=== PATIENT | female | born 1980 | race Hispanic/Latino ===

== ENCOUNTER 2019-07-06 18:53 | Inpatient (IN) | payer MEDICAID, SELFPAY ==
--- NOTE | ~2019-07-06 | CT_ITS ---
EXAMINATION: CT chest w con DATE: 07/06/2019 20:55 INDICATION: Chest mass TECHNIQUE: Computed tomography (CT) of the chest was performed with 100 cc Omnipaque 350 intravenous contrast. The dose-length product was 649.62 mGy-cm. Automated exposure control and iterative reconst ruction technique were employed. COMPARISON: None FINDINGS: There is a large soft tissue mass in the right thorax with serpiginous areas of internal va scularity particularly anteriorly. This soft tissue measures 17.5 x 14.1 x 11.9 cm. The mass abuts th e mediastinum with possible infiltration. There is slight deviation of the mediastinum to the left. T here is also mass effect on the dome of the liver. Heart size is normal. No significant pleural or pe ricardial effusion. No evidence for aortic aneurysm or dissection.0 no acute osseous abnormality. The re is a nonobstructing right renal stone. IMPRESSION: 1. Large soft tissue mass involving the right thorax with serpiginous internal vascularity. This mass like soft tissue measures 17.5 x 14.1 x 11.9 cm with mass effect on the mediastinum, surrounding lung and liver. Traumatic lung is a consideration, although there are no significant centrally located ai r bronchograms. Malignancies such as lymphoma is a consideration given the patient's age.. Recommend pulmonary referral with possible bronchoscopy for further assessment. Alternatively, percutaneous bio psy may be performed. Reviewed, dictated and finalized at location A. ISION CENTER MANAGER IMPRESSION: 1. Large soft tissue mass involving the right thorax with serpiginous internal vascularity. This masslike soft tissue measures 17.5 x 14.1 x 11.9 cm with mass effect on the mediastinum, surrounding lung and liver. Traumatic lung is a con sideration, although there are no significant centrally located air bronchogram s. Malignancies such as lymphoma is a consideration given the patient's age.. R ecommend pulmonary referral with possible bronchoscopy for further assessment. Alternatively, percutaneous biopsy may be performed.
--- NOTE | ~2019-07-06 | US_ITS ---
EXAMINATION: US abdomen complete DATE: 07/07/2019 14:03 INDICATION: Abdominal pain TECHNIQUE: Multiple grayscale and Doppler ultrasound images of the abdomen were obtained. COMPARISON: CT, 07/06/2019 FINDINGS: The head and and body of the pancreas are normal. The pancreatic tail is obscured by bowel gas. The liver is normal with normal echogenicity and echotexture. No surface nodularity. Normal hep atopetal flow in the main portal vein. The gallbladder is normal with no abnormal wall thickening, pe richolecystic fluid or stones. The normal common bile duct measures 4 mm. There was no sonographic Mu rphy sign. The visualized portions of the aorta and inferior vena cava are normal. The right kidney measures 9.5 x 4 x 4.4 cm. The left kidney measures 12.7 x 5.4 x 6.8 cm. The kidneys demonstrate normal parenchymal echogenicity. There is no hydronephrosis. The spleen is normal in dorys earance and measures 10.5 cm. A partially imaged mass is seen in the right pleural space. IMPRESSION: 1. No sonographic correlate for the patient's symptoms. 2. Partially imaged mass of the right pleural space. 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 Additional differential considerations include developmental anomaly of the lung or sarcoma azul rea these are considered less likely. Given the apparent pleural location of the mass, CT-guided perc utaneous biopsy is recommended. These findings and recommendations were discussed with Dr. Sheila Flores MD at 1452 hours on 07/07/2019. Reviewed, dictated and finalized at location A. PURIFIER IMPRESSION: 1. No sonographic correlate for the patient's symptoms. 2. Partially imaged mass of the right pleural space. With review of the CT perf ormed yesterday, the mass appears to be predominantly located within the pleura l space, suggesting fibrous tumor of the pleura. Additional differential consid erations include developmental anomaly of the lung or sarcoma however these are considered less likely. Given the apparent pleural location of the mass, CT-gu ided percutaneous biopsy is recommended. These findings and recommendations wer e discussed with Dr. Sheila Flores MD at 1452 hours on 07/07/2019.
--- NOTE | ~2019-07-06 | CT_ITS ---
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 TECHNIQUE: The procedure including was discussed with the patient using a medical scientific liaison. Risks discussed included bleeding and infection. The patient understood the risks and agreed to proceed. The patient was placed supine. The skin overlying the right chest was prepped and draped in sterile fashion. A nesthetic was administered with 1% lidocaine subcutaneously. A 19 gauge outer needle was advanced un jadile CT guidance to the lesion of interest. A 20 gauge core biopsy needle was then used to obtain 3 co re biopsy specimens. The needle was removed and the entry site was cleaned and dressed. The mA was ad justed according to patient size. Iterative reconstruction technique was employed. The dose-length pr oduct was 99.30 mGy-cm. There were no immediate complications. FINDINGS: CT images demonstrate the outer needle tip in a 17 cm pleural-based mass in right lung. IMPRESSION: 1. CT-guided core needle biopsy of a pleural-based mass in right lung. Reviewed, dictated and finalized at location A. ER OPERATOR
--- NOTE | ~2019-07-06 | CT_ITS ---
EXAMINATION: CT abdomen pelvis wo con DATE: 07/06/2019 20:03 INDICATION: Renal stones TECHNIQUE: Computed tomography (CT) of the abdomen and pelvis was performed without intravenous contr ast. The dose-length product was 685.26 mGy-cm. Automated exposure control and iterative reconstructi on technique were employed. COMPARISON: None. FINDINGS: Right lower lobe atelectasis. Heart size normal. No significant pleural or pericardial effu bret. There is a large right lower lobe mass is incompletely visualized. This mass measures maximum m easurement at 17.5 cm AP x14.1 cm transverse. There is mass effect on the adjacent liver. There is a 3 mm right renal stone which is nonobstructing. Small fat-containing umbilical hernia. Gal lbladder is contracted. No acute osseous abnormality. IMPRESSION: 1. Large soft tissue mass right lower lobe, incompletely visualized. This may represent focal parench ymal consolidation secondary to obstruction, although malignancy is not excluded. There is mass effec t on the adjacent liver. 2: 3 mm nonobstructing right renal stone. Reviewed, dictated and finalized at location A. AL POPPER IMPRESSION: 1. Large soft tissue mass right lower lobe, incompletely visualized. This may r epresent focal parenchymal consolidation secondary to obstruction, although mal ignancy is not excluded. There is mass effect on the adjacent liver. 2: 3 mm nonobstructing right renal stone.
[2019-07-06 18:56] VITALS: BP 154/106; PULSE 98; RESP 18; TEMP 36.6; O2SAT 98
[2019-07-06 19:28] LABS: Add Urine Microscopic? YES; Appearance Urine Clear (Clear); Bilirubin Urine Negative (Negative); Blood Urine 2+ (Negative); Color Urine Yellow (Yellow); Glucose Urine UA Negative (Negative); Ketones Urine Negative (Negative); Leukocyte Esterase Ur Negative LEU/UL (Negative); Mucus Urine Rare /lpf; Nitrate Urine Negative (Negative); Protein Urine Negative (Negative); RBC Urine 51-75 /hpf (0-2); Specific Grav Ur 1.021 (1.001-1.035); Squamous Epithelial Cell Urine Rare /hpf (Few); Urobilinogen Urine Negative mg/dL (<2.0); WBC Urine 0-3 /hpf
[2019-07-06 19:29] LABS: Basophils Absolute Auto 0.1 K/mm3 (0.0-0.1); Basophils Percent Auto 0.6 % (0.2-1.2); Eosinophils Absolute Auto 0.2 K/mm3 (0-0.3); Hematocrit 37.5 % (37.0-47.0); Hemoglobin 11.1 g/dL (12.0-15.0); Immature Granulocyte Absolute 0.07 K/mm3 (0.00-0.031); Immature Granulocyte Percent A 0.6 % (0-0.5); Lymphocytes Percent Auto 24.3 % (18.3-44.2); Mean Corpuscular HGB Conc 29.6 g/dl (32-36); Mean Corpuscular Hemoglobin 20.8 pg (26-34); Mean Corpuscular Volume 70.2 fl (80-100); Mean Platelet Volume 9.7 fl (7.4-10.4); Monocytes Absolute Auto 0.9 K/mm3 (0.1-0.6); Monocytes Percent Auto 7.8 % (2.6-8.5); Neutrophils Absolute Auto 7.7 K/mm3 (1.3-6.7); Neutrophils Percent Auto 64.7 % (45.5-73.1); Platelet Count Result 441 k/mm3 (150-375); Red Blood Count 5.34 M/mm3 (4.2-5.4); Red Cell Distribution Width 17.4 % (11.5-14.5); White Blood Count 11.9 K/mm3 (4.5-10.0)
--- NOTE | 2019-07-06 19:40 | ED.ABDPAIN ---
HPI - Abdominal Pain General Chief Complaint: Abdominal Pain Stated Complaint: Possible Time Seen by Provider: 07/06/19 19:02 Source: patient, RN notes reviewed and treatment manager Mode of arrival: ambulatory Limitations: no limitations History of Present Illness HPI narrative: A 38 y/o female presents to the ED with lower ABD pain for the past 3 days. She reports associated nause and that the pain radiates into her lower back. She states that her LNMP was on 04/15/19 and that she was taking BC but that she stopped them roughly 2 weeks ago. She notes that she had some very mild spotting yesterday. 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 She denies any dysuria, hematuria, urinary frequency, diarrhea, constipation, SOB, CP, and any other medical complaints at this time. MD elicited complaint: abdominal pain Onset (ago): day(s) (3) Location: other (lower) Radiation: back (lower) Associated symptoms: nausea Related Data Allergies Allergy/AdvReac Type Severity Reaction Status Date / Time No Known Allergies Allergy Verified 07/06/19 19:14 Review of Systems Review of Systems: All systems reviewed & are unremarkable except as noted in HPI and below Constitutional: Constitutional: Denies chills, Denies fatigue, Denies fever(s), Denies headache(s) and Denies night sweats Eyes: Eyes: Denies change in vision, Denies loss of vision and Denies other visual disturbances ENT: Denies headache(s), Denies hoarseness, Denies epistaxis, Denies nasal congestion and Denies sore throat Cardiovascular: Cardiovascular: Denies chest pain, Denies leg edema, Denies palpitations and Denies dyspnea Respiratory: Respiratory: Denies cough, Denies dyspnea and Denies wheezing Gastrointestinal: Gastrointestinal: Reports abdominal pain (lower), Denies constipation, Denies diarrhea, Reports nausea and Denies vomiting Genitourinary: Genitourinary: Denies hematuria, Denies urinary frequency and Denies dysuria Musculoskeletal: Musculoskeletal: Denies abnormal gait, Reports back pain (lower radiated from ABD), Denies deformity, Denies joint swelling, Denies muscle weakness and Denies numbness Integumentary/Breasts: Skin/Breast: Denies rash, Denies unusual bruising and Denies wounds Neurologic: Denies abnormal gait, Denies headache(s), Denies focal weakness, Denies loss of vision and Denies numbness Psychiatric: Psychiatric: Reports no additional psychiatric complaints Endocrine: Endocrine: Denies fatigue and Denies palpitations Hematologic/Lymphatic: Hematologic/Lymphatic: Denies easy bleeding and Denies easy bruising Allergic/Immunologic: Allergic/Immunologic: Denies wheezing PMFSH Past Medical History Medical History (Updated 07/06/19 @ 22:49 by Vicente Patino MD) History of miscarriage Medical history unknown Surgical History Surgical History (Updated 07/06/19 @ 20:40 by James Pendleton) Surgical history unknown Social History Social History (Updated 07/06/19 @ 21:35 by James Pendleton) Smoking status: Unknown if ever smoked Gender identity (if verbalized by the patient): Female Exam Const: General: healthy appearing, no acute distress and well developed Nutritional Appearance: well nourished Orientation/consciousness: patient oriented x3 (alert) and Other orientation findings (Alert) Limitations: no limitations HENMT: Head: normocephalic and atraumatic Ears: external ears normal General nose exam: No nasal discharge present and no epistaxis Face and sinus: face symmetric Mouth: Yes lip normal, Yes tongue normal and Yes moist mucous membranes Throat: other (No exudate, no erythema) Eyes: Conjunctivae: conjunctivae normal Sclera: sclerae normal EOM: EOMs intact bilaterally Neck: Neck: full ROM, no lymphadenopathy and supple Thyroid: thyroid normal Chest: Chest palpation & inspection: no tenderness Resp: Effort & Inspection: normal respiratory effort Auscultation: no rales, no rhonchi, no wheezes, dim
[2019-07-06 19:42] LABS: Alanine Aminotransferase 17 U/L (4-35); Alkaline Phosphatase 90 U/L (38-126); Aspartate Amino Transferase 22 U/L (14-36); Bilirubin,Total 0.2 mg/dL (0.2-1.3); Blood Urea Nitrogen 12 mg/dL (7-17); Calcium 9.1 mg/dL (8.4-10.2); Carbon Dioxide 29 mmol/L (22-30); Chloride 99 mmol/L (98-107); Estimated CRCL calculation 136 ml/min; Estimated Glomerular Filt Rate > 60; Glucose 140 mg/dL (65-105); Lipase 84 U/L (23-300); Potassium 3.8 mmol/L (3.4-5.0); Sodium 136 mmol/L (137-145)
[2019-07-06 21:02] VITALS: BP 138/93; PULSE 82; RESP 18; TEMP 36.6; O2SAT 94
[2019-07-06 22:32] VITALS: BP 135/90; PULSE 92; RESP 16; TEMP 36.4; O2SAT 96
--- NOTE | 2019-07-06 23:35 | ADMGEN ---
This patient, Caterina Nuñez, was admitted to 2 Medical Room 249-01. Patient/family oriented to hospital policies and general routines including ID bracelet, bed and alarms, visiting hours, pain management, procedures, bathroom and other care routines, personal items, smoking policy, room service/diet, and visiting hours. Valuables list has been completed. Information on how to activate the Rapid Response Team has been discussed. Patient/Family are encouraged to report perceived risks to care and to ask questions if they do not understand what they are told or what they should do.
[2019-07-06 23:50] VITALS: BP 128/72; PULSE 90; RESP 18; TEMP 36.1; O2SAT 97; BMI 43.7
[2019-07-07] MEDS: LACTATED RINGERS 1,000 ML 60 ML IV CONT ×2 (00:21→19:20)
--- NOTE | 2019-07-07 05:54 | HP_ITS ---
DATE OF SERVICE: 07/06/2019 CHIEF COMPLAINT: Abdominal pain. HISTORY OF PRESENT ILLNESS: The patient is a 38-year-old female with no significant past medical history, was admitted to the emergency room with a complaint of having lower abdominal pain, going on for the last 3 days. According to the patient, her last menstrual cycle was on April 15, 2019, and she was taking control pills, and she then stopped taking control pills 2 weeks ago, and she started having mild spotting, and also she developed lower abdominal pain that she assumed was secondary to her spotting. Pain was dull in nature, nonradiating, and no exacerbating or relieving factors. The patient took some Tylenol and she got relief from the pain. It came back as a cramping pain in the lower abdominal area. The patient denies any burning on urination, fever, chills, chest pain, nausea, or vomiting, no weight loss. REVIEW OF SYSTEMS: Positive for lower abdominal pain and spotting. All other 10 review of systems were reviewed with the patient and found to be negative. ALLERGIES: THE PATIENT IS NOT ALLERGIC TO ANY MEDICATIONS. PAST MEDICAL HISTORY: None. PAST SURGICAL HISTORY: None. SOCIAL HISTORY: No smoking. No alcohol. FAMILY HISTORY: Noncontributory. MEDICATIONS: No known medications at the present time. PHYSICAL EXAMINATION: VITAL SIGNS: At the time of admission include blood pressure was 154/106, it came down to 135/90, pulse rate 80, respirations 18, temperature 98.6, pain level, level 2. HEENT EXAMINATION: Pupils are equally reactive to light. Follows finger. NECK: No JVD. No bruits. Neck is supple. LUNGS: Air entry equal. No distant sounds. HEART: S1 and S2. Rate and rhythm are regular. No S3. No murmurs. ABDOMEN: Soft and nontender. Bowel sounds are positive. No hepatosplenomegaly. EXTREMITIES: No cyanosis, clubbing, or edema. TILER: Alert and oriented x3. No neurological deficits. PERTINENT LABORATORY DATA: WBC count is 11.9, hemoglobin is 11.1, and platelet count is 441. Sodium 136, potassium 3.8, BUN 12, creatinine 0.5, glucose is 140. The patient's UA shows rbc's 51 to 75, nitrite negative, leukocyte esterase negative, and wbc's 0 to 3. Sodium 136. Glucose 140. The patient's abdominal CT was done that showed a large soft tissue mass in the right lower lobe, incompletely visualized. This may represent consolidation secondary to obstruction, although malignancy is not excluded. This was a mass effect on the adjacent liver. A 3 mm nonobstructing right renal stone. CT chest: A large soft tissue mass involving the right thorax with internal vascularity. This mass-like soft tissue measuring 17.5 x 14 x 11 cm with mass effect in the mediastinum surrounding the lung and the liver, traumatic lung is consideration, although there are no significant centrally located air lymphoma is consideration given the patient's age. Bronch is recommended. ASSESSMENT AND PLAN: 1. Lower abdominal pain. 2. Incidental finding of a mass in the chest area. Plan: Admit and hem-onc consult. The patient's WBC count is although 11.1, but the patient does not have any sign of infection at the present time. We will hold off on antibiotic at the present time. The patient does not have any fever. 3. Slightly elevated glucose. We will monitor the glucose closely. The patient will stay for more than 2 days in the hospital. The patient is full code at the present time. Further evaluation and treatment of the patient will be done according to the lab data available and recommendations by the specialists. We will also monitor anemia very closely, and if needed, we will also get ob-counter tender consult for her spotting. D
[2019-07-07 06:11] VITALS: BP 168/61; PULSE 63; RESP 16; TEMP 37.7; O2SAT 100
--- NOTE | 2019-07-07 11:17 | PCCCNOTE ---
On 07/07/19, the student, [Rosaura High ], provided care and [facility]. I have reviewed the student's documentation and agree with the findings.
--- NOTE | 2019-07-07 11:30 | PM.IMPN ---
Progress Note: A&P Assessment and Plan (1) Mass in chest: Code(s): R22.2 - Localized swelling, mass and lump, trunk Status: Acute Assessment and Plan: CT chest shows Large soft tissue mass involving the right thorax with serpiginous internal vascularity. This masslike soft tissue measures 17.5 x 14.1 x 11.9 cm with mass effect on the mediastinum, surrounding lung and liver. I will consult pulmology for possible bronchoscopy. consult hem oncology tomorrow. (2) Menorrhagia: Code(s): N92.0 - Excessive and frequent menstruation with regular cycle Status: Acute Assessment and Plan: I will also consult tool design drafter for menorrhagia and irregular spotting. Pt is Cymro speaking aware that she will be seen by specialists. (3) Liver mass: Code(s): R16.0 - Hepatomegaly, not elsewhere classified Status: Acute Assessment and Plan: Order US of liver for better visualisation (4) DVT prophylaxis: Code(s): Z29.9 - Encounter for prophylactic measures, unspecified Status: Acute Assessment and Plan: SCDS Subjective Date/time seen: 07/07/19 11:30 Interval history: 38-year-old female with no significant past medical history, was admitted to the emergency room with a complaint of having lower abdominal pain, going on for the last 3 days. Complains of abdominal cramps and slight vaginally spotting. CT chest shows Large soft tissue mass involving the right thorax with serpiginous internal vascularity. This masslike soft tissue measures 17.5 x 14.1 x 11.9 cm with mass effect on the mediastinum, surrounding lung and liver. I will consult pulmology for possible bronchoscopy. I will also consult tool design drafter for menorrhagia and irregular spotting. Pt is Cymro speaking aware that she will be seen by specialists. Review of Systems Review of Systems: All systems reviewed & are unremarkable except as noted in HPI and below Constitutional: Constitutional: Reports fatigue, Reports lethargy and Reports weakness Genitourinary: Comments: abdominal pains lower Exam Narrative: Exam Narrative: NECK: No JVD. No bruits. Neck is supple. LUNGS: Air entry equal. No distant sounds. HEART: S1 and S2. Rate and rhythm are regular. No S3. No murmurs. ABDOMEN: Soft and nontender. Bowel sounds are positive. No hepatosplenomegaly. EXTREMITIES: No cyanosis, clubbing, or edema. PHOTOFLASH POWDER MIXER: Alert and oriented x3. No neurological deficits. Objective Data Vital Signs Vital Signs: Vital Signs - 24 hr 07/06/19 18:56 07/06/19 21:02 07/06/19 22:32 Temperature 36.6 C 36.6 C 36.4 C Pulse Rate 98 82 92 Respiratory Rate 18 18 16 Blood Pressure 154/106 H 138/93 H 135/90 Pulse Oximetry 98 94 96 07/06/19 23:50 07/07/19 06:11 Temperature 36.1 C L 37.7 C H Pulse Rate 90 63 Respiratory Rate 18 16 Blood Pressure 128/72 168/61 H Pulse Oximetry 97 100 Intake/Output Intake/Output: Intake & Output 07/04/19 07/05/19 07/06/19 07/07/19 23:59 23:59 23:59 23:59 Intake Total 240 Output Total 800 Balance -560 Meds/Results Medications: Active Medications Generic Name Dose Route Start Last Admin Trade Name Freq PRN Reason Stop Dose Admin Acetaminophen 650 mg 07/06/19 22:42 Tylenol Tablet PO Q4H PRN Mild Pain (1-3) or Fever Hydrocodone Bitart/Acetaminophen 1 tab 07/06/19 22:42 07/07/19 07:46 [place] 5-325 Mg PO 1 tab Q4H PRN Administration Pain Rated 4-6 Lactated Ringer's 1,000 mls @ 60 mls/hr 07/06/19 22:45 07/07/19 00:21 Lr - Lactated Ringers Iv IV CONT 60 mls/hr .[id number] WILL Administration Ondansetron HCl 4 mg 07/06/19 22:42 Zofran Inj IV PUSH Q4H PRN Nausea Radiology Results: ITS Impressions Abdomen/Pelvis CT 07/06/19 20:11 IMPRESSION: 1. Large soft tissue mass right lower lobe, incompletely visualized. This may represent focal parenchymal consolidation secondary to obstruction, although malignancy is not ex
[2019-07-07 14:00] VITALS: BP 132/81; PULSE 88; RESP 16; TEMP 36.9; O2SAT 96
[2019-07-07 15:37] LABS: Beta HCG Quantitative < 2.39 mIU/ML
[2019-07-07] MEDS: FERROUS SULFATE 324 MG TABLET PO (19:21)
[2019-07-07 20:01] LABS: Iron 50 ug/dL (37-170)
[2019-07-07 20:10] LABS: Percent Iron Saturation 10 % (20-50)
[2019-07-07 22:33] VITALS: BP 133/85; PULSE 81; RESP 16; TEMP 35.9; O2SAT 96
--- NOTE | 2019-07-08 02:41 | CONS_ITS ---
DATE OF CONSULTATION: 07/07/2019 REASON FOR CONSULTATION: Pleural base mass. HISTORY OF PRESENTING ILLNESS: This is a 38-year-old female, who has been in good health, came into the hospital with complaint of right-sided chest wall pain and abdominal pain for the last 3 to 4 days duration. She denies any fevers and chills. Denies any weight loss. Denies any night sweats. She also has pain in the lower extremities and neck. She has no new lumps, bumps, or lymphadenopathy. CT abdomen and pelvis was done that showed a 17.5 x 14.1 cm mass in the right lower lobe with mass effect on the adjacent liver. REVIEW OF SYSTEMS: Twelve-point review of system was reviewed and as per HPI, otherwise negative. PAST MEDICAL HISTORY: None. PAST SURGICAL HISTORY: None. SOCIAL HISTORY: Denies any history of smoking and drinking. FAMILY HISTORY: There is no history of malignancy in the family. HOME MEDICATIONS: Reviewed. ALLERGIES: REVIEWED. PHYSICAL EXAMINATION: GENERAL: This patient is an obese female, alert and oriented. VITAL SIGNS: Per nursing note. HEENT: Normocephalic, atraumatic. Clear oropharynx. LUNGS: Clear to auscultation bilaterally. CARDIOVASCULAR: Regular rate and rhythm. No murmurs. ABDOMEN: Tender in the right upper quadrant. Bowel sounds are positive. No hepatosplenomegaly. EXTREMITIES: No edema. NEUROLOGIC: Grossly intact. LABORATORY DATA: WBC 11.9, hemoglobin 11.1, MCV 70.2, platelet 441,000, neutrophils 64%, lymphocytes 24%, monocytes 0.9%, eosinophils 2.0, basophils 0.6. Creatinine 0.5, calcium 9.1, total bilirubin 0.2, AST 22, ALT 17. ASSESSMENT AND PLAN: 1. Large soft tissue mass involving right side of the thorax. The patient is a 38-year-old obese female, who presented with 3 to 4 days history of abdominal pain. CT scan was done that shows 17.5 x 14.1 cm mass in the right lower lobe area with some mass effect on the adjacent liver. CT chest was also performed that showed a large soft tissue mass involving the right side of the thorax with mass effect in the mediastinum surrounding lung and liver. Differential diagnosis includes lymphoma versus sarcoma versus benign etiology. I have ordered CT-guided biopsy of the mass. I have provided this patient my office information. Based on the pathology, we will make further recommendations. 2. Microcytic anemia. I will order iron studies and we will start her on iron replacement. POORNIMA Carmelo HILL M.D. WIRE STEWARD WIRE STEWARD D [place]: [place]
[2019-07-08 05:56] LABS: Hemoglobin 11.2 g/dL (12.0-15.0); Mean Corpuscular HGB Conc 30.3 g/dl (32-36); Mean Corpuscular Volume 69.4 fl (80-100); Mean Platelet Volume 9.8 fl (7.4-10.4); Platelet Count Result 426 k/mm3 (150-375); Red Blood Count 5.33 M/mm3 (4.2-5.4); Red Cell Distribution Width 17.2 % (11.5-14.5); White Blood Count 10.6 K/mm3 (4.5-10.0)
[2019-07-08 06:01] LABS: Prothrombin Time 13.2 Seconds (11.1-14.7)
[2019-07-08 06:04] LABS: Blood Urea Nitrogen 11 mg/dL (7-17); Calcium 8.8 mg/dL (8.4-10.2); Carbon Dioxide 25 mmol/L (22-30); Chloride 102 mmol/L (98-107); Estimated CRCL calculation 156 ml/min; Estimated Glomerular Filt Rate > 60; Glucose 96 mg/dL (65-105); Potassium 3.4 mmol/L (3.4-5.0); Sodium 136 mmol/L (137-145)
[2019-07-08 06:15] VITALS: BP 126/74; PULSE 88; RESP 18; TEMP 35.8; O2SAT 96
[2019-07-08] MEDS: LACTATED RINGERS 1,000 ML 60 ML IV CONT (09:31)
[2019-07-08] MEDS: FERROUS SULFATE 324 MG TABLET PO ×2 (09:34→17:43)
[2019-07-08] MEDS: ALPRAZOLAM 0.5 MG TABLET PO (09:56)
[2019-07-08 10:30] VITALS: BP 143/93; PULSE 85; RESP 16; O2SAT 93
[2019-07-08 11:14] VITALS: BP 141/81; PULSE 88; RESP 18; O2SAT 94
--- NOTE | 2019-07-08 12:39 | WPDCN ---
Assessment and Plan Assessment and plan (1) Irregular periods: Onset Date: ~06/2019 Code(s): N92.6 - Irregular menstruation, unspecified Status: Acute Assessment and Plan: 38-year-old female with a history of an one time late period. She started her period several days ago and this was after she stopped her control pills which is expected. She does not have any concerning history for irregular periods. Her bimanual exam was normal. Her test was negative. She was informed that the one irregular period is not uncommon once is ruled out. Agree with cessation of the oral contraceptive pill until the etiology of the thoracic mass is fully worked up. After that she can discuss with her land title examiner if it would be okay to continue hormonal contraception. At this time no further workup is needed from the gynecology service. She should follow up with her primary land title examiner. HPI Data of Consult Date/Time: Patient seen on 07/07/2019 1630. Requesting Physician: Gian Mireles MD Primary Care Provider: UNKNOWN,DOCTOR Consult Narrative Narrative: Caterina Nuñez is a 38 year old female 014. She has had one vaginal and three C sections I was asked to consult on her due to history of irregular bleeding. She was found to have a mass in her upper abdomen at this admission. I did talk to her with the [employer] interpreting system. She states that she had been on Nexplanon for over a year she had it taken out a year ago. She was started on control pills. Her periods have been regular on control pills. She did notice that her last period was late. she was over a week late. She was also having nausea and she stopped her control pills due to concern for . She did schedule a para operator visit for her routine Gyne polyp which was scheduled for Friday. Her last Pap smear was in September of 2018. She denies any history of dysplasia. She did start having a light period 3 days ago. she denies any history of bleeding in between her. Denies any history of heavy periods Her recent hemoglobin hematocrit was normal. She does not have any hypovolemic symptoms. Her serum test was negative. she denies any abnormal vaginal discharge itching or irritation. Denies any pain with intercourse. Review of Systems Review of Systems: All systems reviewed & are unremarkable except as noted in HPI and below Constitutional: Constitutional: Reports no additional constitutional complaints Eyes: Eyes: Reports no additional eye complaints ENT: Reports Normal hearing present Cardiovascular: Cardiovascular: Denies chest pain and Denies dyspnea Respiratory: Respiratory: Reports no additional respiratory complaints, Reports cough, Denies dyspnea and Reports other Gastrointestinal: Gastrointestinal: Reports nausea and Reports other ( Abdominal pain) Genitourinary: Genitourinary: Reports no additional female genitourinary complaints, Reports as per HPI, Denies dyspareunia, Denies vaginal discharge, Denies vaginal dryness, Denies vaginal odor and Denies vaginal pruritus Integumentary/Breasts: Skin/Breast: Denies breast mass and Denies nipple discharge Neurologic: Reports Normal hearing present Psychiatric: Psychiatric: Reports no additional psychiatric complaints Endocrine: Endocrine: Reports no additional endocrine complaints Hematologic/Lymphatic: Hematologic/Lymphatic: Reports no additional hematologic/lymphatic complaints [facility] Past Medical History Medical History (Updated 07/08/19 @ 12:49 by Yves Hatch MD) History of miscarriage Medical history unknown Surgical History Surgical History (Updated 07/06/19 @ 20:40 by James Pendleton) Surgical history unknown Social History Social History (Updated 07/06/19 @ 21:35 by James Pendleton) Smoking status: Never smoker Alcohol intake: never Substance use: never Gender identity (if verbalized
--- NOTE | 2019-07-08 13:37 | PM.IMPN ---
Progress Note: A&P Assessment and Plan (1) Mass in chest: Code(s): R22.2 - Localized swelling, mass and lump, trunk Status: Acute Assessment and Plan: CT chest shows Large soft tissue mass involving the right thorax with serpiginous internal vascularity. This masslike soft tissue measures 17.5 x 14.1 x 11.9 cm with mass effect on the mediastinum, surrounding lung and liver. Pt for a CT guided lung biopsy today under radiology. Ct chest shows R sided thoracic mass maybe from the pleural space. (2) Menorrhagia: Code(s): N92.0 - Excessive and frequent menstruation with regular cycle Status: Acute Assessment and Plan: I will also consult tower climber for menorrhagia and irregular spotting. Pt is Mozambican speaking aware that she will be seen by specialists. See Dr Felix recommendations. (3) Liver mass: Code(s): R16.0 - Hepatomegaly, not elsewhere classified Status: Acute Assessment and Plan: Liver US ordered - liver appears NL (4) DVT prophylaxis: Code(s): Z29.9 - Encounter for prophylactic measures, unspecified Status: Acute Assessment and Plan: SCDS Subjective Date/time seen: 07/08/19 13:37 Interval history: 38-year-old female with no significant past medical history, was admitted to the emergency room with a complaint of having lower abdominal pain, going on for the last 3 days. Complains of abdominal cramps and slight vaginally spotting. CT chest shows Large soft tissue mass involving the right thorax with serpiginous internal vascularity. This masslike soft tissue measures 17.5 x 14.1 x 11.9 cm with mass effect on the mediastinum, surrounding lung and liver. Pt seen by hematology/ oncology yesterday. Pt will have lung biopsy today. I will also consult tower climber for menorrhagia and irregular spotting. Pt is Moz[place]ican speaking aware that she will be seen by specialists. Review of Systems Review of Systems: All systems reviewed & are unremarkable except as noted in HPI and below Respiratory: Respiratory: Denies chest congestion, Denies cough, Denies hemoptysis, Denies excessive phlegm production, Denies pain with cough, Denies dyspnea, Denies dyspnea on exertion, Denies snoring and Denies stridor Exam Narrative: Exam Narrative: GENERALLY: Well NECK: No JVD. No bruits. Neck is supple. LUNGS: Air entry equal. No distant sounds. HEART: S1 and S2. Rate and rhythm are regular. No S3. No murmurs. ABDOMEN: Soft and nontender. Bowel sounds are positive. No hepatosplenomegaly. EXTREMITIES: No cyanosis, clubbing, or edema. HALAL BUTCHER: Alert and oriented x3. No neurological deficits. Objective Data Vital Signs Vital Signs: Vital Signs - 24 hr 07/07/19 14:00 07/07/19 22:33 07/08/19 06:15 Temperature 36.9 C 35.9 C L 35.8 C L Pulse Rate 88 81 88 Respiratory Rate 16 16 18 Blood Pressure 132/81 133/85 126/74 Pulse Oximetry 96 96 96 07/08/19 10:30 07/08/19 11:14 Temperature Pulse Rate 85 88 Respiratory Rate 16 18 Blood Pressure 143/93 H 141/81 H Pulse Oximetry 93 94 Intake/Output Intake/Output: Intake & Output 07/05/19 07/06/19 07/07/19 07/08/19 23:59 23:59 23:59 23:59 Intake Total 1820 897 Output Total 800 Balance 1020 897 Meds/Results Medications: Active Medications Generic Name Dose Route Start Last Admin Trade Name Freq PRN Reason Stop Dose Admin Acetaminophen 650 mg 07/06/19 22:42 Tylenol Tablet PO Q4H PRN Mild Pain (1-3) or Fever Hydrocodone Bitart/Acetaminophen 1 tab 07/06/19 22:42 07/07/19 14:44 [place] 5-325 Mg PO 1 tab Q4H PRN Administration Pain Rated 4-6 Alprazolam 0.5 mg 07/07/19 15:27 07/08/19 09:56 Xanax PO 0.5 mg TID PRN Administration Anxiety Ferrous Sulfate 324 mg 07/07/19 18:30 07/08/19 09:34 Ferrous Sulfate PO 324 mg BIDWM WILL Administration Lactated Ringer's 1,000 mls @ 60 mls/hr 07/06/19 22:45 07/08/19 09:31 Lr - Lactated Ringers Iv
[2019-07-08 14:00] VITALS: BP 143/74; PULSE 93; RESP 14; TEMP 37.3; O2SAT 95
[2019-07-08 20:00] VITALS: PULSE 93; RESP 14; O2SAT 95
[2019-07-08 22:00] VITALS: BP 124/64; PULSE 84; RESP 16; TEMP 36.2; O2SAT 97
[2019-07-09] MEDS: LACTATED RINGERS 1,000 ML 60 ML IV CONT (05:58)
[2019-07-09 06:00] VITALS: BP 110/67; PULSE 82; RESP 16; TEMP 36; O2SAT 94
[2019-07-09] MEDS: ACETAMINOPHEN 325 MG TABLET 650 MG PO (06:03)
[2019-07-09] MEDS: FERROUS SULFATE 324 MG TABLET PO ×2 (09:11→17:19)
--- NOTE | 2019-07-09 13:31 | PM.IMPN ---
Progress Note: A&P Assessment and Plan (1) Mass in chest: Code(s): R22.2 - Localized swelling, mass and lump, trunk Status: Acute Assessment and Plan: CT chest shows Large soft tissue mass involving the right thorax with serpiginous internal vascularity. This masslike soft tissue measures 17.5 x 14.1 x 11.9 cm with mass effect on the mediastinum, surrounding lung and liver. Pt for a CT guided lung biopsy today under radiology. Ct chest shows R sided thoracic mass maybe from the pleural space. Awaiting results. (2) Menorrhagia: Code(s): N92.0 - Excessive and frequent menstruation with regular cycle Status: Acute Assessment and Plan: I will also consult polisher and buffer for menorrhagia and irregular spotting. Pt is Polish speaking aware that she will be seen by specialists. See Dr Felix recommendations. (3) Liver mass: Code(s): R16.0 - Hepatomegaly, not elsewhere classified Status: Acute Assessment and Plan: Liver US ordered - liver appears NL (4) DVT prophylaxis: Code(s): Z29.9 - Encounter for prophylactic measures, unspecified Status: Acute Assessment and Plan: SCDS Subjective Date/time seen: 07/09/19 13:31 Interval history: 38-year-old female with no significant past medical history, was admitted to the emergency room with a complaint of having lower abdominal pain, going on for the last 3 days. Complains of abdominal cramps and slight vaginally spotting. CT chest shows Large soft tissue mass involving the right thorax with serpiginous internal vascularity. This mass like soft tissue measures 17.5 x 14.1 x 11.9 cm with mass effect on the mediastinum, surrounding lung and liver. Pt seen by hematology/ oncology yesterday. Pt sp lung biopsy yesterday, awaiting results, if no results soon, can be discharged with follow up with Dr Camp on the weekend. Pt had a consult polisher and buffer for menorrhagia and irregular spotting, pt can follow them as outpatient. Pt is Polish speaking using interpretor to conversate. Review of Systems Constitutional: Constitutional: Reports fatigue, Reports lethargy, Denies snoring and Reports weakness Respiratory: Respiratory: Reports no additional respiratory complaints Exam Narrative: Exam Narrative: GENERALLY: Well NECK: No JVD. No bruits. Neck is supple. LUNGS: Air entry equal. No distant sounds. HEART: S1 and S2. Rate and rhythm are regular. No S3. No murmurs. ABDOMEN: Soft and nontender. Bowel sounds are positive. No hepatosplenomegaly. EXTREMITIES: No cyanosis, clubbing, or edema. ELECTRONIC TESTER: Alert and oriented x3. No neurological deficits. Objective Data Vital Signs Vital Signs: Vital Signs - 24 hr 07/08/19 14:00 07/08/19 20:00 07/08/19 22:00 Temperature 37.3 C 36.2 C L Pulse Rate 93 93 84 Respiratory Rate 14 14 16 Blood Pressure 143/74 H 124/64 Pulse Oximetry 95 95 97 07/09/19 06:00 Temperature 36.0 C L Pulse Rate 82 Respiratory Rate 16 Blood Pressure 110/67 Pulse Oximetry 94 Intake/Output Intake/Output: Intake & Output 07/06/19 07/07/19 07/08/19 07/09/19 23:59 23:59 23:59 23:59 Intake Total 1820 2041 1116 Output Total 800 Balance 1020 2041 1116 Meds/Results Medications: Active Medications Generic Name Dose Route Start Last Admin Trade Name Freq PRN Reason Stop Dose Admin Acetaminophen 650 mg 07/06/19 22:42 07/09/19 06:03 Tylenol Tablet PO 650 mg Q4H PRN Administration Mild Pain (1-3) or Fever Hydrocodone Bitart/Acetaminophen 1 tab 07/06/19 22:42 07/08/19 14:26 [place] 5-325 Mg PO 1 tab Q4H PRN Administration Pain Rated 4-6 Alprazolam 0.5 mg 07/07/19 15:27 07/08/19 09:56 Xanax PO 0.5 mg TID PRN Administration Anxiety Ferrous Sulfate 324 mg 07/07/19 18:30 07/09/19 09:11 Ferrous Sulfate PO 324 mg BIDWM WILL Administration Lactated Ringer's 1,000 mls @ 60 mls/hr 07/06/19 22:45 07/09/19 05:58 Lr - Lactated Joel
[2019-07-09 14:00] VITALS: BP 129/82; PULSE 93; RESP 16; TEMP 36.6; O2SAT 96
--- NOTE | 2019-07-09 17:04 | WPDONCPN ---
Progress Note: A/P - Additional Plan Right-sided chest wall mass with displacement of mediastinum and liver. Patient is status post biopsy and pathology is pending. Patient can be discharged home for oncology standpoint and should follow up with us as an outpatient to discuss pathology report and management. Iron deficiency anemia. She is on oral iron replacement. Irregular and heavy menstrual bleeding. Gynecology service consulted. - Time Spent With Patient Total time spent is greater than 50% in coordination of care (as documented) at patient's floor/unit and/or counseling patient: 15 - 25 minutes Subjective Interval history: Right-sided chest wall mass with liver mass Microcytic anemia Review of Systems - Review of Systems Patient complain of right-sided chest wall pain and right arm and shoulder pain. Denies any shortness of breath and chest pain. Denies any other new complaints. - Neurologic Reports hearing normal, Reports weakness, Denies abnormal gait, Denies headache(s), Denies focal weakness, Denies loss of vision, Denies numbness Exam Vital signs: Temp Pulse Resp BP Pulse Ox 36.6 C 93 16 129/82 96 07/09/19 14:00 07/09/19 14:00 07/09/19 14:00 07/09/19 14:00 07/09/19 14:00 Lungs are clear to auscultation bilaterally Cardiovascular regular rate rhythm no murmurs Abdomen soft nontender nondistended Extremities no edema PN: Objective Data - Labs CBC & Chem 7: 07/08/19 05:08 07/08/19 05:08
[2019-07-09 20:00] VITALS: PULSE 82; RESP 18; O2SAT 96
[2019-07-09 22:00] VITALS: BP 119/73; PULSE 82; RESP 18; TEMP 36.6; O2SAT 96
[2019-07-10] MEDS: LACTATED RINGERS 1,000 ML 60 ML IV CONT (00:04)
[2019-07-10 06:00] VITALS: BP 114/64; PULSE 74; RESP 20; TEMP 36.4; O2SAT 98
[2019-07-10 06:00] LABS: Hematocrit 35.7 % (37.0-47.0); Hemoglobin 10.7 g/dL (12.0-15.0); Mean Corpuscular Hemoglobin 21.2 pg (26-34); Mean Corpuscular Volume 70.7 fl (80-100); Mean Platelet Volume 10.1 fl (7.4-10.4); Platelet Count Result 381 k/mm3 (150-375); Red Blood Count 5.05 M/mm3 (4.2-5.4); Red Cell Distribution Width 17.6 % (11.5-14.5); White Blood Count 9.4 K/mm3 (4.5-10.0)
[2019-07-10 06:19] LABS: Blood Urea Nitrogen 8 mg/dL (7-17); Calcium 8.7 mg/dL (8.4-10.2); Carbon Dioxide 23 mmol/L (22-30); Chloride 104 mmol/L (98-107); Estimated CRCL calculation 190 ml/min; Estimated Glomerular Filt Rate > 60; Glucose 89 mg/dL (65-105); Potassium 3.4 mmol/L (3.4-5.0); Sodium 136 mmol/L (137-145)
--- NOTE | 2019-07-10 08:38 | PM.DS ---
DS: Diagnosis Admitting Diagnosis Admitting Diagnosis: Localized swelling, mass and lump, trunk Discharge Diagnosis (1) Mass in chest: Code(s): R22.2 - Localized swelling, mass and lump, trunk Status: Acute Assessment and Plan: 38-year-old female with no significant past medical history, was admitted to the emergency room with a complaint of having lower abdominal pain, going on for the last 3 days. Complains of abdominal cramps and slight vaginally spotting. CT chest shows Large soft tissue mass involving the right thorax with serpiginous internal vascularity. This mass like soft tissue measures 17.5 x 14.1 x 11.9 cm with mass effect on the mediastinum, surrounding lung and liver. Pt seen by hematology/ oncology yesterday. Pt sp lung biopsy yesterday, still awaiting results, today, pt asymptomatic, can be discharged with follow up with Dr Camp, next week. Pt had a consult leaf stamper for menorrhagia and irregular spotting, pt can follow them as outpatient. Pt is Kazakh speaking using interpretor to conversate in hospital. CT chest shows Large soft tissue mass involving the right thorax with serpiginous internal vascularity. This masslike soft tissue measures 17.5 x 14.1 x 11.9 cm with mass effect on the mediastinum, surrounding lung and liver. Pt for a CT guided lung biopsy completed under radiology. Ct chest shows R sided thoracic mass maybe from the pleural space. Awaiting results. Pt must follow up in Dr Camp clinic next week. (2) Menorrhagia: Code(s): N92.0 - Excessive and frequent menstruation with regular cycle Status: Acute Assessment and Plan: I will also consult leaf stamper for menorrhagia and irregular spotting. Pt is Kazakh speaking aware seen by lead database administrator specialist- Dr Felix. Pt to follow up with her for further recommendations in her clinic. (3) Liver mass: Code(s): R16.0 - Hepatomegaly, not elsewhere classified Status: Acute Assessment and Plan: Liver US ordered - liver appears NL DS: Summary Time Spent with Patient Time attestation: Total time spent providing and/or coordinating discharge services:38 minutes on day of discharge Exam Narrative: Exam Narrative: GENERALLY: Well NECK: No JVD. No bruits. Neck is supple. LUNGS: Air entry equal. No distant sounds. HEART: S1 and S2. Rate and rhythm are regular. No S3. No murmurs. ABDOMEN: Soft and nontender. Bowel sounds are positive. No hepatosplenomegaly. EXTREMITIES: No cyanosis, clubbing, or edema. BRIDGE IRONWORKER: Alert and oriented x3. No neurological deficits. DS: Data Data Completed and Pending Labs on day of discharge: Labs from last 24 hours 07/10/19 07/10/19 05:21 05:21 WBC 9.4 RBC 5.05 Hgb 10.7 L Hct 35.7 L MCV 70.7 L MCH 21.2 L MCHC 30.0 L RDW 17.6 H Plt Count 381 H MPV 10.1 Sodium 136 L Potassium 3.4 Chloride 104 Carbon Dioxide 23 BUN 8 Creatinine 0.40 L Estim Creat Clear Calc 190 Estimated GFR > 60 Glucose 89 Calcium 8.7 Discharge Plan Discharge Attending physician on discharge: Sheila Flores Consulting providers: You Camp ; Yves Hatch Discharging Clinician: Sheila Flores Anticipated Discharge Date/Time: 07/10/19 08:37 Patient Disposition: Home, Self-Care Activity: as tolerated Diet: regular Patient Instructions: Antibiotic Form Stand Alone Forms: General Discharge Information Follow-up/Referrals: You Camp MD [Physician] - (next week urgent follow up ) Yves Hatch MD [Physician] - (follow up in 2-3 weeks time ) Discharge Medications: New ferrous sulfate 325 mg (65 mg iron) Tablet 324 mg PO BIDWM Qty: 30 RF: 0 No Action No Home Medications RF: 0 Date of admission: 07/06/19 22:42 Primary Care Provider: UNKNOWN,DOCTOR Admitting Provider: Cameron Mireles Attending physician on admission: Cameron Mireles Condition: Stable
[2019-07-10] MEDS: FERROUS SULFATE 324 MG TABLET PO (08:51)
[2019-07-10] MEDS: ACETAMINOPHEN 325 MG TABLET 650 MG PO (08:57)
[2019-07-10 09:02] LABS: Prolactin 9.4 ng/mL (***)
--- NOTE | 2019-07-10 12:00 | PC.NURSE ---
Lab Animal Technologist used for patients discharge care instructions. Spoke with Oly (#[id number]) for discharge instructions. Patient verbalized understanding and follow up instructions that are necessary for her care. Questions were answered.
== END 2019-07-10 12:15 | disposition home or self-care (01) | DRG 144 ==
LOC: ANHED 22:49 → ANH2MED 07-07 05:41
PROVIDERS: Internal Medicine Hematology & Oncology; Obstetrics & Gynecology; Admitting Provider Internal Medicine; Emergency Provider Emergency Medicine; Visit Provider Family Medicine
DX: R22.2 Localized swelling, mass and lump, trunk (principal); N92.0 Excessive and frequent menstruation with regular cycle; E66.9 Obesity, unspecified; Z68.41 Body mass index [BMI] 40.0-44.9, adult; N92.6 Irregular menstruation, unspecified; D50.9 Iron deficiency anemia, unspecified; R16.0 Hepatomegaly, not elsewhere classified
CPT/HCPCS: 32405; 36415; 71260; 74176; 76700; 77012; 80048; 80053; 81001; 81025; 82728; 83540; 83550; 83690; 84146; 84443; 84702; 85025; 85027; 85610; 88305; 88342; 99285; A9270; J7120; Q9967

== ENCOUNTER 2020-08-07 16:43 | Emergency (ER) | payer OTHER, SELFPAY ==
--- NOTE | ~2020-08-07 | US_ITS ---
EXAMINATION: US OB <=14 wk fetus w TV DATE: 08/07/2020 20:55 INDICATION: Vaginal bleeding during first trimester TECHNIQUE: Real-time pelvic transabdominal and transvaginal ultrasound was performed. COMPARISON: None. FINDINGS: The uterus measures 12.1 x 7.4 x 5.9 cm. There is an intrauterine gestational sac. A 2.8 x 0.9 cm hypoechoic area is present adjacent to the gestational sac. No definite yolk sac is identifie d. heart motion is identified measuring 154 beats per minute (bpm) by M-mode Doppler. The pole is difficult to definitively measure. The mean sac diameter measures 2.4 cm, which correlates w ith an estimated gestational age of 7 weeks and 3 day(s) (+/-) 5 day(s). The right ovary is not visualized however no right adnexal abnormality is seen. The left ovary measur es 2.3 x 2.2 x 2.2 cm. There is normal vascular flow in the left ovary. There is no free fluid in the pelvis. IMPRESSION: 1. Intrauterine gestational sac without distinct pole identified however cardiac motion i s seen. Gestational age based on mean sac diameter is 7 weeks and 3 day(s) (+/-) 5 day(s). 2. Small subchorionic hematoma. Reviewed, dictated and finalized at location A. ARATION ROOM WORKER IMPRESSION: 1. Intrauterine gestational sac without distinct pole identified however cardiac motion is seen. Gestational age based on mean sac diameter is 7 w eeks and 3 day(s) (+/-) 5 day(s). 2. Small subchorionic hematoma.
[2020-08-07 17:15] VITALS: BP 122/63; PULSE 94; RESP 18; TEMP 36.4; O2SAT 98
[2020-08-07 17:38] LABS: Basophils Absolute Auto 0.1 K/mm3 (0.0-0.1); Basophils Percent Auto 0.4 % (0.2-1.2); Eosinophils Absolute Auto 0.2 K/mm3 (0-0.3); Eosinophils Percent Auto 1.6 % (0-4.4); Hematocrit 34.1 % (37.0-47.0); Immature Granulocyte Absolute 0.06 K/mm3 (0.00-0.031); Immature Granulocyte Percent A 0.4 % (0-0.5); Lymphocytes Absolute Auto 3.23 K/mm3 (0.9-3.2); Lymphocytes Percent Auto 23.3 % (18.3-44.2); Mean Corpuscular HGB Conc 29.3 g/dl (32-36); Mean Corpuscular Volume 68.2 fl (80-100); Mean Platelet Volume 9.4 fl (7.4-10.4); Monocytes Percent Auto 7.3 % (2.6-8.5); Neutrophils Absolute Auto 9.3 K/mm3 (1.3-6.7); Platelet Count Result 397 k/mm3 (150-375); Red Cell Distribution Width 17.9 % (11.5-14.5); White Blood Count 13.9 K/mm3 (4.5-10.0)
--- NOTE | 2020-08-07 20:01 | ED.FEMALEGU ---
HPI - Female Genitourinary General Chief complaint: Vaginal Bleeding Stated complaint: lmp 05/18/20, vaginal bleeding, last night Time Seen by Provider: 08/07/20 19:27 Source: patient Mode of arrival: ambulatory Limitations: no limitations History of Present Illness HPI Narrative: Patient is a 39-year-old female complaining of vaginal bleeding and lower abdominal cramping, states that she has 10 to 12 weeks , started today. Patient states that she has not had any care. Patient denies vaginal discharge, dysuria, fever or chills. Patient has no other complaints. Related Data Allergies Allergy/AdvReac Type Severity Reaction Status Date / Time No Known Allergies Allergy Verified 08/07/20 17:22 Review of Systems Review of Systems: All systems reviewed & are unremarkable except as noted in HPI and below Constitutional: Constitutional: Denies body ache(s), Denies chills, Denies excessive sweating, Denies fatigue, Denies fever(s), Denies headache(s), Denies lethargy, Denies malaise, Denies weakness and Denies weight loss Eyes: Eyes: Denies blurry vision, Denies change in vision and Denies loss of vision ENT: Denies dizziness, Denies ear discharge, Denies headache(s), Denies lip swelling, Denies epistaxis, Denies nasal congestion, Denies neck pain, Denies throat swelling and Denies tongue swelling Cardiovascular: Cardiovascular: Denies chest pain, Denies chest pain at rest, Denies chest pain with activity, Denies diaphoresis, Denies rapid heart rate, Denies edema, Denies irregular heart rhythm, Denies lightheadedness, Denies palpitations, Denies dyspnea and Denies dyspnea on exertion Respiratory: Respiratory: Denies chest congestion, Denies cough, Denies hemoptysis, Denies dyspnea and Denies dyspnea on exertion Gastrointestinal: Gastrointestinal: Denies abdominal pain, Denies melena, Denies hematochezia, Denies diarrhea, Denies nausea, Denies vomiting and Denies hematemesis Musculoskeletal: Musculoskeletal: Denies abnormal gait, Denies deformity, Denies joint swelling, Denies limited range of motion, Denies neck pain and Denies numbness Neurologic: Denies Abnormal speech present, Denies abnormal gait, Denies confusion, Denies dizziness, Denies headache(s), Denies focal weakness, Denies loss of vision, Denies numbness, Denies Other visual disturbances, Denies Sensory deficit (Neuro) and Denies weakness Psychiatric: Psychiatric: Denies confusion, Denies depression, Denies auditory hallucinations, Denies homicidal ideation and Denies suicidal ideation Endocrine: Endocrine: Denies cold intolerance, Denies excessive sweating, Denies fatigue, Denies heat intolerance and Denies palpitations Hematologic/Lymphatic: Hematologic/Lymphatic: Denies easy bleeding and Denies easy bruising Allergic/Immunologic: Allergic/Immunologic: Denies lip swelling, Denies throat swelling and Denies tongue swelling PMFSH Past Medical History Medical History History of miscarriage Medical history unknown Surgical History Surgical History Surgical history unknown Social History Social History Smoking status: Never smoker Alcohol intake: never Substance use: never Gender identity (if verbalized by the patient): Female Spiritual care concerns: No Agree to blood products: No Exam Const: General: cooperative, healthy appearing, comfortable, no acute distress, well developed, alert and awake; No confusion Orientation/consciousness: oriented to person, oriented to place, oriented to time, patient oriented x3 and No confusion Limitations: no limitations HENMT: Head: normal to inspection, normocephalic and atraumatic Ears: hearing grossly normal bilaterally, TM normal on the right and TM normal on the left General nose exam: Normal external nose present, Normal nares p
[2020-08-07] MEDS: SODIUM CHLORIDE 0.9% IV 1,000 ML 999 ML IV CONT (20:48)
[2020-08-07 22:25] LABS: Add Urine Microscopic? NO; Appearance Urine Clear (Clear); Bilirubin Urine Negative (Negative); Blood Urine Negative (Negative); Color Urine Straw (Yellow); Glucose Urine UA Negative (Negative); Ketones Urine Negative (Negative); Leukocyte Esterase Ur Negative LEU/UL (Negative); Nitrate Urine Negative (Negative); Protein Urine Negative (Negative); Specific Grav Ur 1.011 (1.001-1.035); Urobilinogen Urine Negative mg/dL (<2.0)
[2020-08-07] MEDS: ACETAMINOPHEN 325 MG TABLET 650 MG PO (22:28)
[2020-08-07 22:32] VITALS: BP 151/78; PULSE 91; RESP 12; O2SAT 99
[2020-08-07 22:49] VITALS: BP 122/68; PULSE 78; RESP 20; O2SAT 99
[2020-08-08 04:40] LABS: Alanine Aminotransferase 19 U/L (4-35); Albumin Level 3.7 g/dL (3.5-5.1); Alkaline Phosphatase 96 U/L (38-126); Anion Gap 9 mmol/L (8-16); Aspartate Amino Transferase 30 U/L (14-36); Bilirubin,Total 0.2 mg/dL (0.2-1.3); Blood Urea Nitrogen 8 mg/dL (7-17); Calcium 9.2 mg/dL (8.4-10.2); Carbon Dioxide 23 mmol/L (22-30); Chloride 105 mmol/L (98-107); Estimated CRCL calculation 193 ml/min; Estimated Glomerular Filt Rate > 60; Glucose 151 mg/dL (65-105); Potassium 3.5 mmol/L (3.4-5.0); Sodium 137 mmol/L (137-145)
== END 2020-08-07 22:51 | disposition home or self-care (01) ==
PROVIDERS: Emergency Medicine; Emergency Provider Emergency Medicine
DX: O20.0 Threatened abortion (principal); Z3A.01 Less than 8 weeks gestation of pregnancy
CPT/HCPCS: 36415; 76801; 76817; 80053; 81003; 84702; 85025; 85461; 96360; 99284; A9270; J7030

== ENCOUNTER 2021-02-24 09:44 | Outpatient (RCR) | payer OTHER, SELFPAY ==
[2021-02-14 12:09] VITALS: BP 137/82; PULSE 111
[2021-02-17 11:31] VITALS: BP 144/82; PULSE 99
[2021-02-21 10:35] VITALS: BP 141/87; PULSE 90
[2021-02-24 10:28] VITALS: BP 141/87; PULSE 84
== END 2021-03-12 07:52 | disposition home or self-care (01) ==
LOC: ANHOBOP 09:44
PROVIDERS: Visit Provider Student in an Organized Health Care Education/Training Program
DX: O24.419 Gestational diabetes mellitus in pregnancy, unspecified control (principal); Z3A.34 34 weeks gestation of pregnancy; O16.3 Unspecified maternal hypertension, third trimester; O26.893 Other specified pregnancy related conditions, third trimester; R03.0 Elevated blood-pressure reading, without diagnosis of hypertension; Z3A.35 35 weeks gestation of pregnancy; Z3A.36 36 weeks gestation of pregnancy
CPT/HCPCS: 59025

== ENCOUNTER 2021-03-08 05:08 | Inpatient (IN) | payer OTHER, SELFPAY ==
[2021-03-08] VITALS (71 sets, daily range): BP systolic 105–176; BP diastolic 67–118; PULSE 53–89; RESP 12–18; TEMP 36.1–37.1; O2SAT 86–98; BMI 53.3
[2021-03-08] MEDS: LACTATED RINGERS 1,000 ML 125 ML IV CONT ×2 (05:43→07:01)
[2021-03-08 06:15] LABS: Basophils Absolute Auto 0.1 K/mm3 (0.0-0.1); Basophils Percent Auto 0.6 % (0.2-1.2); Eosinophils Absolute Auto 0.1 K/mm3 (0-0.3); Eosinophils Percent Auto 0.9 % (0-4.4); Hematocrit 39.2 % (37.0-47.0); Hemoglobin 12.1 g/dL (12.0-15.0); Immature Granulocyte Absolute 0.03 K/mm3 (0.00-0.031); Immature Granulocyte Percent A 0.3 % (0-0.5); Immature Platelet Fraction Pct 13.3 % (0.9-11.2); Lymphocytes Absolute Auto 2.75 K/mm3 (0.9-3.2); Mean Corpuscular HGB Conc 30.9 g/dl (32-36); Mean Corpuscular Hemoglobin 24.2 pg (26-34); Mean Corpuscular Volume 78.6 fl (80-100); Monocytes Absolute Auto 1.1 K/mm3 (0.1-0.6); Neutrophils Absolute Auto 6.6 K/mm3 (1.3-6.7); Neutrophils Percent Auto 62.2 % (45.5-73.1); Platelet Count Result 291 k/mm3 (150-375); Red Blood Count 4.99 M/mm3 (4.2-5.4); Red Cell Distribution Width 21.2 % (11.5-14.5); White Blood Count 10.6 K/mm3 (4.5-10.0)
--- NOTE | 2021-03-08 06:21 | LDADM ---
This patient, Caterina Cha, was admitted to Labor/Delivery/Recovery 120 on 03/08/21 at 05:08. Plans for labor, pain management and were discussed with patient. Patient/family oriented to hospital policies and general routines including ID bracelet, bed and alarms, visiting hours, pain management, procedures, bathroom and other care routines, personal items, smoking policy, room service/diet and guest tray routines, infant security routines, and visiting hours. Patient/Family are encouraged to report perceived risks to care and to ask questions if they do not understand what they are told or what they should do. See [facility] for further documentation. Pt. is persian speaking only, will use [employer] big data admin for admission and providing care.
--- NOTE | 2021-03-08 06:35 | WPDANESEPPF ---
Anes - Initial Pre Proc Eval Procedure: Operation Date: 03/08/21 07:30 Proposed Procedures p Repeat Section with Bilateral Salpingectomy for Sterilization - Cristobal Martinez MD Date/Time: 03/08/21 06:35 Surgeon: Cristobal Martinez MD Pre Op Diagnosis: Repeat section Patient Data Age: 40 Gender: F Height: Weight: Allergies Allergy/AdvReac Type Severity Reaction Status Date / Time No Known Allergies Allergy Verified 08/07/20 17:22 Home Medications Medication Instructions Recorded Confirmed Type ferrous sulfate 324 mg PO BIDWM #30 tablet 07/10/19 Rx vit-iron fum-folic ac 1 tablet PO DAILY #90 tablet 08/07/20 Rx Humulin N NPH U-100 Insulin See Rx Instructions .ROUTE .COMPLEX 03/08/21 03/08/21 History insulin lispro [Humalog U-100 See Rx Instructions .ROUTE .COMPLEX 03/08/21 03/08/21 History Insulin] Laboratory Tests 03/08/21 03/08/21 05:45 05:45 WBC 10.6 K/mm3 H K/mm3 (4.5-10.0) RBC 4.99 M/mm3 M/mm3 (4.2-5.4) Hgb 12.1 g/dL g/dL (12.0-15.0) Hct 39.2 % % (37.0-47.0) MCV 78.6 fl L fl (80-100) MCH 24.2 pg L pg (26-34) MCHC 30.9 g/dl L g/dl (32-36) RDW 21.2 % H % (11.5-14.5) Plt Count 291 k/mm3 k/mm3 (150-375) MPV TNP Immature Gran % (Auto) 0.3 % % (0-0.5) Neut % (Auto) 62.2 % % (45.5-73.1) Lymph % (Auto) 26.0 % % (18.3-44.2) [place] % (Auto) 10.0 % H % (2.6-8.5) Eos % (Auto) 0.9 % % (0-4.4) Baso % (Auto) 0.6 % % (0.2-1.2) Lymph # (Auto) 2.75 K/mm3 K/mm3 (0.9-3.2) [place] # (Auto) 1.1 K/mm3 H K/mm3 (0.1-0.6) Eos # (Auto) 0.1 K/mm3 K/mm3 (0-0.3) Baso # (Auto) 0.1 K/mm3 K/mm3 (0.0-0.1) Abs Immat Gran (auto) 0.03 K/mm3 K/mm3 (0.00-0.031) Absolute Neuts (auto) 6.6 K/mm3 K/mm3 (1.3-6.7) Absolute Nucleated RBC 0.0 K/mm3 K/mm3 (0.0-0.012) Nucleated RBC % 0.0 % % (0.0-0.2) % Immature Plt Fraction 13.3 % H % (0.9-11.2) RPR Pending Patient hx anesthesia problems: none Family hx anesthesia problems: none Results Review: All pre-operative results and documents have been reviewed as part of the pre-operative evaluation. 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 Medical history unknown Morbid obesity Surgical History Surgical History (Updated 03/08/21 @ 06:36 by Filipe Rice MD) History of section Surgical history unknown Social History Social History Smoking status: Never smoker Alcohol intake: never Substance use: never Gender identity (if verbalized by the patient): Female Spiritual care concerns: No Agree to blood products: No Anes - Eval Final PreProcedure Day of Procedure 03/08/21 06:35 Patient weight: morbidly obese Heart: regular rate and rhythm Lungs: clear to auscultation Airway: Mallampati scale class II Neurological: alert and oriented Last oral intake: >/= 8 hours ASA classification: III Emergent: no Anesthetic plan: proceed Anesthesia type and monitoring: regional spinal and standard monitoring Results Review: All pre-operative results and documents have been reviewed as part of the pre-operative evaluation. Informed Consent: The patient's anesthetic plan and its attendant risks and benefits were discussed with the patient/family/POA. Questions were solicited and answers provided to the satisfaction of the patient/family/POA.
[2021-03-08 06:40] LABS: Glucose Point of Care 101 mg/dl (65-105)
--- NOTE | 2021-03-08 07:00 | PM.IMHP ---
H&P: HPI History of Present Illness Date/Time: 03/08/21 07:00 Chief Complaint: intrauterine at term prior x3 gestational HTN gestational DM Narrative: 40 yo at 37w5d who presents for repeat in the setting of worsening gestational HTN and gestational DM. She denies any regular ctx. She denies any vaignal bleeding or LOF. Review of Systems Cardiovascular: Cardiovascular: Denies chest pain, Denies leg edema, Denies palpitations, Denies dyspnea and Denies dyspnea on exertion Respiratory: Respiratory: Denies cough, Denies dyspnea and Denies dyspnea on exertion Gastrointestinal: Gastrointestinal: Denies abdominal pain, Denies constipation, Denies diarrhea, Denies nausea and Denies vomiting Genitourinary: Genitourinary: Denies hematuria, Denies urinary frequency, Denies dysuria, Denies pelvic pain, Denies urinary incontinence and Denies vaginal discharge Neurologic: Reports system reviewed and no additional complaints, except as documented Psychiatric: Psychiatric: Reports no additional psychiatric complaints Endocrine: Endocrine: Denies palpitations PMFSH Past Medical History Medical History (Updated 03/08/21 @ 07:02 by Cristobal Martinez MD) 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 Medical history unknown Morbid obesity Surgical History Surgical History (Updated 03/08/21 @ 07:02 by Cristobal Martinez MD) History of section Surgical history unknown Social History Social History Smoking status: Never smoker Alcohol intake: never Substance use: never Gender identity (if verbalized by the patient): Female Spiritual care concerns: No Agree to blood products: No Meds Home Medications and Allergies Home Medications Medication Instructions Recorded Confirmed Type ferrous sulfate 324 mg PO BIDWM #30 tablet 07/10/19 Rx vit-iron fum-folic ac 1 tablet PO DAILY #90 tablet 08/07/20 Rx Humulin N NPH U-100 Insulin See Rx Instructions .ROUTE .COMPLEX 03/08/21 03/08/21 History insulin lispro [Humalog U-100 See Rx Instructions .ROUTE .COMPLEX 03/08/21 03/08/21 History Insulin] Allergies Allergy/AdvReac Type Severity Reaction Status Date / Time No Known Allergies Allergy Verified 08/07/20 17:22 Vital Signs Vital Signs - 24 hr 03/08/21 06:50 Pulse Rate 78 Blood Pressure 169/107 H Exam Const: General: no acute distress Eyes: EOM: EOMs intact bilaterally Neck: Neck: supple Thyroid: thyroid normal Chest: Breast/axilla inspection: normal inspection of the breasts Breast/axilla palpation: normal palpation of the breasts, normal palpation of the axillae and no axillary lymphadenopathy Resp: Effort & Inspection: normal respiratory effort Auscultation: clear to auscultation bilaterally Cardio: Rate: regular rate Rhythm: regular rhythm GI: Inspection: non-distended, obesity and other (Gravid) GI Palp: Yes Soft to palpation, No Tenderness to palpation present (GI) and No Guarding due to palpation present (GI) Auscultation: normal bowel sounds : General: No bladder normal to palpation External Female Exam: normal external appearance Speculum Exam - Vagina: normal vaginal discharge and No vaginal bleeding Speculum Exam - Cervix: nontender Bimanual exam- vagina & uterus: No bladder normal to palpation and No Cervical tenderness present OB/external & speculum: No vaginal bleeding Skin: General skin exam: normal color and no rashes or lesions noted Neuro: Cognition (Neuro): normal cognition Speech: normal speech Extrem: General: normal to inspection and no edema Psych: Mental Status: mental status grossly normal Affect: normal affect H&P: Results Labs Labs: Short CBC 03/08/21 Range/Units 05:45 WBC 10.6 H (4.5-10.0) K/mm3 Hgb 12.1 (12.0-15.0) g/dL Hct 39.2 (37.0-47.0) % Plt Count 291 (150-375) k/mm3 Assessment and Plan Assessment and
--- NOTE | 2021-03-08 07:03 | WPDHPUPDATE1 ---
History and Physical Update Update Date/Time: 03/08/21 07:03 History and Physical has been reviewed, including an updated exam of the patient. There are NO changes in the patient's condition. Risks, benefits, and alternatives have been discussed and questions answered. Patient agrees to proceed with procedure.
[2021-03-08 07:20] LABS: Alanine Aminotransferase 14 U/L (4-35); Albumin Level 3.3 g/dL (3.5-5.1); Alkaline Phosphatase 117 U/L (38-126); Anion Gap 5 mmol/L (8-16); Aspartate Amino Transferase 22 U/L (14-36); Bilirubin,Total 0.2 mg/dL (0.2-1.3); Blood Urea Nitrogen 11 mg/dL (7-17); Carbon Dioxide 27 mmol/L (22-30); Chloride 105 mmol/L (98-107); Estimated CRCL calculation 179 ml/min; Estimated Glomerular Filt Rate > 60; Glucose 94 mg/dL (65-110); Potassium 4.7 mmol/L (3.4-5.0); Sodium 137 mmol/L (137-145); Uric Acid 4.8 mg/dL (2.5-7.5)
[2021-03-08] MEDS: ceFAZolin 3 GM/D5W 100 ML 100 ML IVPB (07:21)
--- NOTE | 2021-03-08 08:54 | W.PM.PROC2 ---
Procedure Note - Detailed Date of Procedure 03/08/21 Pre-op Diagnosis Repeat section gestational diabetes gestational HTN Post-op Diagnosis same Procedure Performed low transverse section Surgeon Cristobal Martinez MD Anesthesia spinal and epidural Description of Procedure The patient was taken to the operating room. A combined spinal epidural anesthesic was administered and found to be adequate at a t-10 level. The patient was placed in a supine position with a slight left lateral tilt. A au catheter was placed with return of clear urine. A Bovie grounding pad was placed. Surgical prep was performed and surgical drapes were placed. A surgical time out was performed. A MZL [employer] retraction aid was used to help raise the pannus. A Pfannenstiel skin incision was then made with the scalpel and carried through to the underlying layer of fascia. The fascia was then incised in the midline and the incision was extended laterally with the Gunderson scissors. The superior aspect of the fascia was then grasped with the Simeon clamps, elevated, and the underlying rectus muscles dissected off bluntly and sharply. Attention was then turned to the inferior aspect of this incision which, in a similar fashion, was grasped, tented up with the Simeon clamps, and the rectus muscles dissected off both bluntly and sharply. The rectus muscles were then in the midline. The peritoneum was adherent to the rectus muscles and was entered inadvertently with separation of the rectus muscles. Omental adhesions were also noted to the anterior abdominal wall. These adhesions were taken down with Bovie cautery. The peritoneal incision was then extended superiorly and inferiorly with good visualization of the bladder. An jose manuel retractor was then placed intraperitoneally to help with visualization and retraction of tissue. The vesico-uterine serosa was identified and dissected to create a bladder flap. The bladder blade was reinserted. The uterus was inspected for rotation. A low-transverse uterine incision was made sharply with the scalpel and entry was made into the uterine cavity. An amniotomy was made and copious amounts of clear fluid were noted on return. The uterine incision was extended laterally bluntly. The bladder blade was removed and the fetus was delivered atraumatically. The nose and mouth were suctioned with a bulb syringe. The umbilical cord was clamped twice and cut. The was handed off to the waiting staff. At the time of the delivery, the had good color, tone and grimace. The cried with minimal stimulation. A second segment of umbilical cord was clamped and cut for cord blood gasses. Cord blood was collected for determination of the blood type and for direct Miller. The placenta was delivered spontaneously without difficulty. The placenta appeared grossly normal and complete. The uterus was kept in situ and cleared of all clots and debris. The uterine incision was repaired using 0-monocryl suture in a running fashion. A second layer of 0 Monocryl suture was used in an imbricating fashion to obtain excellent hemostasis and uterine strength. The uterine closure was inspected for hemostasis. The posterior aspect of the uterus and the broad ligaments were inspected and the posterior cul-de-sac cleared of fluid and blood clots. Attention was then turned to the fallopian tubes for the sterilization portion. The left fallopian tube was identified and followed out to the level of the fimbrae. The tube was grasped and elevated with a [place]. An avascular window was identified in the mesosalpinx and incised withe bovie cautery. The fallopian tube and mesosalpinx were then suture ligated with 0-chromic. The fallopian tube was then transected at the mid-isthmus portion to the fimbrae. Similar procedure was repeated on the right fallopian tube. All surgical site were examined for hemostasis. The uterine closure was again inspected and found to
[2021-03-08] MEDS: OXYTOCIN 30 UNITS/NS 500 ML 30 UNITS/500 ML BAG 125 UNITS IV CONT (09:01)
[2021-03-08] MEDS: fentaNYL CITRATE INJ (*CRX) 100 MCG/2 ML VIAL 25 MCG IV PUSH ×3 (09:39→11:06)
[2021-03-08] MEDS: LABETALOL HCL 100 MG TABLET 200 MG PO (11:06)
--- NOTE | 2021-03-08 11:20 | OBPPTRN ---
Patient transferred to post room #276 via stretcher. Support person present. Oriented to unit, room, information board, rooming in, admission packet and security measures. Patient verbalizes understanding.
--- NOTE | 2021-03-08 12:30 | PC.NURSE ---
upon arrival and assessment of kelly dressing, the light on the battery pack was flashing. The troubleshooting light meant that one of the edges of the dressing was not firmly sealed. After inspection, the dressing looked to be on properly and sealed but I could not get the light to go off. I called the data entry specialist nurse to come look at the dressing. She agreed that the seal was not broken and that the dressing looked sealed and she could not get the light to go off the battery pack either. I called Dr. Martinez he came and looked and agreed that the dressing was sealed properly and after testing the battery pack, he said that he thought the battery pack was bad, he went and got a new kit and tried a new battery pack and it worked with no lights flashing for troubleshooting.
[2021-03-08] MEDS: KETOROLAC 30 MG/ML VIAL (*BKC) IV PUSH (12:46)
[2021-03-08] MEDS: DEXTROSE 5%/0.45% SOD CHL 1,000 ML 125 ML IV CONT (13:42)
[2021-03-08] MEDS: IBUPROFEN 600 MG TABLET PO (20:11)
[2021-03-08] MEDS: HYDROcodone/acetaminophen (*CRX) 5-325 MG TABLET 1 TAB PO (20:11)
[2021-03-09] VITALS (7 sets, daily range): BP systolic 97–149; BP diastolic 52–89; PULSE 73–106; RESP 16–20; TEMP 36.8–37.7; O2SAT 93–97
[2021-03-09] MEDS: IBUPROFEN 600 MG TABLET PO ×3 (04:48→19:20)
[2021-03-09] MEDS: HYDROcodone/acetaminophen (*CRX) 5-325 MG TABLET 1 TAB PO (04:48)
[2021-03-09 05:32] LABS: Basophils Absolute Auto 0.1 K/mm3 (0.0-0.1); Basophils Percent Auto 0.4 % (0.2-1.2); Eosinophils Absolute Auto 0.2 K/mm3 (0-0.3); Eosinophils Percent Auto 1.7 % (0-4.4); Hematocrit 32.9 % (37.0-47.0); Hemoglobin 10.1 g/dL (12.0-15.0); Immature Granulocyte Absolute 0.06 K/mm3 (0.00-0.031); Immature Granulocyte Percent A 0.5 % (0-0.5); Immature Platelet Fraction Pct 10.7 % (0.9-11.2); Lymphocytes Absolute Auto 1.93 K/mm3 (0.9-3.2); Lymphocytes Percent Auto 16.8 % (18.3-44.2); Mean Corpuscular HGB Conc 30.7 g/dl (32-36); Mean Corpuscular Hemoglobin 24.4 pg (26-34); Mean Corpuscular Volume 79.5 fl (80-100); Mean Platelet Volume 11.1 fl (7.4-10.4); Monocytes Absolute Auto 1.2 K/mm3 (0.1-0.6); Monocytes Percent Auto 10.2 % (2.6-8.5); Neutrophils Absolute Auto 8.1 K/mm3 (1.3-6.7); Neutrophils Percent Auto 70.4 % (45.5-73.1); Platelet Count Result 244 k/mm3 (150-375); Red Blood Count 4.14 M/mm3 (4.2-5.4); Red Cell Distribution Width 21.1 % (11.5-14.5); White Blood Count 11.5 K/mm3 (4.5-10.0)
--- NOTE | 2021-03-09 08:51 | WPDANLDPN2 ---
Anes-Prog Note L&D Date/Time: 03/09/21 08:51 Comfortable throughout: section Neuraxial method: spinal Epidural/Spinal procedure site: clean & non-tender Neuro status: Neuro function grossly intact. Cardiovascular status: normal Respiratory status: normal Airway patency: baseline Mental status: baseline Post-Op hydration status: normal Vital Signs: Last Vital Signs Temp 36.9 C 03/09/21 04:00 Pulse 96 03/09/21 04:00 Resp 16 03/09/21 04:00 BP 134/77 03/09/21 04:00 Pulse Ox 95 03/09/21 04:00 Pain score (VAS): 06/18 I/O: Intake & Output 03/08/21 03/09/21 03/09/21 23:59 07:59 15:59 Intake Total 1200 800 Output Total 450 2600 Balance 750 -1800 Post-procedural complaints: none Patient feedback: Patient satisfied with anesthetic care.
--- NOTE | 2021-03-09 08:52 | WPDANLDNPN2 ---
Anes-Prog Note L&D-Neuraxial Date/Time: 03/09/21 08:52 Neuraxial medications: intrathecal PF morphine Opiod-related complaints: none Patient feedback: Patient satisfied with post-operative pain management.
[2021-03-09] MEDS: MULTIVIT/MIN/PREN/FOL AC/IRON TABLET 1 TAB PO (09:25)
[2021-03-09] MEDS: HYDROcodone/acetaminophen (*CRX) 10-325 MG TABLET 1 TAB PO ×5 (09:25→22:31)
[2021-03-09] MEDS: DOCUSATE SODIUM 100 MG CAPSULE PO ×2 (09:25→16:07)
--- NOTE | 2021-03-09 09:39 | PM.OBPNVD ---
OB - PN: Subj Subjective Date/time seen: 03/09/21 09:39 Patient comments: no complaints and pain well controlled baby status: doing well and nursing well OB - PN: Obj Data Labs CBC & Chem 7: 03/09/21 04:47 03/08/21 07:03 Labs: Laboratory Results - last 24 hr 03/09/21 04:47 WBC 11.5 H RBC 4.14 L Hgb 10.1 L Hct 32.9 L MCV 79.5 L MCH 24.4 L MCHC 30.7 L RDW 21.1 H Plt Count 244 MPV 11.1 H Immature Gran % (Auto) 0.5 Neut % (Auto) 70.4 Lymph % (Auto) 16.8 L [place] % (Auto) 10.2 H Eos % (Auto) 1.7 Baso % (Auto) 0.4 Lymph # (Auto) 1.93 [place] # (Auto) 1.2 H Eos # (Auto) 0.2 Baso # (Auto) 0.1 Abs Immat Gran (auto) 0.06 H Absolute Neuts (auto) 8.1 H Absolute Nucleated RBC 0.0 Nucleated RBC % 0.0 % Immature Plt Fraction 10.7 OB - PN A/P Plan day: 1 Plan: routine care Time Spent With Patient Time: Total time spent is greater than 50% in coordination of care (as documented) at patient's floor/unit and/or counseling patient: Time with patient: less than 15 minutes Review of Systems Review of Systems: All systems reviewed & are unremarkable except as noted in HPI and below Exam Const: General: no acute distress Eyes: General: appearance normal, both eyes and all related structures Neck: Neck: supple and no JVD Thyroid: thyroid normal Resp: Effort & Inspection: normal respiratory effort Auscultation: clear to auscultation bilaterally Cardio: Rate: regular rate Rhythm: regular rhythm GI: Inspection: non-distended GI Palp: Yes Soft to palpation, No Tenderness to palpation present (GI) and No Guarding due to palpation present (GI) Auscultation: normal bowel sounds : General: Yes bladder normal to palpation External Female Exam: normal external appearance Speculum Exam - Vagina: normal vaginal discharge and No vaginal bleeding Speculum Exam - Cervix: nontender Bimanual exam- vagina & uterus: bladder normal to palpation and No Cervical tenderness present OB/external & speculum: No vaginal bleeding Skin: General skin exam: no rashes or lesions noted Extrem: General: normal to inspection and no edema Psych: Mental Status: mental status grossly normal Affect: normal affect
[2021-03-09 11:03] LABS: Rapid Plasma Reagin Non-Reactive (NonReactive)
--- NOTE | 2021-03-09 14:20 | PC.NURSE ---
[employer] line used to education patient about and to see if she has any questions. Patient denies questions and states she has put the infant to breast once and latched and ate. Mother desires to continue to put to breast and also do formula bottles. Educated mom on supply and demand of and that she needs to get 8-12 feedings per 24 hours. Spoke to mom about getting a big open mouth latch to avoid pain. Instructed mom to call doctor if is not making enough wet diapers or dark colored stool after day 5. Instructed mother to call out for RN assistance if she is unable to latch infant for feeding or she has discomfort with nursing. Mother given the line phone number and encouraged to have someone call for her if she needs assistance once home. Mother voiced understanding of information shared.
[2021-03-09] MEDS: SIMETHICONE 80 MG TAB.CHEW PO (21:20)
[2021-03-10] MEDS: IBUPROFEN 600 MG TABLET PO ×3 (01:35→20:42)
[2021-03-10] MEDS: HYDROcodone/acetaminophen (*CRX) 10-325 MG TABLET 1 TAB PO ×6 (01:35→23:46)
[2021-03-10] MEDS: SIMETHICONE 80 MG TAB.CHEW PO ×6 (01:35→23:46)
[2021-03-10 04:00] VITALS: BP 143/86; PULSE 104
--- NOTE | 2021-03-10 07:23 | PM.DS ---
DS: Admitting Diagnosis Discharge Date 03/10/2021 Admitting Diagnosis term . Previous section x3. Mild gestational hypertension at term DS: Summary Hospital Course Hospital Course: the patient was admitted for repeat section secondary to term and mildly elevated blood pressures. Procedure was unremarkable please see the operative report for full details. Postoperatively her blood pressure remained normal she did receive 1 dose of labetalol but her blood pressures were stable thereafter. She was up, voiding without difficulty, ambulating, generally without complaints Time Spent with Patient Time attestation: Total time spent providing and/or coordinating discharge services: Exam Const: General: no acute distress Eyes: General: appearance normal, both eyes and all related structures Neck: Neck: supple and no JVD Thyroid: thyroid normal Resp: Effort & Inspection: normal respiratory effort Auscultation: clear to auscultation bilaterally Cardio: Rate: regular rate Rhythm: regular rhythm GI: Inspection: non-distended GI Palp: Yes Soft to palpation, No Tenderness to palpation present (GI) and No Guarding due to palpation present (GI) Auscultation: normal bowel sounds : General: Yes bladder normal to palpation External Female Exam: normal external appearance Speculum Exam - Vagina: normal vaginal discharge and No vaginal bleeding Speculum Exam - Cervix: nontender Bimanual exam- vagina & uterus: bladder normal to palpation and No Cervical tenderness present OB/external & speculum: No vaginal bleeding Skin: General skin exam: no rashes or lesions noted Extrem: General: normal to inspection and no edema Psych: Mental Status: mental status grossly normal Affect: normal affect DS: Data Data Completed and Pending Pending studies at discharge: Pending at discharge 03/08/21 07:51 Surgical [PTH] Routine Surgical [PTH] Routine Labs on day of discharge: Labs from last 24 hours 03/08/21 05:45 RPR Non-reactive Discharge Plan Discharge Attending physician on discharge: Cristobal Martinez Discharging Clinician: Filipe Madrigal Patient Disposition: Home, Self-Care Activity: may shower, no straining and pelvic rest Diet: heart healthy Wound Care Instructions: follow printed instructions Patient Instructions: Antibiotic Form Stand Alone Forms: General Discharge Information Follow-up/Referrals: Cristobal Martinez MD [Physician] - Discharge Medications: Continued ferrous sulfate 325 mg (65 mg iron) Tablet 324 mg PO BIDWM Qty: 30 RF: 0 vit-iron fum-folic ac 28 mg iron- 800 mcg tablet 1 tablet PO DAILY Qty: 90 RF: 0 insulin lispro [Humalog U-100 Insulin] 100 unit/mL solution See Rx Instructions .ROUTE .COMPLEX RF: 0 Humulin N NPH U-100 Insulin See Rx Instructions .ROUTE .COMPLEX RF: 0 Date of admission: 03/08/21 05:08 Primary Care Provider: PHYSICIAN NOT ON STAFF,NONSTAFF Admitting Provider: Cristobal Martinez Attending physician on admission: Cristobal Martinez Condition: Stable
--- NOTE | 2021-03-10 07:25 | PM.OBPNVD ---
OB - PN: Subj Subjective Date/time seen: 03/10/21 07:25 Patient comments: no complaints and pain well controlled baby status: doing well OB - PN: Obj Data Labs CBC & Chem 7: 03/09/21 04:47 03/08/21 07:03 Labs: Laboratory Results - last 24 hr 03/08/21 05:45 RPR Non-reactive OB - PN A/P Plan day: 2 Plan: routine care, discharge home and follow up 6 weeks ( 1 week) Time Spent With Patient Time: Total time spent is greater than 50% in coordination of care (as documented) at patient's floor/unit and/or counseling patient: Time with patient: less than 15 minutes Review of Systems Review of Systems: All systems reviewed & are unremarkable except as noted in HPI and below Exam Const: General: no acute distress Eyes: General: appearance normal, both eyes and all related structures Neck: Neck: supple and no JVD Thyroid: thyroid normal Resp: Effort & Inspection: normal respiratory effort Auscultation: clear to auscultation bilaterally Cardio: Rate: regular rate Rhythm: regular rhythm GI: Inspection: non-distended GI Palp: Yes Soft to palpation, No Tenderness to palpation present (GI) and No Guarding due to palpation present (GI) Auscultation: normal bowel sounds : General: Yes bladder normal to palpation External Female Exam: normal external appearance Speculum Exam - Vagina: normal vaginal discharge and No vaginal bleeding Speculum Exam - Cervix: nontender Bimanual exam- vagina & uterus: bladder normal to palpation and No Cervical tenderness present OB/external & speculum: No vaginal bleeding Skin: General skin exam: no rashes or lesions noted Extrem: General: normal to inspection and no edema Psych: Mental Status: mental status grossly normal Affect: normal affect
--- NOTE | 2021-03-10 08:30 | PC.NURSE ---
PT introductions made and plan of care discussed per post op c section, pain ,management, bottle feeding, daily care activities, pending discharge to home and under phototherapy. Mom and dad both have minimal [place] understanding and learning barriers identified. Both recipients of instructions and care via language line and dorys on cellphone. Will use language line and or phone to teach instructions and care via one to one discussion, mom baby care guide and any demonstrations this shift. PT and spouse both verbalized understanding of such care.
[2021-03-10 10:00] VITALS: BP 141/90; PULSE 101; RESP 18; RESP 20; TEMP 36.8; O2SAT 98
[2021-03-10] MEDS: DOCUSATE SODIUM 100 MG CAPSULE PO ×2 (10:00→17:47)
[2021-03-10] MEDS: MULTIVIT/MIN/PREN/FOL AC/IRON TABLET 1 TAB PO (10:00)
[2021-03-10 13:00] VITALS: BP 154/74; PULSE 103; RESP 18; TEMP 36.7; O2SAT 98
[2021-03-10 17:30] VITALS: BP 148/88; PULSE 102; RESP 18; TEMP 36.7; O2SAT 95
[2021-03-10 20:00] VITALS: BP 154/78; PULSE 100; RESP 16; TEMP 37.1; O2SAT 98
[2021-03-10 23:50] VITALS: BP 149/88; PULSE 95
[2021-03-11] MEDS: IBUPROFEN 600 MG TABLET PO ×2 (02:57→12:36)
[2021-03-11] MEDS: HYDROcodone/acetaminophen (*CRX) 10-325 MG TABLET 1 TAB PO ×3 (02:57→12:37)
[2021-03-11] MEDS: SIMETHICONE 80 MG TAB.CHEW PO ×3 (02:57→12:37)
[2021-03-11 03:00] VITALS: BP 145/88; PULSE 97
--- NOTE | 2021-03-11 08:00 | PC.NURSE ---
PT introductions made and plan of care discussed per post op c section, pain ,management, bottle feeding, daily care activities, pending discharge to home. Mom and dad both have minimal Italian understanding and learning barriers identified. Both recipients of instructions and care via language line and dorys on cellphone. Will use language line and or phone to teach instructions and care via one to one discussion, mom baby care guide and any demonstrations this shift. PT and spouse both verbalized understanding of such care.
[2021-03-11 11:30] VITALS: BP 144/88; PULSE 95; RESP 18; TEMP 36.8; O2SAT 97
[2021-03-11] MEDS: DOCUSATE SODIUM 100 MG CAPSULE PO (12:37)
[2021-03-11] MEDS: MULTIVIT/MIN/PREN/FOL AC/IRON TABLET 1 TAB PO (12:47)
--- NOTE | 2021-03-11 14:00 | PC.NURSE ---
PT received discharge instructions per luis line. Logged in 3 separate times with 3 different interpreters. Each separate communication was interrupted requiring a new log in. The education. instruction was good while it lasted approximately 10 min but was difficult to maintain consistent level of understanding due to the interruptions. Also used phone translation dorys to complete the discharge teaching. PT and spouse both verbalized understanding of such care.
--- NOTE | 2021-03-11 14:52 | PC.NURSE ---
PT discharged to home via wheelchair to waiting car. Accompanied by spouse and infant and taken to waiting car. Follow up appts confirmed
[2021-03-14 11:30] VITALS: BP 146/90; PULSE 86; RESP 20; TEMP 37.2; O2SAT 100
--- NOTE | 2021-03-23 10:02 | P.PNOB_ITS ---
OB - Triage/Final Diagnosis Visit Information Reason for evaluation: threatened labor Comments/Additional reasons for admission: I have assessed the risk for this patient, Caterina Cha, and determined that she would benefit from observation care. Evaluation Laboratory results: Laboratory Tests 03/08/21 03/08/21 03/08/21 05:45 05:45 05:45 WBC 10.6 H RBC 4.99 Hgb 12.1 Hct 39.2 MCV 78.6 L MCH 24.2 L MCHC 30.9 L RDW 21.2 H Plt Count 291 MPV TNP Immature Gran % (Auto) 0.3 Neut % (Auto) 62.2 Lymph % (Auto) 26.0 [place] % (Auto) 10.0 H Eos % (Auto) 0.9 Baso % (Auto) 0.6 Lymph # (Auto) 2.75 [place] # (Auto) 1.1 H Eos # (Auto) 0.1 Baso # (Auto) 0.1 Abs Immat Gran (auto) 0.03 Absolute Neuts (auto) 6.6 Absolute Nucleated RBC 0.0 Nucleated RBC % 0.0 % Immature Plt Fraction 13.3 H Sodium Potassium Chloride Carbon Dioxide Anion Gap BUN Creatinine Estim Creat Clear Calc Estimated GFR Glucose POC Capillary Glucose Uric Acid Calcium Total Bilirubin AST ALT Alkaline Phosphatase Total Protein Albumin RPR Non-reactive Blood Type O Positive Antibody Screen Negative 03/08/21 03/08/21 03/09/21 06:15 07:03 04:47 WBC 11.5 H RBC 4.14 L Hgb 10.1 L Hct 32.9 L MCV 79.5 L MCH 24.4 L MCHC 30.7 L RDW 21.1 H Plt Count 244 MPV 11.1 H Immature Gran % (Auto) 0.5 Neut % (Auto) 70.4 Lymph % (Auto) 16.8 L [place] % (Auto) 10.2 H Eos % (Auto) 1.7 Baso % (Auto) 0.4 Lymph # (Auto) 1.93 [place] # (Auto) 1.2 H Eos # (Auto) 0.2 Baso # (Auto) 0.1 Abs Immat Gran (auto) 0.06 H Absolute Neuts (auto) 8.1 H Absolute Nucleated RBC 0.0 Nucleated RBC % 0.0 % Immature Plt Fraction 10.7 Sodium 137 Potassium 4.7 Chloride 105 Carbon Dioxide 27 Anion Gap 5 L BUN 11 Creatinine 0.50 L Estim Creat Clear Calc 179 Estimated GFR > 60 Glucose 94 POC Capillary Glucose 101 Uric Acid 4.8 Calcium 9.0 Total Bilirubin 0.2 AST 22 ALT 14 Alkaline Phosphatase 117 Total Protein 7.0 Albumin 3.3 L RPR Blood Type Antibody Screen
== END 2021-03-11 14:52 | disposition home or self-care (01) | DRG 540 ==
LOC: ANHOB2 03-11 10:13 → ANHLDR 03-12 15:38 → ANHOB2 03-12 15:38
PROVIDERS: Admitting Provider Student in an Organized Health Care Education/Training Program; Visit Provider Obstetrics & Gynecology
PROC: 10D00Z1 Extraction of Products of Conception, Low, Open Approach (ICD-10-PCS; CPT 59514; principal; 2021-03-08 07:30)
DX: O34.211 Maternal care for low transverse scar from previous cesarean delivery (principal); Z37.0 Single live birth; Z3A.37 37 weeks gestation of pregnancy; O13.4 Gestational [pregnancy-induced] hypertension without significant proteinuria, complicating childbirth; O24.424 Gestational diabetes mellitus in childbirth, insulin controlled; O99.214 Obesity complicating childbirth; E66.01 Morbid (severe) obesity due to excess calories; Z30.2 Encounter for sterilization
CPT/HCPCS: 36415; 80053; 82948; 84550; 85025; 85055; 86592; 86850; 86900; 86901; 88302; 88307; A9270; J0131; J0690; J1885; J2274; J2590; J3010; J7120

== ENCOUNTER 2025-05-23 18:19 | Emergency (ER) | payer SELFPAY ==
--- NOTE | ~2025-05-23 | XR_ITS ---
XR chest 2V HOSTORY: SOB COMPARISON:[ None] FINDINGS: Frontal and lateral views of the chest were obtained. Large right pleural effusion with right middle lobe and right lower lobe atelectasis. The heart size is normal in size. Pulmonary vasculature is unremarkable. Osseous structures are intact. IMPRESSION: Large right pleural effusion with right middle lobe and right lower lobe atelectasis. [ ] Reviewed, dictated and finalized at location S. [facility] IMPRESSION: Large right pleural effusion with right middle lobe and right lower lobe atelec tasis. [ ]
--- NOTE | ~2025-05-23 | CT_ITS ---
CT diagnostic chest w con HISTORY:lung mass? effusion vs PNA COMPARISON: None. TECHNIQUE: Axial images of the chest were obtained without infusion of intravenous contrast. Dose optimization technique was utilized. FINDINGS: The examination demonstrates irregular enhancing mass within the right middle lobe measures 11.8 x 8.9 x 10.9 cm. There is a nonenhancing component posteriorly that measures 11.6 x 8.2 x 14.3 cm. There is atelectasis of the right middle lobe and right lower lobe. Moderate size right pleural effusion is noted. Cardiac size and mediastinal configuration are normal in appearance. No hilar or mediastinal lymphadenopathy is seen. The thoracic aorta is normal in caliber. Osseous structures are intact. IMPRESSION: Irregular lobulated enhancing mass in the right middle lobe measures 11.8 x 8.9 x 10.9 cm. Nonenhancing component posteriorly measures 11.6 x 8.3 x 14.3 cm. Right middle lobe and right lower lobe atelectasis is noted. Moderate size right pleural effusion. All CT scans at this facility are performed using low dose modulation techniques as appropriate to perform exam including the following: automated exposure control; use of iterative reconstruction technique; adjustment of the mA and/or kV according to patient size (this includes techniques or standardized protocols for targeted exams where dose is matched to indication/reason for exam). Reviewed, dictated and finalized at location S. [facility] IMPRESSION: Irregular lobulated enhancing mass in the right middle lobe measures 11.8 x 8.9 x 10.9 cm. Nonenhancing component posteriorly measures 11.6 x 8.3 x 14.3 cm. Right middle lobe and right lower lobe atelectasis is noted. Moderate size right pleural effusion. All CT scans at this facility are performed using low dose modulation techniqu es as appropriate to perform exam including the following: automated exposure c ontrol; use of iterative reconstruction technique; adjustment of the mA and/or kV according to patient size (this includes techniques or standardized protocol s for targeted exams where dose is matched to indication/reason for exam).
--- NOTE | 2025-05-23 18:20 | ECG_ITS ---
Test Date: 2025-05-23 18:26:36 Measurements Intervals [place] Rate: 93 P: 30 ND: 153 QRS: -8 QRSD: 82 T: 47 QT: 348 QTc: 433 Interpretive Statements SINUS RHYTHM POSSIBLE ANTERIOR MYOCARDIAL INFARCTION , OF INDETERMINATE AGE CONSIDER INFERIOR INFARCT, AGE INDETERMINATE BASELINE ARTIFACT- I, II, III, AVR, AVL ,AVF, V1-V6 ABNORMAL ECG No previous ECG available for comparison Electronically Signed On 05-23-2025 19:55:31 BARMAN by Mina Rock D.O.
[2025-05-23 18:22] VITALS: BP 146/91; PULSE 95; RESP 20; TEMP 36.8; O2SAT 93
--- OUTSIDE RECORDS SUMMARY | 2025-05-23 18:36 | XMS_ITS | Clinical Summary ---
[facility] Organization [facility] Address [address] [place] [address] Care Team Providers Care Order Entry Specialist Name Role Phone Mindy Palafox SKIN CARVER Primary Care Provider Allergies No known active allergies Medications ferrous sulfate 325 mg (65 mg iron) tablet TK 1 T PO BID WITH MEALS 07/10/2019 Active docusate sodium (COLACE) 100 mg capsule Take 1 Capsule (100 mg) by mouth 2 times daily. 08/29/2019 Active acetaminophen (TYLENOL) 325 mg tablet Take 325 mg by mouth every 6 hours as needed. Active HYDROcodone-kerwin taminophen (NORCO) 5-325 mg tabletIndicatio ns:Solitary fibrous tumor Take 1 Tablet by mouth every 4 hours as needed for Pain, Moderate. Max Daily Amount: 6 Tablets 35 Tablet 09/21/2019 Active gabapentin (NEURONTIN) 300 mg capsuleIndicati ons:Solitary fibrous tumor Take 1 Capsule (300 mg) by mouth 3 times daily. 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 Immunizations Immunization Administration Dates Next Due Influenza Seasonal Unspecified Formulation IM Family History Medical History Relation Name Comments Diabetes Mother Heart Disease Mother Relation Name Status Comments Brother 1 Alive Brother 2 Alive Brother 3 Alive Brother 4 Alive Daughter 1 Alive Daughter 2 Alive Daughter 3 Alive Daughter 4 Alive Father Alive Mother Alive Sister 1 Alive Sister 2 Alive Sister 3 Alive Sister 4 Alive Social History Tobacco Use Types Packs/Day Years Used Date Smoking Tobacco: Never Smokeless Tobacco: Never Alcohol Use Standard Drinks/Week Comments Not Currently 0 (1 standard drink = 0.6 oz pur e alcohol) Comments No Sex and Gender Information Value Date Recorded Sex Assigned at Not on file 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 Gender Identity Not on file Sexual Orientation Not on file Last Filed Vital Signs Vital Sign Reading Time Taken Comments Blood Pressure 122/80 11/09/2019 10:55 AM CDT Pulse 90 11/09/2019 10:55 AM CDT Temperature 36.5 C (97.7 F) 08/29/2019 5:22 AM CDT Respiratory Rate 18 11/09/2019 10:55 AM CDT Oxygen Saturation 98% 11/09/2019 10:55 AM CDT Inhaled Oxygen Concentration - - Weight 99.8 kg (220 lb) 11/09/2019 10:55 AM CDT Height 165.1 cm (5' 5) 11/09/2019 10:55 AM CDT Body Mass Index 36.61 11/09/2019 10:55 AM CDT Plan of Treatment Health Maintenance Due Date Last Done Comments DTAP/TDAP/TD VACCINES (1 - Tdap) 2001 HEPATITIS B VACCINES (1 of 3 - 19+ 3-dose series) 10/07 HPV/Cotest (21-29) 10/22/2003 CERVICAL CANCER SCREENING 2012 HPV/Cotest (30-65) 2012 PAP SMEAR 2012 BREAST CANCER SCREENING 2022 INFLUENZA VACCINE (#1) 2025 03/26/2019 HPV VACCINES (No Doses Required) Completed Medical Devices Implanted Type Area Meat [employer] Seafood Clerk Device Identifier Shelf Expiration Date Model / Serial / Lot Clip Ligating [place] Lg Ti [id number] - Csc - [id number] Implanted:Qty: 1 on 08/25/2019 by Vicente Siddiqi MD at [facility] Clip Right: Chest TELEFLEX- WECK CLOSURE SYS 06/14/2023 [id number] / / [id number] Insurance MEDICAID [place] [employer] (INTERNAL) [facility] Plans Advance Directives For more information, please contact: [phone] * Full Code (Latest Code Status on File) Date Activated Date Inactivated Comments 08/25/2019 5:42 AM 08/25/2019 10:58 AM * Full Code Date Activated Date Inactivated Comments 08/16/2019 6:13 AM 08/17/2019 4:40 PM Care Teams Order Entry Specialist Relationship Specialty Start Date End Date Mindy Palafxo NP [facility], [place] [address] PCP - General NURSE PRACTITIONER 07/16/19
--- OUTSIDE RECORDS SUMMARY | 2025-05-23 18:36 | XMS_ITS | Data Portability ---
Author Organization [facility] DANIELITOPhilip Address [address] [place] [address] Care Team Providers Care Senior Tax Accountant Name Role Phone MARIANAMINDY Primary Care Provider Assessment No assessment recorded. Plan of Treatment Reminders Order Date Submit Date Provider Last Modified By Organization Details Last Modified Time Details Appointments None recorded. Lab influenza virus A + B + SARS-CoV-2 (COVID19) Ag panel, rapid IA, upper respirator y specimen 2024 025 ANJEL In-Office Order, Internal Use Only DO Not Attach Compendium DO Not Attach Compendium, Do Not Delete/merge, 17:30:19 rapid strep group A, throat 2024 025 ANJEL In-Office Order, Internal Use Only DO Not Attach Compendium DO Not Attach Compendium, Do Not Delete/merge, [id number] 17:23:03 CBC w/ auto diff 2024 025 ANJEL [facility], [facility], [address], [place], [address], 18:10:33 glucose, fingerstic k, blood 2024 025 luis angel In-Office Order, Internal Use Only DO Not Attach Compendium DO Not Attach Compendium, Do Not Delete/merge, [id number] 13:09:44 HbA1c (hemoglobi n A1c), blood 2024 025 ANJEL [facility], [facility] [address], [address], [place], [address], 5 23:08:02 RPR (rapid plasma reagin), serum 2023 024 ANJEL [facility], [address], [address], [place], [address], 4 09:14:11 HIV 1 + 2, meaningful use set 2023 024 ANJEL [facility], [address], [address], [place], [address], 4 09:14:13 vaginal pathogens panel, LENY+probe, vaginal fluid 2023 024 ANJEL [facility], [address], [address], [place], [address], 4 05:10:50 cytology report, thin prep, smear or scraping, cervical or vaginal 2023 024 ANJEL [facility], [address], [address], [place], [address], 4 14:19:29 vitamin D, 25-hydroxy , total, serum 2023 024 ANJEL [facility], [address], [address], [place], [address], 4 09:14:12 lipid panel, serum 2023 024 ANJEL [facility], [address], [address], [place], [address], 4 11:16:20 HbA1c (hemoglobi n A1c), blood 2023 024 luis angel In-Office Order, Internal Use Only DO Not Attach Compendium DO Not Attach Compendium, Do Not Delete/merge, [id number] 4 15:03:27 glucose, fingerstic k, blood 2023 024 luis angel In-Office Order, Internal Use Only DO Not Attach Compendium DO Not Attach Compendium, Do Not Delete/merge, [id number] 4 15:03:27 albumin/cr eatinine, mass ratio, urine 2023 024 ANJEL [facility], [address], [address], [place], [address], 4 11:16:18 CMP, serum or plasma 2023 024 ANJEL [facility], [address], [address], [place], [address], 4 11:16:21 TSH, ultra-sens itive, serum 2023 024 ANJEL [facility], [address], [address], [place], [address], 4 11:16:22 CBC 2023 024 ANJEL [facility], [address], [address], [place], [address], 4 11:16:24 TSH, ultra-sens itive, serum 2023 024 ANJEL [facility], [address] [facility] [address], [address], [place], [address], 4 12:19:12 CMP, serum or plasma 2023 024 ANJEL [facility], [address], [address], [place], [address], 4 02:08:36 HbA1c (hemoglobi n A1c), blood 2023 024 lusi angel In-Office Order, Internal Use Only DO Not Attach Compendium DO Not Attach Compendium, Do Not Delete/merge, [id number] 4 15:57:04 glucose, fingerstic k, blood 2023 024 luis angel In-Office Order, Internal Use Only DO Not Attach Compendium DO Not Attach Compendium, Do Not Delete/merge, [id number] 4 15:57:[address] referral 2023 024 [facility] You Deleon MD, [address] [facility], [address], [address], 5 12:02:08 diabetic ophthalmol ogy referral 2023 024 [facility], [address] , [place], [address], 5 12:02:08 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 Surgeries None recorded. Imaging MAMMO, screening, bilateral 2023 024 [email or web address] Maximus [facility] (Rad), [address] [place], [address], 5 17:02:23 XR, chest, 2 view 2023 024 john Stroud [facility] ([facility]), [address] [place], [address], 14:21:09 electrocar diogram 2023 024 john [facility] (Cardio Ekg), [address] [place], [address], 14:21:10 Medication Orders oseltamivi r 75 mg capsule 2024 025 [facility], [address] [place] [address], [id number], 5 13:05:29 amoxicilli n 875 mg-potassi um clavulanat e 125 mg tablet 2024 [facility], [address] [place] [address], [id number], 18:08:25 Medrol (Han) 4 mg tablets in a dose pack 2024 025 [facility], [address] [place] [address], [id number], 5 18:08:25 albuterol sulfate HFA 90 mcg/actuat ion aerosol inhaler 2024 025 [facility], [address] [place] [address], [id number], 5 18:08:24 benzonatat e 200 mg capsule 2024 025 [facility], [address] [place] [address], [id number], 5 18:08:25 albuterol sulfate 2.5 mg/3 mL (0.083 %) solution for nebulizati on 2024 025 john Not available 05/27/202 5 17:38:58 atorvastat in 20 mg tablet 2024 025 [facility], [address] [place] [address], [id number], 5 17:03:14 metformin 1,000 mg tablet 2024 025 [facility], [address] [place] [address], [id number], 5 17:03:12 lisinopril 2.5 mg tablet 2024 025 [facility], [address] [place] [address], [id number], 5 17:03:17 chlorthali done 25 mg tablet 2024 025 [facility], [address] [place] [address], [id number], 5 17:03:13 Diflucan 150 mg tablet 2024 025 [facility], [address] [place] [address], [id number], 5 16:22:56 clotrimazo le 1 % vaginal cream 2024 025 [facility], [address] [place] [address], [id number], 5 16:22:57 Calcium with Vitamin D 600 mg-10 mcg (400 unit) tablet 2023 024 [facility], [address] [place] [address], [id number], 4 15:29:52 Vitamin D2 1,250 mcg (50,000 unit) capsule 2023 024 [employer] [facility], [address] [place] [address], [id number], 5 18:24:21 evening primrose oil 1,300 mg capsule 2023 024 [facility], [address] [place] [address], [id number], 4 11:41:45 atorvastat in 20 mg tablet 2023 024 [facility], [address] [place] [address], [id number], 5 18:24:14 metformin 1,000 mg tablet 2023 024 [facility], [address] [place] [address], [id number], 5 13:05:28 lisinopril 2.5 mg tablet 2023 024 [facility], [address] [place] [address], [id number], 5 18:24:14 chlorthali done 25 mg tablet 2023 024 [facility], [address] [place] [address], [id number], 5 18:24:13 Diflucan 150 mg tablet 2023 025 [facility], [address] [place] [address], [id number], 5 16:10:24 clotrimazo le 1 % vaginal cream 2023 024 [facility], [address] [place] [address], [id number], 5 16:15:11 atorvastat in 20 mg tablet 2023 024 [facility], [address] [place] [address], [id number], 4 16:01:57 mupirocin 2 % topical ointment 2023 024 [facility], [address] [place] [address], [id number], 4 16:17:43 cephalexin 500 mg capsule 2023 024 [facility], [address] [place] [address], [id number], 4 16:25:54 metformin 1,000 mg tablet 2023 024 [facility], [address] [place] [address], [id number], 4 17:45:24 lisinopril 2.5 mg tablet 2023 024 [facility], [address] [place] [address], [id number], 4 16:59:53 Diflucan 150 mg tablet 2023 024 [facility], [address] [place] [address], [id number], 5 16:10:24 ammonium lactate 12 % lotion 2023 024 [facility], [address] [place] [address], [id number], 16:25:54 Patient TargetsNo targets recorded. Patient Instructions Encounter Date Encounter Id Patient Instructions Last Modified By Organization Details Last Modified Time 07/01/2023 [id number] Cuando desea cali dobbins de peso: Instrucciones de cuidado - [When You Want to Lose Weight: Care Instructions] yarauz Not available 07/01/2023 15:57:01 aprenda acerca d el peso saludable - [learning about healthy weight] yarauz Not available 07/01/2023 15:57:00 ndice de masa corporal: instrucciones de cuidado - [body mass index: care instructions] yarauz Not available 07/01/2023 15:57:01 Diabetes de tipo 2: Instrucciones de cuidado - [Type 2 Diabetes: Care Instructions] yarauz Not available 07/01/2023 15:57:01 Aprenda sobre el nivel bajo de az car en la vincent (hipoglucemia) en la diabetes - [Learning About Low Blood Sugar (Hypoglycemia) in Diabetes] yarauz Not available 07/01/2023 16:04:24 aprenda sobre el az car maximilian en la vincent - [learning about high blood sugar] yarauz Not available 07/01/2023 16:04:25 piel seca: instrucciones de cuidado - [dry skin: care instructions] yarauz Not available 07/01/2023 16:13:38 Uncontrolled Diabetes Mellitus complications , blindness, kidney failure, amputations etc. Take your diabetes medication daily check blood sugars fasting and post prandial --keep a log--bring to next appointment stop concentrated sugars--follow 1500 meal plan exercise 50-60 minutes daily on most days check your feet for sores, cuts, etc., see eye doctor once a year see dentist every 6 months yarauz Not available 07/01/2023 16:00:52 04/12/2024 [id number] vacuna contra la influenza (gripe): instrucciones de cuidado - [influenza (flu) vaccine: care instructions] yarauz Not available 04/12/2024 15:09:49 Cuando desea baj ar de peso: Instrucciones de cuidado - [When You Want to Lose Weight: Care Instructions] yarauz Not available 04/12/2024 15:03:27 dolor de pecho: instrucciones de cuidado - [chest pain: care instructions] yarauz Not available 04/12/2024 15:09:49 aprenda acerca d el peso saludable - [learning about healthy weight] yarauz Not available 04/12/2024 15:03:27 ndice de masa corporal: instrucciones de cuidado - [body mass index: care instructions] yarauz Not available 04/12/2024 15:03:27 Diabetes de tipo 2: Instrucciones de cuidado - [Type 2 Diabetes: Care Instructions] yarauz Not available 04/12/2024 15:03:27 Aprenda sobre el nivel bajo de az car en la vincent (hipoglucemia) en la diabetes - [Learning About Low Blood Sugar (Hypoglycemia) in Diabetes] yarauz Not available 04/12/2024 15:03:27 aprenda sobre el az car maximilian en la vincent - [learning about high blood sugar] yarauz Not available 04/12/2024 15:03:27 aprenda sobre la presi n arterial maximilian - [learning about high blood pressure] yarauz Not available 04/12/2024 15:03:27 Uncontrolled Diabetes Mellitus complications , blindness, kidney failure, amputations etc. Take your diabetes medication daily check blood sugars fasting and post prandial --keep a log--bring to next appointment stop concentrated sugars--follow 1500 meal plan exercise 50-60 minutes daily on most days check your feet for sores, cuts, etc., see eye doctor once a year see dentist every 6 months yarauz Not available 04/12/2024 14:54:29 05/18/2024 [id number] A healthy lifestyle: care instructions yarauz Not available 05/18/2024 11:32:41 Cuando desea baj ar de peso: Instrucciones de cuidado - [When You Want to Lose Weight: Care Instructions] yarauz Not available 05/18/2024 11:32:41 aprenda acerca d el peso saludable - [learning about healthy weight] yarauz Not available 05/18/2024 11:32:41 ndice de masa corporal: instrucciones de cuidado - [body mass index: care instructions] yarauz Not available 05/18/2024 11:32:41 Aprenda sobre la s pruebas de detecci n del c ncer de seno - [Learning About Breast Cancer Screening] yarauz Not available 05/18/2024 11:32:41 infecci n de las v respiratorias altas (resfriado): instrucciones de cuidado - [upper respiratory infection (cold): care instructions] yarauz Not available 05/18/2024 11:45:14 SBE teaching/handout Calcium in diet plus vitamin D daily exercise monitor diet see dentist every 6 months see behavioral assistant every 1-2 years HIV testing recommendation condoms prn contraceptive options-BTL control new guidelines--pap with Hpv in 3-5 years--pelvic exam every year Mammogram yearly AFTER AGE 40 I have reviewed the chart and agree with the provider's assessment and plan. -Dr Hilario Helms MD [email or web address] Not available 05/18/2024 16:02:50 07/14/2024 [id number] Cuando desea baj ar de peso: Instrucciones de cuidado - [When You Want to Lose Weight: Care Instructions] yarauz Not available 07/14/2024 13:09:45 anemia: instrucciones de cuidado - [anemia: care instructions] yarauz Not available 07/14/2024 13:09:45 dolor de pecho: instrucciones de cuidado - [chest pain: care instructions] yarauz Not available 07/14/2024 13:09:45 aprenda acerca d el peso saludable - [learning about healthy weight] yarauz Not available 07/14/2024 13:09:44 ndice de masa corporal: instrucciones de cuidado - [body mass index: care instructions] yarauz Not available 07/14/2024 13:09:45 Diabetes de tipo 2: Instrucciones de cuidado - [Type 2 Diabetes: Care Instructions] yarauz Not available 07/14/2024 13:09:44 Aprenda sobre el nivel bajo de az car en la vincent (hipoglucemia) en la diabetes - [Learning About Low Blood Sugar (Hypoglycemia) in Diabetes] yarauz Not available 07/14/2024 13:09:44 aprenda sobre el az car maximilian en la vincent - [learning about high blood sugar] yarauz Not available 07/14/2024 13:09:45 aprenda sobre la presi n arterial maximilian - [learning about high blood pressure] yarauz Not available 07/14/2024 13:09:45 Uncontrolled Diabetes Mellitus complications , blindness, kidney failure, amputations etc. Take your diabetes medication daily check blood sugars fasting and post prandial --keep a log--bring to next appointment stop concentrated sugars--follow 1500 meal plan exercise 50-60 minutes daily on most days check your feet for sores, cuts, etc., see eye doctor once a year see dentist every 6 months test result yarauz Not available 07/14/2024 13:07:22 11/02/2024 [id number] usted [place] sido diagnosticada con leonela infeccion viral . No hay antibioticos para tratar infecciones virales. Por favor tome bastante liquidos (Pedialyte, agua, te) cucharaditas de miel para la tos esta shira para chauncey de 12 meses o mas, Tylenol o Ibuprofen para fiebre o dolor. Regrese al cuarto de urgencias si usted nota problemas para respirar, desidratacion (menos de 3 orinadas en 24 horas o mas de 8 horas entre orinadas). LLamenos o vayase al cuarto de urgencias si continua teniedo fiebres por mas de 3 nelson o si los sintomas mas de dos semanas o si esta empeorando. yarauz Not available 11/02/2024 17:35:13 If symptoms do n ot improve or if difficulty breathing to seek immediate reevaluation. 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 Inju ry of great toenail Injury of great toenail Referring Physician: Mindy Palafox, Family Medicine, Encounter Date: 07/01/2023 Diabetic Ophthalmology Refer ral for Uncontrolled type 2 diabetes mellitus Referring Physician: Mindy Palafox Family Medicine, Encounter Date: 07/01/2023 Diabetic Ophthalmology Refer ral for Uncontrolled type 2 diabetes mellitus diabetic eye exam Referring Physician: Mindy Palafox, Family Medicine, Encounter Date: 04/12/2024 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 METAB OLIC PANEL (14) glucose 143 mg/dL 70-99 above high normal Not Available [facility] Department [address] [place] [address], [id number], 07/02/2023 02:08:36 07/01/19 24 07/02/2023 COMP. METAB OLIC PANEL (14) BUN 7 mg/dL 6-24 Not Available [facility] Department [address] [place] [address], [id number], 07/02/2023 02:08:36 07/01/19 24 07/02/2023 COMP. METAB OLIC PANEL (14) creatinine <=0.46 mg/dL 0.76-1 .27 below low normal Not Available [facility] Department [address] [place] [address], [id number], 07/02/2023 02:08:36 07/01/19 24 07/02/2023 COMP. METAB OLIC PANEL (14) eGFR 124 >=60 Units for eGFR value s are mL/mi n/1.7 3 The eGFR Calcu latio n has not been valid ated for patie nts under the age of 18. If test resul ts are displ ayed for a patie nt under the age of 18, disre jovany that value . Not Available [facility] Department [address] [place] [address], [id number], 07/02/2023 02:08:36 07/01/19 24 07/02/2023 COMP. METAB OLIC PANEL (14) BUN/creatini ne ratio 15 9-23 Not Available [facility] Department [address] [place], [address], 07/02/2023 02:08:36 07/01/19 24 07/02/2023 COMP. METAB OLIC PANEL (14) sodium 140 mmol/ L 134-14 4 Not Available [facility] Department [address] [place] [address], [id number], 07/02/2023 02:08:36 07/01/19 24 07/02/2023 COMP. METAB OLIC PANEL (14) potassium 5.2 mmol/ L 3.5-5. 2 Not Available [facility] Department [address] [place] [address], [id number], 07/02/2023 02:08:36 07/01/19 24 07/02/2023 COMP. METAB OLIC PANEL (14) chloride 101 mmol/ L 96-106 Not Available [facility] Department [address] [place] [address], [id number], 07/02/2023 02:08:36 07/01/19 24 07/02/2023 COMP. METAB OLIC PANEL (14) carbon dioxide, total 24 mmol/ L 20-29 Not Available [facility] Department [address] [place] [address], [id number], 07/02/2023 02:08:36 07/01/19 24 07/02/2023 COMP. METAB OLIC PANEL (14) calcium 9.4 mg/dL 8.7-10 .2 Not Available [facility] Department [address] [place] [address], [id number], 07/02/2023 02:08:36 07/01/19 24 07/02/2023 COMP. METAB OLIC PANEL (14) protein, total 7.6 g/dL 6.0-8. 5 Not Available [facility] Department [address] [place] [address], [id number], 07/02/2023 02:08:36 07/01/19 24 07/02/2023 COMP. METAB OLIC PANEL (14) albumin 4.0 g/dL 3.9-4. 9 Not Available [facility] Department [address] [place] [address], [id number], 07/02/2023 02:08:36 07/01/19 24 07/02/2023 COMP. METAB OLIC PANEL (14) globulin, total 3.6 g/dL 1.5-4. 5 Not Available [facility] Department [address] [place] [address], [id number], 07/02/2023 02:08:36 07/01/19 24 07/02/2023 COMP. METAB OLIC PANEL (14) A/G ratio 1.0 1.2-2. 2 below low normal Not Available [facility] Department [address] [place] [address], [id number], 07/02/2023 02:08:36 07/01/19 24 07/02/2023 COMP. METAB OLIC PANEL (14) bilirubin, total 0.2 mg/dL 0.0-1. 2 Not Available [facility] Department [address] [place] [address], [id number], 07/02/2023 02:08:36 07/01/19 24 07/02/2023 COMP. METAB OLIC PANEL (14) alkaline phosphatase 137 IU/L 44-121 above high normal Not Available [facility] Department [address] [place] [address], [id number], 07/02/2023 02:08:36 07/01/19 24 07/02/2023 COMP. METAB OLIC PANEL (14) AST (SGOT) 25 IU/L 0-40 Not Available [facility] Department [address] [place], [address], 07/02/2023 02:08:36 07/01/19 24 07/02/2023 COMP. METAB OLIC PANEL (14) ALT (SGPT) 19 IU/L 0-32 Not Available [facility] Department [address], [place], [address], 07/02/2023 02:08:36 07/01/19 24 07/02/2023 TSH RFX ON ABNOR MAL TO FREE T4 TSH 3.030 uIU/m L 0.450- 4.500 Not Available [facility] ([facility]) [address] [facility], [place], [address], 07/02/2023 12:19:11 07/01/19 24 07/01/2023 HbA1c (hemo globi n A1c), blood HbA1c 9.2 Not Available In-Office Order Internal Use Only DO Not Attach Compendium DO Not Attach Compendium, Do Not Delete/merge, [id number] 07/01/2023 15:30:23 07/01/19 24 07/01/2023 gluco se, finge rstic k, blood Blood Glucose: mg/dl 144 Not Available In-Off ice Order Internal Use Only DO Not Attach Compendium DO Not Attach Compendium, Do Not Delete/merge, [id number] 07/01/2023 15:30:25 04/12/20 24 04/13/2024 ALBUM IN/CR EATIN INE RATIO ,URIN E creatinine, urine 76.5 mg/dL notest ab. Not Available [facility] ([facility]) [address] [facility], [place], [address], 04/13/2024 11:16:18 04/12/20 24 04/13/2024 ALBUM IN/CR EATIN INE RATIO ,URIN E albumin, urine 11.8 ug/mL notest ab. Not Available [facility] ([facility]) [address] [facility], [place], [address], 04/13/2024 11:16:18 04/12/20 24 04/13/2024 ALBUM IN/CR EATIN INE RATIO ,URIN E alb/creat ratio 15 mg/g_ creat 0-29 Cadence l: 0 - 29 Moder ately incre ased: 30 - 300 Sever solange incre ased: >300 Not Available [facility] ([facility]) [address] [place], [address], 04/13/2024 11:16:18 04/12/20 24 04/13/2024 LIPID PANEL cholesterol, total 180 mg/dL 100-19 9 Not Available [facility] ([facility]) [address] [place], [address], 04/13/2024 11:16:20 04/12/20 24 04/13/2024 LIPID PANEL triglyceride s 251 mg/dL 0-149 above high normal Not Available [facility] ([facility]) [address] [place], [address], 04/13/2024 11:16:20 04/12/20 24 04/13/2024 LIPID PANEL HDL cholesterol 37 mg/dL >39 below low normal Not Available [facility] ([facility]) [address] [place], [address], 04/13/2024 11:16:20 04/12/20 24 04/13/2024 LIPID PANEL VLDL cholesterol alexandro 43 mg/dL 5-40 above high normal Not Available [facility] ([facility]) [address] [place], [address], 04/13/2024 11:16:20 04/12/20 24 04/13/2024 LIPID PANEL LDL chol calc (nih) 100 mg/dL 0-99 above high normal Not Available [facility] ([facility]) [address] [place], [address], 04/13/2024 11:16:20 04/12/20 24 04/13/2024 COMP. METAB OLIC PANEL (14) glucose 299 mg/dL 70-99 above high normal Not Available [facility] ([facility]) [address] [place], [address], 04/13/2024 11:16:21 04/12/20 24 04/13/2024 COMP. METAB OLIC PANEL (14) BUN 9 mg/dL 6-24 Not Available [facility] ([facility]) [address] [place], [address], 04/13/2024 11:16:21 04/12/20 24 04/13/2024 COMP. METAB OLIC PANEL (14) creatinine 0.53 mg/dL 0.57-1 .00 below low normal Not Available [facility] ([facility]) [address] [facility], [place], [address], 04/13/2024 11:16:21 04/12/20 24 04/13/2024 COMP. METAB OLIC PANEL (14) eGFR 119 mL/mi n/1.7 3 >59 Not Available [facility] ([facility]) [address] [place], [address], 04/13/2024 11:16:21 04/12/20 24 04/13/2024 COMP. METAB OLIC PANEL (14) BUN/creatini ne ratio 17 9-23 Not Available [facility] ([facility]) [address] [facility], [place], [address], 04/13/2024 11:16:21 04/12/20 24 04/13/2024 COMP. METAB OLIC PANEL (14) sodium 135 mmol/ L 134-14 4 Not Available [facility] ([facility]) [address] [place], [address], 04/13/2024 11:16:21 04/12/20 24 04/13/2024 COMP. METAB OLIC PANEL (14) potassium 4.8 mmol/ L 3.5-5. 2 Not Available [facility] ([facility]) [address] [place], [address], 04/13/2024 11:16:21 04/12/20 24 04/13/2024 COMP. METAB OLIC PANEL (14) chloride 97 mmol/ L 96-106 Not Available [facility] ([facility]) [address], [place], [address], 04/13/2024 11:16:21 04/12/20 24 04/13/2024 COMP. METAB OLIC PANEL (14) carbon dioxide, total 25 mmol/ L 20-29 Not Available [facility] ([facility]) [address], [place] [place], [address], 04/13/2024 11:16:21 04/12/20 24 04/13/2024 COMP. METAB OLIC PANEL (14) calcium 9.0 mg/dL 8.7-10 .2 Not Available [facility] ([facility]) [address], [place], [address], 04/13/2024 11:16:21 04/12/20 24 04/13/2024 COMP. METAB OLIC PANEL (14) protein, total 7.2 g/dL 6.0-8. 5 Not Available [facility] ([facility]) [address] [place], [address], 04/13/2024 11:16:21 04/12/20 24 04/13/2024 COMP. METAB OLIC PANEL (14) albumin 4.0 g/dL 3.9-4. 9 Not Available [facility] ([facility]) [address] [place], [address], 04/13/2024 11:16:21 04/12/20 24 04/13/2024 COMP. METAB OLIC PANEL (14) globulin, total 3.2 g/dL 1.5-4. 5 Not Available [facility] ([facility]) [address] [place], [address], 04/13/2024 11:16:21 04/12/20 24 04/13/2024 COMP. METAB OLIC PANEL (14) bilirubin, total <0.2 mg/dL 0.0-1. 2 Not Available [facility] ([facility]) [address] [facility], [place], [address], 04/13/2024 11:16:21 04/12/20 24 04/13/2024 COMP. METAB OLIC PANEL (14) alkaline phosphatase 151 IU/L 44-121 above high normal Not Available [facility] ([facility]) [address] [facility], [place], [address], 04/13/2024 11:16:21 04/12/20 24 04/13/2024 COMP. METAB OLIC PANEL (14) AST (SGOT) 43 IU/L 0-40 above high normal Not Available [facility] ([facility]) [address] [facility], [place], [address], 04/13/2024 11:16:21 04/12/20 24 04/13/2024 COMP. METAB OLIC PANEL (14) ALT (SGPT) 38 IU/L 0-32 above high normal Not Available [facility] ([facility]) [address] [facility], [place], [address], 04/13/2024 11:16:21 04/12/20 24 04/13/2024 TSH RFX ON ABNOR MAL TO FREE T4 TSH 2.430 uIU/m L 0.450- 4.500 Not Available [facility] ([facility]) [address] [place], [address], 04/13/2024 11:16:22 04/12/20 24 04/13/2024 CBC, PLATE LET, NO DIFFE RENTI AL WBC 10.9 x10e3 /uL 3.4-10 .8 above high normal Not Available [facility] ([facility]) [address] [place], [address], 04/13/2024 11:16:24 04/12/20 24 04/13/2024 CBC, PLATE LET, NO DIFFE RENTI AL RBC 5.37 x10e6 /uL 3.77-5 .28 above high normal Not Available [facility] ([facility]) [address] [facility], [place], [address], 04/13/2024 11:16:24 04/12/20 24 04/13/2024 CBC, PLATE LET, NO DIFFE RENTI AL hemoglobin 9.4 g/dL 11.1-1 5.9 below low normal Not Available [facility] ([facility]) [address] [facility], [place], [address], 04/13/2024 11:16:24 04/12/20 24 04/13/2024 CBC, PLATE LET, NO DIFFE RENTI AL hematocrit 34.1 % 34.0-4 6.6 Not Available [facility] ([facility]) [address] [facility], [place], [address], 04/13/2024 11:16:24 04/12/20 24 04/13/2024 CBC, PLATE LET, NO DIFFE RENTI AL MCV 64 fL 79-97 below low normal Not Available [facility] ([facility]) [address] [place], [address], 04/13/2024 11:16:24 04/12/20 24 04/13/2024 CBC, PLATE LET, NO DIFFE RENTI AL MCH 17.5 pg 26.6-3 3.0 below low normal Not Available [facility] ([facility]) [address] [place], [address], 04/13/2024 11:16:24 04/12/20 24 04/13/2024 CBC, PLATE LET, NO DIFFE RENTI AL MCHC 27.6 g/dL 31.5-3 5.7 below low normal Not Available [facility] ([facility]) [address] [facility], [place], [address], 04/13/2024 11:16:24 04/12/20 24 04/13/2024 CBC, PLATE LET, NO DIFFE RENTI AL RDW 18.7 % 11.7-1 5.4 above high normal Not Available [facility] ([facility]) [address] [facility], [place], [address], 04/13/2024 11:16:24 04/12/20 24 04/13/2024 CBC, PLATE LET, NO DIFFE RENTI AL platelets 568 x10e3 /uL 150-45 0 above high normal Not Available [facility] ([facility]) [address] [facility], [place], [address], 04/13/2024 11:16:24 04/12/20 24 04/12/2024 HbA1c (hemo globi n A1c), blood HbA1c 11.1 Not Available In-Office Order Internal Use Only DO Not Attach Compendium DO Not Attach Compendium, Do Not Delete/merge, [id number] 04/12/2024 14:26:02 04/12/20 24 04/12/2024 gluco se, finge rstic k, blood Blood Glucose: mg/dl 322 Not Available In-Off ice Order Internal Use Only DO Not Attach Compendium DO Not Attach Compendium, Do Not Delete/merge, [id number] 04/12/2024 14:26:03 05/18/20 24 05/19/2024 RPR, RFX QN RPR/C ONFIR M TP RPR NON REACTI VE nonrea ctive Not Available [facility] ([facility]) [address] [facility], [place], [address], 05/19/2024 09:14:10 05/18/20 24 05/19/2024 VITAM IN D, 25-HY DROXY vitamin D, 25-hydroxy 14.6 NG/mL 30.0-1 00.0 below low normal Vitam in D defic iency has been defin ed by the Insti tute of Medic ine and an Endoc rine Socie ty pract ice guide line as a level of serum 25-OH vitam in D less than 20 ng/mL (1,2) . The Endoc rine Socie ty went on to [facility] er defin e vitam in D insuf ficie ncy as a level betwe en 21 and 29 ng/mL (2). 1. IOM (Inst itute of Medic ine). 2010. Dieta ry refer ence intak es for calci um and D. Melchor delgado [place]: [facility] [employer] . 2. Eduardo batres MF, Lashae bo [place], Rossana off-F errmu i [place], et al. Evalu ation , treat ment, and preve ntion of vitam in D defic iency : an Endoc rine Socie ty clini alexandro pract ice guide line. JCEM. 2010; 96(7) :1911 -30. Not Available [facility] ([facility]) [address] [place], [address], 05/19/2024 09:14:12 05/18/20 24 05/19/2024 HIV AB/P2 4 AG WITH REFLE X HIV Ab/P24 Ag screen NON REACTI VE nonrea ctive HIV-1 /HIV- 2 antib odies and HIV-1 p24 antig en were NOT detec isabel. There is no labor atory evide nce of HIV infec tion. HIV Negat nel Not Available [facility] ([facility]) [address] [place], [address], 05/19/2024 09:14:13 05/18/20 24 05/19/2024 NUSWA B VAGIN ITIS PLUS (VG+) atopobium vaginae MODERA TE - 1 score Not Available [facility] ([facility]) [address] [place], [address], 05/20/2024 05:10:49 05/18/20 24 05/19/2024 NUSWA B VAGIN ITIS PLUS (VG+) bvab 2 LOW - 0 score Not Available [facility] ([facility]) [address] [place], [address], 05/20/2024 05:10:49 05/18/20 24 05/19/2024 NUSWA B VAGIN ITIS PLUS (VG+) megasphaera 1 LOW - 0 score Calcu late total score by fatou real the 3 indiv idual bacte rial vagin osis (BV) marke r score s toget her. Total score is inter prete d as follo ws: Total score 0-1: Indic ates the absen ce of BV. Total score 2: Indet ermin ate for BV. Addit ional clini alexandro data shoul d be evalu ated to estab chana a diagn osis. Total score 3-6: Indic ates the prese nce of BV. Not Available [facility] ([facility]) [address] [facility], [place], [address], 05/20/2024 05:10:49 05/18/20 24 05/19/2024 NUSWA B VAGIN ITIS PLUS (VG+) evan albicans, LENY NEGATI VE negati ve Not Available [facility] ([facility]) [address] [place], [address], 05/20/2024 05:10:49 05/18/20 24 05/19/2024 NUSWA B VAGIN ITIS PLUS (VG+) evan glabrata, LENY NEGATI VE negati ve Not Available [facility] ([facility]) [address] [place], [address], 05/20/2024 05:10:49 05/18/20 24 05/20/2024 NUSWA B VAGIN ITIS PLUS (VG+) trich vag by LENY NEGATI VE negati ve Not Available [facility] ([facility]) [address] [place], [address], 05/20/2024 05:10:49 05/18/20 24 05/20/2024 NUSWA B VAGIN ITIS PLUS (VG+) chlamydia trachomatis, LENY NEGATI VE negati ve Not Available [facility] ([facility]) [address] [place], [address], 05/20/2024 05:10:49 05/18/20 24 05/20/2024 NUSWA B VAGIN ITIS PLUS (VG+) neisseria gonorrhoeae, LENY NEGATI VE negati ve Not Available [facility] ([facility]) [address] [facility], [place], [address], 05/20/2024 05:10:49 05/18/20 24 05/19/2024 IGP, APTIM A HPV, RFX 16/18 ,45 HPV aptima NEGATI VE negati ve This nucle ic acid ampli ficat ion test detec ts fourt een high- risk HPV types (16,1 8,31, 33,35 ,39,4 5,51, 52,56 ,58,5 9,66, 68) witho ut diffe renti ation . Not Available [facility] ([facility]) [address] [facility], [place], [address], 05/24/2024 14:19:29 05/18/20 24 05/24/2024 IGP, APTIM A HPV, RFX 16/18 ,45 diagnosis: COMMEN T NEGAT NEL FOR INTRA EPITH ELIAL LESIO N OR JOSEPH MEYER . Not Available [facility] ([facility]) [address] [facility], [place], [address], 05/24/2024 14:19:29 05/18/20 24 05/24/2024 IGP, APTIM A HPV, RFX 16/18 ,45 specimen adequacy: COMMEN T Satis facto ry for evalu ation . Endoc ervic al and/o r squam ous metap lasti c cells (endo cervi alexandro compo nent) are prese nt. Not Available [facility] ([facility]) [address] [facility], [place], [address], 05/24/2024 14:19:29 05/18/20 24 05/24/2024 IGP, APTIM A HPV, RFX 16/18 ,45 clinician provided ICD10: COMMEN T Z01.4 11 E55.9 Not Available [facility] ([facility]) [address] [facility], [place], [address], 05/24/2024 14:19:29 05/18/20 24 05/24/2024 IGP, APTIM A HPV, RFX 16/18 ,45 performed by: CORDELIA Mancuso ams, Cytojany carmichael (ASCP ) Not Available [facility] ([facility]) [address] [place], [address], 05/24/2024 14:19:29 05/18/20 24 05/24/2024 IGP, APTIM A HPV, RFX 16/18 ,45 . . Not Available [facility] ([facility]) [address] [place], [address], 05/24/2024 14:19:29 05/18/20 24 05/24/2024 IGP, APTIM A HPV, RFX 16/18 ,45 note: CORDELIA Carmichael The Pap smear is a scree ewa test desig hermann to aid in the detec tion of carlos ligna nt and malig nant condi tions of the uteri ne cervi x. It is not a diagn ostic proce dure and shoul d not be used as the sole means of detec ting cervi alexandro cance r. Both false -posi tive and false -nega tive repor ts do occur . Not Available [facility] ([facility]) [address] [place], [address], 05/24/2024 14:19:29 05/18/20 24 05/24/2024 IGP, APTIM A HPV, RFX 16/18 ,45 test methodology: CORDELIA Carmichael This liqui d based ThinP rep(R ) pap test was scree hermann with the use of an image guide hawk heaton Not Available [facility] ([facility]) [address] [place], [address], 05/24/2024 14:19:29 05/18/20 24 05/24/2024 IGP, APTIM A HPV, RFX 16/18 ,45 HPV genotype reflex COMMEN T Crite sheila not met, HPV Genot ype not perfo rmed. Not Available [facility] ([facility]) [address] [facility], [place], [address], 05/24/2024 14:19:29 07/14/19 25 07/15/2024 CBC WITH DIFFE RENTI AL/PL ATELE T WBC 10.5 x10e3 /uL 3.4-10 .8 Not Available [facility] [address] [place], [address], 07/15/2024 18:10:33 07/14/19 25 07/15/2024 CBC WITH DIFFE RENTI AL/PL ATELE T RBC 5.79 x10e6 /uL 3.77-5 .28 above high normal Not Available [facility] [address] [place], [address], 07/15/2024 18:10:33 07/14/19 25 07/15/2024 CBC WITH DIFFE RENTI AL/PL ATELE T hemoglobin 11.8 g/dL 11.1-1 5.9 Not Available [facility] [address] [place], [address], 07/15/2024 18:10:33 07/14/19 25 07/15/2024 CBC WITH DIFFE RENTI AL/PL ATELE T hematocrit 41.0 % 34.0-4 6.6 Not Available [facility] [address] [place], [address], 07/15/2024 18:10:33 07/14/19 25 07/15/2024 CBC WITH DIFFE RENTI AL/PL ATELE T MCV 71 fL 79-97 below low normal Not Available [facility] [address] [place], [address], 07/15/2024 18:10:33 07/14/19 25 07/15/2024 CBC WITH DIFFE RENTI AL/PL ATELE T MCH 20.4 pg 26.6-3 3.0 below low normal Not Available [facility] [address] [place], [address], 07/15/2024 18:10:33 07/14/19 25 07/15/2024 CBC WITH DIFFE RENTI AL/PL ATELE T MCHC 28.8 g/dL 31.5-3 5.7 below low normal Not Available [facility] [address] [place], [address], 07/15/2024 18:10:33 07/14/19 25 07/15/2024 CBC WITH DIFFE RENTI AL/PL ATELE T RDW 21.6 % 11.7-1 5.4 above high normal Not Available [facility] [address] [place], [address], 07/15/2024 18:10:33 07/14/19 25 07/15/2024 CBC WITH DIFFE RENTI AL/PL ATELE T platelets 405 x10e3 /uL 150-45 0 Not Available [facility] [address] [place], [address], 07/15/2024 18:10:33 07/14/19 25 07/15/2024 CBC WITH DIFFE RENTI AL/PL ATELE T neutrophils 59 % notest ab. Not Available [facility] [address] [place], [address], 07/15/2024 18:10:33 07/14/19 25 07/15/2024 CBC WITH DIFFE RENTI AL/PL ATELE T lymphs 32 % notest ab. Not Available [facility] [address] [place], [address], 07/15/2024 18:10:33 07/14/19 25 07/15/2024 CBC WITH DIFFE RENTI AL/PL ATELE T monocytes 6 % notest ab. Not Available [facility] [address] [place], [address], 07/15/2024 18:10:33 07/14/19 25 07/15/2024 CBC WITH DIFFE RENTI AL/PL ATELE T eos 2 % notest ab. Not Available [facility] [address] [place], [address], 07/15/2024 18:10:33 07/14/19 25 07/15/2024 CBC WITH DIFFE RENTI AL/PL ATELE T basos 1 % notest ab. Not Available [facility] [address] [place], [address], 07/15/2024 18:10:33 07/14/19 25 07/15/2024 CBC WITH DIFFE RENTI AL/PL ATELE T neutrophils (absolute) 6.2 x10e3 /uL 1.4-7. 0 Not Available [facility] [address] [place], [address], 07/15/2024 18:10:33 07/14/19 25 07/15/2024 CBC WITH DIFFE RENTI AL/PL ATELE T lymphs (absolute) 3.3 x10e3 /uL 0.7-3. 1 above high normal Not Available [facility] [address] [place], [address], 07/15/2024 18:10:33 07/14/19 25 07/15/2024 CBC WITH DIFFE RENTI AL/PL ATELE T monocytes(ab solute) 0.7 x10e3 /uL 0.1-0. 9 Not Available [facility] [address] [place], [address], 07/15/2024 18:10:33 07/14/19 25 07/15/2024 CBC WITH DIFFE RENTI AL/PL ATELE T eos (absolute) 0.2 x10e3 /uL 0.0-0. 4 Not Available [facility] [address] [facility], [place], [address], 07/15/2024 18:10:33 07/14/19 25 07/15/2024 CBC WITH DIFFE RENTI AL/PL ATELE T baso (absolute) 0.1 x10e3 /uL 0.0-0. 2 Not Available [facility] [address] [place], [address], 07/15/2024 18:10:33 07/14/19 25 07/15/2024 CBC WITH DIFFE RENTI AL/PL ATELE T immature granulocytes 0 % notest ab. Not Available [facility] [address] [facility], [place], [address], 07/15/2024 18:10:33 07/14/19 25 07/15/2024 CBC WITH DIFFE RENTI AL/PL ATELE T immature grans (abs) 0.0 x10e3 /uL 0.0-0. 1 Not Available [facility] [address] [place], [address], 07/15/2024 18:10:33 07/14/19 25 07/15/2024 PETRA EN AUTHO RIZAT ION written authorizatio n Cordelia Daivs en Autho rizat ion Recei alberto. Autho rizat ion recei alberto from GUILHERME EDGAR Gonzalez 07-15 Logge d by Corie marrufo Not Available [facility] ([facility]) [address] [facility], [place], [address], 07/16/2024 23:08:01 07/14/19 25 07/16/2024 HEMOG LOBIN A1C hemoglobin A1C 9.3 % 4.8-5. 6 above high normal Predi abete s: 5.7 - 6.4 Diabe ghanshyam: >6.4 Glyce haris contr ol for adult s with diabe ghanshyam: <7.0 Not Available [facility] ([facility]) [address], [place], [address], 07/16/2024 23:08:02 07/14/19 25 07/14/2024 gluco se, santino azul k, blood Blood Glucose: mg/dl 144 Not Available In-Off ice Order Internal Use Only DO Not Attach Compendium DO Not Attach Compendium, Do Not Delete/merge, 07/14/2024 11:53:52 11/03/19 25 11/02/2024 influ sam virus A + B + SARS- CoV-2 (COVI D19) Ag panel , rapid IA, upper respi rator y speci men Flu A negati ve Not Available In-Office Order Internal Use Only DO Not Attach Compendium DO Not Attach Compendium, Do Not Delete/merge, 11/02/2024 16:58:08 11/03/19 25 11/02/2024 influ sam virus A + B + SARS- CoV-2 (COVI D19) Ag panel , rapid IA, upper respi rator y speci men Flu B positi ve Not Available In-Office Order Internal Use Only DO Not Attach Compendium DO Not Attach Compendium, Do Not Delete/merge, 11/02/2024 16:58:08 11/03/19 25 11/02/2024 influ sam virus A + B + SARS- CoV-2 (COVI D19) Ag panel , rapid IA, upper respi rator y speci men Rapid SARS CoV 2 Ag, QL IA, respiratory specimen negati ve Not Available In-Office Order Internal Use Only DO Not Attach Compendium DO Not Attach Compendium, Do Not Delete/merge, 11/02/2024 16:58:08 11/03/19 25 11/02/2024 rapid strep group A, throa t Strep negati ve Not Available In-Office Order Internal Use Only DO Not Attach Compendium DO Not Attach Compendium, Do Not Delete/merge, 11/02/2024 16:58:10 07/29/19 25 07/29/2024 MAMMO , scree ewa, bilat eral No observ ation record ed. [facility] Scheduling [address], [place], [address], 08/05/2024 13:08:30 Result Notes None recorded. Problems Name Problem SNOMED Code Status Onset Date Resolution Date Notes Provider Name and Address Organization Details Recorded Time Maternal history of gestatio nal diabetes 614475082 Completed A1c at IOB; follow closely Mindy Palafox [facility] Attn: Brett real,[address] [facility], [place], [address], [facility] - [facility] 8 12:31:10 Past pregnanc y history of section 503935079 Completed h/o CDx3; RCD+BTL at 39wks Mindy Palafox [facility] Attn: Brett real,[address] [facility], [place], [address], [facility] - [facility] 8 12:31:10 Morbid obesity 983527312 Completed consider early 1hr GTT Mindy Palafox [facility] Attn: Brett real,[address] [facility], [place], [address], [facility] - [facility] 8 12:31:10 Advanced maternal age 011731289 Completed referral to [facility] placed 01/07 Mindy Palafox [facility] Attn: Brett real,[address] [facility], [place], [address], [facility] - [facility] 8 12:31:10 Obesity 946531823 Completed 07/21/2018 Ragini Wilkinson RN null, [place] - [facility] 9 14:26:29 Herpes simplex 01309572 Completed NO hx of genital lesions, but agrees on prophyla xis in her 3rd trimeste r Wesley Cruz MD Attn: Brett real,[address] [facility], [place], [address], [facility] - [facility] 5 22:48:22 Past pregnanc y history of section 221383505 Completed Wesley Cruz MD Attn: Brett addie,[address] [facility], [place], [address], [facility] 5 22:48:22 Past pregnanc y history of section 015110940 Completed 07/21/2018 h/o CDx3; RCD+BTL at 39wks Ragini Wilkinson RN null, [place] - [facility] 9 14:26:07 Obesity 632933610 Completed Wesley Cruz MD Attn: Brett real,[address] [facility], [place], [address], [facility] - [facility] 5 22:48:22 Herpes simplex 74709756 Completed 07/21/2018 NO hx of genital lesions, but agrees on prophyla xis in her 3rd trimeste r Ragini Wilkinson RN null, [place] - [facility] 9 14:26:52 Gestatio nal diabetes mellitus 46221916 Completed 07/21/2018 Ragini Wilkinson RN null, [place] [facility] 9 14:26:02 Gestatio nal diabetes mellitus 68224073 Completed Wesley Cruz MD Attn: Brett addie,[address] [facility], [place], [address], [facility] - [facility] 5 22:48:22 Anemia 266198617 Active TIFFANI Beckford Attn: Brett addie,[address] [facility], [place], [address], [place] - [facility] 3 12:20:37 Anemia 773905327 Completed Wesley Cruz MD Attn: Brett addie,[address] [facility], [place], [address], [place] [facility] 5 22:48:22 Oligohyd ramnios with antenata l problem 402495641 Completed 02/17/2018 Removal Reason: resolved TIFFANI Beckford Attn: Brett addie,[address] [facility], [place], [address], [facility] 8 12:20:04 Oligohyd ramnios with antenata l problem 079661764 Completed Wesley Cruz MD Attn: Veronikajo-ann real,[address] [facility], [place], [address], [place] [facility] 5 22:48:22 Delivere d by section - pregnanc y at term 086095026 Completed 07/21/2018 GALDINO Conde, [place] - [facility] 9 14:26:16 Delivere d by section - pregnanc y at term 665856166 Completed Wesley Cruz MD Attn: Veronikajo-ann real,[address] [facility], [place], [address], [place] [facility] 5 22:48:22 Indigest ion 802413473 Completed 07/21/2018 Ragini Wil[place] RN null, [place] - [facility] 9 14:26:10 Pruritus of vagina 91508656 Completed 07/21/2018 Ragini Wilkinsno RN [place], [place] [facility] 9 14:26:21 Morbid obesity 374570406 Active consider early 1hr GTT TIFFANI Beckford Attn: Brett addie,[address] [facility], [place], [address], [place] [facility] 3 12:20:37 Low grade squamous intraepi thelial lesion on cervical Papanico laou smear 45758649107 105 Completed 07/21/2018 repeat paps normal 11/2015 and 09/2016 Ragini Wil[place] RN null, [place] - [facility] 9 14:26:44 Abnormal cervical Papanico laou smear 553768852 Completed 07/21/2018 GALDINO Conde, [place] - [facility] 9 14:26:35 Impaired glucose toleranc e 6994329 Completed 07/21/2018 Ragini [place] RN [place] [facility] 9 14:26:57 Pregnanc y 76305639 Completed 201702/17/2018 Removal Reason: resolved TIFFANI Beckford Attn: Brett real,[address], [place], [address], [place] [facility] 8 12:28:24 Genital herpes simplex 68769617 Completed 2017 no lesions at IOB visit; suppress ion starting 36wks Mindy Palafox [facility]- Attn: Accountin g,[address] [facility], [place], [address], [place] [facility] 8 12:31:10 Genital herpes simplex 46179730 Active 2017 no lesions at IOB visit; suppress ion starting 36wks Mindy Palafox [facility] Attn: Accountin g,[address] [facility], [place], [address], [place] [facility] 3 12:20:37 Migraine 29041813 Active 2017 Mindy Palafox [facility]- Attn: Accountin g,[address] [place], [address], [place] [facility] 3 12:20:37 Steatoti c liver disease 603511529 Active 2018 Mindy Palafox [facility] Attn: Accountin g,[address] [place], [address], [place] [facility] 3 12:20:37 Body mass index 40+ - severely obese 278207927 Active 2018 Mindy Palafox [facility]- Attn: Accountin g,[address] [facility], [place], [address], [place] [facility] 3 12:20:37 Multiple skin tags on neck 977797634 Active 2022 Mindy Palafox [facility] Attn: Accountin g,[address] [place], [address], [place] [facility] 4 11:24:26 Acute vaginiti s 48078630 Active 2023 Mindy Palafox [facility] Attn: Accountin g,[address] [place], [address], [place] [facility] 4 11:23:56 Injury of great toenail 198973592 Active 2023 TIFFANI Beckford Attn: Accountjo-ann real,[address] [facility], [place], [address], [place] [facility] 4 11:24:18 Elevated blood-pr essure reading without diagnosi s of hyperten bret [id number] Completed 202305/18/2024 Removal Reason: Has HTN TIFFANI Beckford Attn: Accountin g,[address] [facility], [place], [address], [place] [facility] 4 11:24:13 Diabetes mellitus [id number] Active 2023 TIFFANI Beckford Attn: Accountin g,[address] [facility], [place], [address], [place] [facility] 4 11:23:51 [facility] hyperten bret 70218577 Active 2023 TIFFANI Beckford Attn: Accountin g,[address] [facility], [place], [address], [place] [facility] 4 11:23:51 Uncontro lled type 2 diabetes mellitus 583542163 Active 2023 TIFFANI Beckford Attn: Accountin g,[address] [facility], [place], [address], [place] [facility] 4 11:23:51 Chest pain [id number] Completed 202305/18/2024 Removal Reason: resolved TIFFANI Beckford Attn: Veronikain g,[address] [facility], [place], [address], [place] [facility] 5 13:04:42 Multiple skin tags 137153603 Active 2023 TIFFANI Beckford Attn: Brett real,[address] [facility], [place], [address], [place] [facility] 4 11:24:21 Vitamin D deficien cy [id number] Active 2023 Mindy Palafox [facility] Attn: Brett real,[address] [facility], [place], [address], [place] 4 11:29:04 Cyclical mastalgi a 299575740 Active 2023 Mindy Palafox [facility] Attn: Accountjo-ann real,[address] [facility], [place], [address], [place] 4 15:59:58 Mixed hyperlip idemia 771009991 Active 2024 Mindy Palafox [facility] Attn: Brett real,[address] [facility], [place], [address], [place] 5 13:04:12 Chest pain 31593367 Active 2024 Mindy Palafox [facility] Attn: Brett real,[address] [facility], [place], [address], [facility] - [facility] 5 13:04:41 Problem Notes None recorded. Procedures Surgical History Date Name Laterality Status Provider Name and Address Organization Details Recorded Time 5 Date of Last Mammogram completed Ragini Wilkinson RN [facility] 11/02/2024 16:10:59 4 Date of Last Pap Smear completed Ragini Wilkinson RN [facility] 07/14/2024 11:52:39 7 Control Implant Removal completed Wesley Cruz MD Attn: Accounting,[address] [place], [address], [place] 02/20/2017 18:15:52 5 Control Implant Insertion completed Wesley Cruz MD Attn: Accounting,[address] [place], [address], [facility] 03/28/2015 18:43:15 5 Caesarean Section completed Mildred Doty [facility] 03/20/2015 16:46:55 5 NST completed Wesley Cruz MD Attn: Accounting,[address], [place], [address], [facility] 01/30/2015 17:16:52 5 NST completed Carmella Go MA [facility] 01/13/2015 14:32:55 5 NST completed Carmella Go MA [facility] 01/06/2015 16:44:02 5 NST completed Rico Rubi [facility] 12/28/2014 21:07:10 3 Caesarean Section completed Carmella Go MA [facility] 08/04/2014 14:02:49 8 Caesarean Section completed Carmella Go MA [facility] 08/04/2014 14:02:49 Imaging Results None recorded. Procedure Notes None recorded. Medical Equipment None Reported. Allergies No known drug allergies Medications Name Sig Start Date Stop Date Status Note LastModified by Organization Details LastModified Time multivita min tablet Take 1 tablet every day by oral route. 04/22 completed Not Available Not Available Not Available metformin 500 mg tablet TAKE ONE TABLET BY MOUTH TWICE DAILY FOR DIABETES 04/12 completed Not Available Not Available Not Available atorvasta tin 20 mg tablet TAKE ONE TABLET BY MOUTH ONCE DAILY AT BEDTIME FOR CHOLESTE ROL active Not Available Not Available No t Available albuterol sulfate 2.5 mg/3 mL (0.083 %) solution for nebulizat ion Inhale 3 mL 3 times a day by nebuliza tion route. 2024 active Not Available Not Available Not Avai lable diphenhyd ramine 50 mg capsule Take 1 capsule every day by oral route at bedtime. 04/18 completed Not Available Not Available Not Available ammonium lactate 12 % lotion Apply 1 applicat ion every day by topical route. 04/12 completed Not Available Not Available Not Available fluconazo le 150 mg tablet TAKE ONE TABLET BY MOUTH FOR INFECTIO N 11/02 completed Not Available Not Available Not Available benzonata te 200 mg capsule TAKE ONE CAPSULE BY MOUTH THREE TIMES DAILY, IN THE MORNING, AT MID-DAY & AT BEDTIME FOR COUGH active Not Available Not Available No t Available Alcohol Pads Apply 1 pad 4 times a day by topical route for 30 days. 2014 active Not Available Not Available Not Avai lable clotrimaz ole 1 % vaginal cream Insert 1 applicat orful every day by vaginal route at bedtime for 7 days, for vaginiti s. 11/02 completed Not Available Not Available Not Available chlorthal idone 25 mg tablet TAKE ONE TABLET BY MOUTH EVERY MORNING FOR FLUID RETENTIO N active Not Available Not Available No t Available triamcino lone acetonide 0.1 % topical cream APPLY A THIN LAYER TO THE AFFECTED AREA(S) BY TOPICAL ROUTE 2 TIMES PER DAY 07/21 completed Not Available Not Available Not Available acyclovir 800 mg tablet Take 1 tablet twice a day by oral route for 30 days. 09/07 completed Not Available Not Available Not Available Zantac 150 mg tablet Take 1 tablet twice a day by oral route for 30 days. 09/07 completed Not Available Not Available Not Available Vitamin tablet Take 1 tablet every day by oral route. 08/04 completed Not Available Not Available Not Available Metrogel Vaginal 0.75 % (37.5 mg/5 gram) Insert 1 applicat orful every day by vaginal route at bedtime for 5 days. 11/27 completed 09/12/15: [email or web address] spoke with Christie Not Available Not Available Not Available cephalexi n 500 mg capsule TAKE ONE CAPSULE BY MOUTH EVERY 6 HOURS FOR 10 DAYS 04/12 completed Not Available Not Available Not Available oseltamiv ir 75 mg capsule Take 1 capsule twice a day by oral route for 5 days, for INFLUENZ A B. 11/14 completed Not Available Not Available Not Available ferrous sulfate 325 mg (65 mg iron) tablet Take 1 tablet twice a day by oral route one hour before meals for 30 days. 09/07 completed Not Available Not Available Not Available metformin 1,000 mg tablet TAKE 1 Tablet BY MOUTH twice daily EVERY MORNING AND EVENING WITH MEALS FOR DIABETES active Not Available Not Available No t Available Humulin N NPH U-100 Insulin (isophane susp) 100 unit/mL subcutane ous active Not Available Not Available Not Available ibuprofen 400 mg tablet Take 1 tablet every 4 hours by oral route as needed. 04/22 completed Not Available Not Available Not Available mupirocin 2 % topical ointment APPLY TO THE AFFECTED AREA(S) THREE TIMES DAILY 04/12 completed Not Available Not Available Not Available ergocalci ferol (vitamin D2) 1,250 mcg (50,000 unit) capsule TAKE ONE CAPSULE BY MOUTH EVERY WEEK active Not Available Not Available No t Available methylpre dnisolone 4 mg tablets in a dose pack FOLLOW THE PACKAGE DIRECTIO NS active Not Available Not Available No t Available albuterol sulfate HFA 90 mcg/actua tion aerosol inhaler INHALE TWO PUFFS BY MOUTH EVERY 4 HOURS FOR BREATHIN G active Not Available Not Available No t Available lisinopri l 2.5 mg tablet TAKE ONE TABLET BY MOUTH ONCE EVERY DAY FOR BLOOD PRESSURE active Not Available Not Available No t Available amoxicill in 875 mg-potass ium clavulana te 125 mg tablet TAKE ONE TABLET BY MOUTH EVERY TWELVE HOURS UNTIL FINISHED active Not Available Not Available No t Available Sprintec (28) 0.25 mg-0.035 mg tablet Take 1 tablet every day by oral route. 04/18 completed 06/12/18: Refill x2 called into [facility] .05/12/18 : refill x1 given until appt on 05/19/18 . Not Available Not Available Not Available Tylenol as needed 04/22 completed Not Available Not Available Not Available Calcium with Vitamin D 600 mg-10 mcg (400 unit) tablet Take 1 tablet twice a day by oral route. 2023 active Not Available Not Available Not Avai lable Nexplanon 68 mg subdermal implant 07/25 completed Not Available Not Available Not Available evening primrose oil 1,300 mg capsule Take 1 capsule by oral route. 2023 active Not Available Not Available Not Avai lable Vitals Date Recorded Body height Body mass index (BMI) Body weight Oxygen saturation Heart rate Body temperature Systolic And Diastolic Provider Name and Address Organization Details Last Updated DateTime 4 158.75 cm 48.6 kg/m2 477563. 34 g 96 % 94 /min 98.4 [degF] 136/90 mm[Hg] Karina carmichael MA [facility] 4 15:28:23 Date Recorded Body height Provider Name an d Address Organization Details Last Updated DateTime 07/14/2024 158.75 cm Ragini Wilkinson RN [facility] 2024 11:51:02 Date Recorded Body mass index (BMI) Body weight Body temperature Oxygen saturation Heart rate Systolic And Diastolic Provider Name and Address Organization Details Last Updated DateTime 5 48.2 kg/m2 816187. 76 g 98.6 [degF] 99 % 88 /min 118/80 mm[Hg] Karina carmichael MA [facility] 5 12:21:56 Date Recorded Body height Body temperature Oxygen saturation Heart rate Systolic And Diastolic Provider Name and Address Organization Details Last Updated DateTime 5 158.75 cm 98.1 [degF] 95 % 101 /min 139/87 mm[Hg] Ragini Wilkinson RN [facility] 5 16:17:39 Date Recorded Body height Body mass index (BMI) Body weight Body temperature Heart rate Oxygen saturation Systolic And Diastolic Provider Name and Address Organization Details Last Updated DateTime 4 158.75 cm 49.2 kg/m2 340655. 52 g 98.2 [degF] 88 /min 96 % 136/86 mm[Hg] Temitope Fishman MA [facility] 4 14:44:57 Date Recorded Body mass index (BMI) Body weight Oxygen saturation Heart rate Body temperature Systolic And Diastolic Provider Name and Address Organization Details Last Updated DateTime 4 48.2 kg/m2 532814. 35 g 100 % 90 /min 97.9 [degF] 126/88 mm[Hg] Ragini Wilkinson RN [facility] 4 11:05:43 Date Recorded Body height Provider Name an d Address Organization Details Last Updated DateTime 05/18/2024 158.75 cm Karina carmichael [place] [facility] 05/18/2024 10:52:15 Social History Question Answer Notes LastModified by Organizat ion Details LastModified Time Tobacco Smoking Status Never Smoker Carmella Go MA null, [place] [facility] 08/04/2014 14:01:05 Do You Have An Advance Directive? No Information not available 04/22/2023 If You Are , What Was Your Level Of Alcohol Consumption Prior To ? None [email or web address] Information not available 08/04/2014 Plan No Information no t available 07/25/2017 Are You Blind Or Do You Have Difficulty Seeing? No Information not available 04/22/2023 Is Blood Transfusion Acceptable In An Emergency? Yes [email or web address] Information not available 08/04/2014 What Is Your Level Of Caffeine Consumption? Occasional Coffee Information not available 04/22/2023 Live With Cats/exposure To Cat Litter No Information not available 08/04/2014 How Much Tobacco Do You Chew? None Information not available 08/04/2014 In The 14 Days Before Symptom Onset, Have You Had Close Contact With A Laboratory-confir med COVID-19 While That Case Was Ill? No Information not available 07/01/2023 In The 14 Days Before Symptom Onset, Have You Had Close Contact With A Person Who Is Under Investigation For COVID-19 While That Person Was Ill? No Information not available 07/01/2023 Have You Been To An Area Known To Be High Risk For COVID-19? No Information not available 04/22/2023 Are You Deaf Or Do You Have Serious Difficulty Hearing? No Information not available 04/22/2023 What Type Of Diet Are You Following? REGULAR Information not available 08/04/2014 Which Illicit Or Recreational Drugs Have You Used? None [email or web address] Information not available 03/20/2015 Education Less Than 8th Grade 5th Grade [email or web address] Information not available 03/20/2015 Frequent Air Travel No Information not available 07/25/2017 Are There Any Guns Present In Your Home? No Information not available 09/08/2015 Hard Of Hearing Or Deaf In One Or Both Ears? No Information not available 09/08/2015 Illicit Drugs Pre- None Information not available 07/25/2017 Legally Blind In One Or Both Eyes? No Information no t available 09/08/2015 Live Alone Or With Others? With Others [email or web address] Information not available 08/04/2014 Marital Status [email or web address] Informatio n not available 08/18/2014 What Was The Date Of Your Most Recent Tobacco Screening? 11/02/2024 [email or web address] Information not available 11/02/2024 How Many Children Do You Have? 3 [email or web address] Information not available 08/04/2014 Performs Monthly Self-breast Exam? No Information no t available 03/20/2015 Do You Use Protection During Sex? No [email or web address] Information not available 03/20/2015 What Is Your Relationship Status? [email or web address] Information not available 03/20/2015 Do You Use Your Seat Belt Or Car Seat Routinely? Yes Information not available 04/22/2023 Seat Belts Used Routinely Yes [email or web address] Information not available 08/04/2014 Are You Sexually Active? Yes [email or web address] Information not available 08/04/2014 Smoke Alarm In Home Yes Information not available 09/08/2015 Do You Have Smoke And Carbon Monoxide Detectors In Your Home? Yes [email or web address] Information not available 08/04/2014 Are You Passively Exposed To Smoke? No [email or web address] Information no t available 08/04/2014 How Much Tobacco Do You Smoke? No [email or web address] Information not available 08/04/2014 Smoking Pre- No Information not available 08/04/2014 General Stress Level Low Information not available 08/04/2014 Do You Use Sunscreen Routinely? Yes Information not available 08/04/2014 Has Tobacco Cessation Counseling Been Provided? No Information not available 07/01/2023 Sex: Female Functional Status Question Answer Note LastModified by Organizat ion Details LastModified Time Do you use any illicit or recreational drugs? No Information not available 04/22/2023 Do you or have you ever used any other forms of tobacco or nicotine? No Information not available 07/01/2023 What is your level of alcohol consumption? None [email or web address] Information not available 08/04/2014 Are you currently employed? No [email or web address] Information not available 03/20/2015 Are you able to care for yourself independently? 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 Occasional [email or web address] Information not available 08/04/2014 Mental Status Question Answer Note LastModified by Organization D etails LastModified Time Do you feel stressed (tense, restless, nervous, or anxious, or unable to sleep at night)? [id number] Information not available 07/01/2023 Family History Relationship Description Onset Age of this Age Resolved Age Notes LastModified by Organization Details LastModified Time Mother Heart disease Not available 11:29:22 Mother Diabetes mellitus [email or web address] available 2022 12:32:15 Medical History Condition Response Heart Problems N Other N Breast Cancer N Kidney or Bladder Problems N Thyroid Problems N Depression N GI Problems N Lung Disease Y Acne N Eating Disorder N Breast Problem N Anemia N Anesthesia Complications N Headaches/Migraines Y Ovarian Cancer N Diabetes N Anxiety Disorder N Blood Transfusions N Arthritis N Polyps N Infertility N Acid Reflux (GERD) N Cancer N Stroke N Abuse/Domestic Violence N Asthma N Endometriosis N High Cholesterol N Hepatitis N Heart Disease N Fibromyalgia N Pre-Eclampsia N Hypertension N Osteoporosis N Kidney Disease N Gynecological History Statement/Question Response Abnormal Pap N Date of Last Mammogram 07/29/2024 Flow Moderate Date of LMP 10/29/2024 On BCP's at Conception? N STIs/STDs N Duration of Flow (days) 4 Current Control Method Tubal Ligat ion Age at First Child 14 Frequency of Cycle (Q days) 29 Sexually Active? Y Menses Monthly N Date of Last Pap Smear 05/18/2024 Sexual Problems? N LMP Definite Desired Control Method Implant Obstetrics History GPAL:G 6 P 5 0 0 5 Type Value Multiple Births 0 Full Term 5 Induced 0 Spontaneous 0 Premature 0 Living 5 Ectopics 0 Total 6 Immunizations Vaccine Type Date Status Note Provider Nam e and Address Organization Details Recorded Time Tdap 1 completed TIFFANI Beckford Attn: Accounting[address] [place], [address], [facility] 04/22/2023 12:31:39 COVID-19, mRNA, LNP-S, PF, 30 mcg/0.3 mL dose 1 completed Not Available [facility] 11/02/2024 16:08:51 COVID-19, mRNA, LNP-S, PF, 30 mcg/0.3 mL dose 1 completed Not Available [facility] 11/02/2024 16:08:51 Influenza, split virus, quadrivalent, preservative 7 completed Not Available [facility] 06/26/2019 02:46:40 Influenza, split virus, quadrivalent, preservative 8 completed Not Available [facility] 06/26/2019 02:40:23 Tdap 5 completed Ragini Wilkinson RN null, [place] [facility] 09/12/2015 16:04:21 Tdap 3 completed Ragini [place], [place] [facility] 09/12/2015 16:04:21 Influenza, split virus, quadrivalent, PF 3 completed Hilario Helms MD Attn: Accounting[address] [place], [address], [facility] 04/22/2023 16:19:51 Pneumococcal conjugate PCV20, polysaccharide SML919 conjugate, adjuvant, PF 4 completed TIFFANI Beckford Attn: Accounting[address] [place], [address], [place] [facility] 07/07/2023 14:06:25 Influenza, split virus, trivalent, preservative 4 completed Temitope Fishman [place] null, [place] [facility] 04/12/2024 15:26:17 Past Encounters Encounter ID Performer Location Encounter Start Date Encounter Closed Date Diagnosis/Indication Diagnosis SNOMED-CT Code Diagnosis ICD10 Code Diagnosis IMO Codes Diagnosis Note [id number] MD [facility] ([facility]) [address] [place] [address] 08/04/2014 13:02:57 08/04/2014 17:25:25 [id number] Wesley Cruz MD [facility] (S[facility]ILLANCE SPECIALIST) [address] [place] [address] 8 08/18/2014 14:00:35 08/18/2014 16:19:43 [id number] MD [facility] ([facility] SPECIAL[facility]) [address] [place] [address]797[address]861 8 09/01/2014 12:07:26 09/01/2014 14:26:13 [id number] Past pregn adeola history of section [id number] MD [facility] ([facility] SPECIAL[facility]) [address] [place] [address] 8 09/27/2014 16:15:08 09/29/2014 15:02:37 [id number] Past pregn adeola history of section [id number] MD [facility] ([facility] SPECIALIST) [address] [place] [address] 8 10/27/2014 15:44:46 11/01/2014 23:29:08 [id number] MD [facility] ([facility] SPECIALIST) [address] [place] [address] 8 11/01/2014 14:20:08 11/01/2014 23:56:45 [id number] MD [facility] ([facility] SPECIAL[facility]) [address] [place] [address] 8 11/28/2014 14:23:24 11/29/2014 15:38:25 [id number] Past pregn adeola history of section 244446840 Obesity 622774923 Herpes simplex 63151008 [id number] MD Samm Toney (SURVEILLANCE SPECIALIST) [address] [place] [address] 11/29/2014 11:15:23 11/30/2014 13:46:29 [id number] MD Samm T[facility] (SURVEILLANCE SPECIALIST) [address] [place] [address] 8 12/14/2014 15:56:12 12/15/2014 14:39:59 [id number] Gestationa l diabetes mellitus [id number] [facility] [id number] [facility] [address] [place] [address] 8 12/28/2014 17:35:37 12/29/2014 09:42:55 Gestational diabetes mellitus 99186300 Past pregn adeola history of section [id number] [facility] (SURVEILLANCE SPECIALIST) [address] [place] [address] 8 01/04/2015 13:58:14 01/04/2015 18:07:43 [id number] Past pregn adeola history of section [id number] Gestationa l diabetes mellitus 66939980 [id number] MD Samm [facility] (S[facility]ANCE SPECIALIST) [address] [place] [address] 01/06/2015 16:32:26 01/06/2015 18:00:17 [id number] Oligohydra mnios with problem [id number] MD [facility] ([facility] SPECIALIST) [address] [place] [address] 01/13/2015 14:22:19 01/18/2015 00:06:17 [id number] Gestationa l diabetes mellitus 77016392 [id number] MD Samm Toney (SURVEILLANCE SPECIALIST) [address] [place] [id number] 8 01/20/2015 15:45:44 01/23/2015 10:26:43 Gestational diabetes mellitus 71657937 Herpes simplex 78371322 [id number] MD Samm Toney (SURVEILLANCE SPECIALIST) [address] [place] [address] 01/30/2015 14:55:42 02/03/2015 12:24:33 [id number] Gestationa l diabetes mellitus 78912808 Past pregn adeola history of section 523274942 Herpes simplex 76981965 [id number] MD Samm Toney (SURVEILLANCE SPECIALIST) [address] [place] [address] 8 02/17/2015 14:16:30 02/21/2015 11:32:46 Delivered by section - at term [id number] MD Samm Toney (SURVEILLANCE SPECIALIST) [address] [place] [address]22[address] 03/20/2015 15:07:10 03/27/2015 16:21:07 care 812209912 Z39.2 [id number] MD Samm Toney (SURVEILLANCE SPECIALIST) [address] [place] [address]150[address] 8 03/28/2015 09:55:41 04/02/2015 18:34:53 Family planning education 982991311 Z30.02 [id number] MD Samm Toney (SURVEILLANCE SPECIALIST) [address] [place] [address] 8 04/11/2015 11:42:26 04/11/2015 15:26:35 Contraception care management 713283382 Z30.9 pt to get test in 1-2 weeks and check if positive and rto at any time then for preg testing [id number] MD Samm Toney (SURVEILLANCE SPECIALIST) [address] [place] [address]62[address] 8 07/12/2015 14:55:23 07/17/2015 16:18:30 Indigestion 840075372 K30 [id number] Mindy Palafox, [facility] [address], [place] [address] 09/08/2015 14:29:04 09/13/2015 11:10:09 Gynecologic examination 65565282 Z01.411 no pay source calcium rich food handout vitamin D daily SBE exercise diet low fat low cho low carb Pruritus of vagina 91189 003 L29.3 Morbid obesity 620523113 E66.01 Gestationa l diabetes mellitus 80550980 O24.419 [id number] Mindy Palafox [facility] [address], [place] [address] 11/28/2015 11:06:50 11/29/2015 17:15:22 Low grade squamous intraepithelial lesion on cervical Papanicolaou smear 6279133975 9105 R87.612 Abnormal c ervical Papanicolaou smear 832934350 R87.619 Impaired g lucose tolerance 9192886 R73.02 [id number] Lewis Lam MD [facility] [address] [place] [address] 09/10/2016 11:26:09 09/13/2016 11:44:28 Gynecologic examination 79556696 Z01.411 calcium rich food handout vitamin D daily SBE exercise diet low fat low cho low carb Obesity 328766409 E66.9 weight loss, exercise Chronic constipation 236 141035 K59.00 increase water and fiber daily [id number] Wesley Cruz MD [facility] (SURVEILLANCE SPECIALIST) [address] [place] [address] 02/20/2017 16:16:33 02/24/2017 14:08:11 Contraception care management 147552666 Z30.9 pt to get test in 1-2 weeks and check if positive and rto at any time then for preg testing [id number] Mindy Palafox [facility] [address] [place] [address] 4 02/24/2017 12:11:47 03/01/2017 22:38:05 Suicidal thoughts 4232095 R45.851 to E/R immediatel y Dizziness 455495354 R42 to E/R immediatel y [id number] Lewis Lam MD [facility] [address] [place] [address] [place] [address] 03/05/2017 16:02:27 03/11/2017 12:57:05 Morbid obesity 410256577 E66.01 Avoid all breads, potatoes, cereal, pasta, rice, margarine, refined sugars, milk yogurt, ice cream, juices, soda (including diet), beer, and manmade or manufactur ed desserts. Enjoy fish, chicken (no skin), pork, butter, vegetables , beans, nuts, whole eggs, cheese (low fat or skim), cream in your coffee. Steatotic liver disease 197094135 K76.0 Alpha lipoid Acid diet, weight loss, and exercise Impaired g lucose tolerance 4747468 R73.02 Depressive disorder 3548 9007 F32.0 will make appt to see psychother apist Follow-up visit [id number] Z09 Administra tion of influenza vaccine 16964187 Z23 [id number] MD [facility] ([facility] SPECIALIST) [address] [place] [id number] 8 07/25/2017 14:22:20 08/06/2017 16:38:05 Missed period 50639631 N92.5 Will follow in 4 weeks -patient to keep menstrual calendar She wantsi to get advised to lose weight on discussing Risks assoc to and obesity Morbid obesity 882468745 E66.01 weight loss counseling done rto in 4 weeks [id number] MD [facility] ([facility] SPECIALIST) [address] [place] [address] 01/06/2018 13:32:01 01/08/2018 11:41:02 Routine care 841808411 Z34.90 Past pregn adeola history of section 961407052 Z98.890 Morbid obesity 140095755 E66.01 [id number] MD [facility] (SUR[facility]ILLANCE SPECIALIST) [address] [place] [address] 8 02/02/2018 09:47:21 02/03/2018 09:46:00 Threatened miscarriage in first trimester 90464369 O20.0 -DDx included missed AB vs complete AB-b-hCG & CBC today (Hgb 10.8 on 01/31 per review of records)-r epeat TVUS ordered-fo llow-up pending ultrasound results (i.e. misoprosto l vs D&C for missed AB, no further interventi on if empty uterine cavity) [id number] Lewis Lam MD [facility] [address] [address] 02/12/2018 11:13:04 02/13/2018 13:06:17 Pruritic rash 14277665 L28.2 Abnormal v aginal bleeding 369820441 N93.9 UA HCG- [id number] Rico Rubi MD [facility] [address] [address] 02/17/2018 11:49:11 02/18/2018 17:29:04 Contraception care management 480520524 Z30.9 Morbid obesity 595897065 E66.01 Avoid all breads, potatoes, cereal, pasta, rice, margarine, refined sugars, milk yogurt, ice cream, juices, soda (including diet), beer, and manmade or manufactur ed desserts. Enjoy fish, chicken (no skin), pork, butter, vegetables , beans, nuts, whole eggs, cheese (low fat or skim), cream in your coffee. Blood pres sure above reference range 07875603 R03.0 reduce salt in your diet 50-60 minutes of aerobic physical activity 5-6 time per week lose weight 5-20% of current body weight if B/P remains elevated will start B/P meds Recheck b/p with large cuff Left arm [id number] Lewis Lam MD [facility] [address] [address] 03/03/2018 15:53:00 03/05/2018 17:39:09 Active or passive immunization 784061915 Z23 [id number] Rico Rubi MD [facility] [address] [address] 07/21/2018 14:10:30 07/23/2018 11:54:00 Gynecologic examination 24422169 Z01.411 calcium rich food handout vitamin D daily SBE exercise diet low fat low cho low carb Chronic constipation 236 759444 K59.00 increase water and fiber daily Body mass index 40+ - severely obese 219934268 Z68.41 Contracept ion care management 154093717 Z30.9 Vaginitis 72804176 N76.0 Insomnia 385580968 G47.0 0 [id number] JUAN MELENDREZ [facility] [address] [place] [address] 04/18/2020 15:09:27 04/19/2020 06:55:43 Gynecologic examination 83025101 Z01.419 -clinical breast & pelvic examinatio ns completed today, unremarkab le -cervical cancer screening UTD: last Pap 07/21/2018, negative. -Cycle tracking for contracept ion. Declines contracept cristal. -Educated osteoporos is prevention including calcium rich diet, weight bearing exercise. Will start supplement . -RTC in 1yr Mastodynia of right breast [id number] 8395663 N64.4 Intermitte nt R breast pain x months. PE unremarkab le. Pt not wearing bra, likely pain from Paolo's ligaments. Educated patient to use sports bra for better support and compressio n. Use warm compresses to breasts to help alleviate pain. IBU as needed for pain. RTC if symptoms do not improve. [id number] Hilario Helms MD [facility] [address] [place] [address] 04/22/2023 11:49:02 04/23/2023 11:33:22 Morbid obesity 900676116 E66.01 BMI 49.5Avoid all breads, potatoes, cereal, pasta, rice, margarine, refined sugars, milk yogurt, ice cream, juices, soda (including diet), beer, and manmade or manufactur ed desserts. Enjoy fish, chicken (no skin), pork, butter, vegetables , beans, nuts, whole eggs, cheese (low fat or skim), cream in your coffee. Gynecologi c examination 18563139 Z01.411 Last pap 2018 normal neg HPV due in 2023 calcium rich food handout vitamin D daily SBE exercise diet low fat low cho low carb Chronic constipation 236 305131 K59.00 increase water and fiber daily Body mass index 40+ - severely obese 478002035 Z68.41 BMI 49.5 Depression screening 171 734635 Z13.31 PHQ 2-[address] [facility] screening 070291331 Z13.39 AUNDREA-7 NEG Family his tory of diabetes mellitus in first degree relative 987423151 Z83.3 Hyperlipid emia screening 227424099 Z13.220 Administra tion of influenza vaccine 98447732 Z23 Screening for disorder 700369032 Z13.9 Multiple s kin tags on neck 998727980 L91.8 SCHEDULE FOR REMOVAL Past pregn adeola history of gestational diabetes mellitus 391215977 Z86.32 Screening for malignant neoplasm of breast 969929352 Z12.39 Fibrocysti c changes of bilateral breasts 7363979706 0426287 N60.11 N60.12 PRIMROSE OILAVOID CAFFEINE Uncontroll ed type 2 diabetes mellitus 502692133 E11.65 random HA1C 10.4 [id number] Lewis Lam MD [facility] [address], [place] [address] 07/01/2023 15:12:57 07/09/2023 10:20:02 Morbid obesity 818890644 E66.01 BMI 48.6Avoid all breads, potatoes, cereal, pasta, rice, margarine, refined sugars, milk yogurt, ice cream, juices, soda (including diet), beer, and manmade or manufactur ed desserts. Enjoy fish, chicken (no skin), pork, butter, vegetables , beans, nuts, whole eggs, cheese (low fat or skim), cream in your coffee. Steatotic liver disease 908498674 K76.0 Alpha lipoid Acid diet, weight loss, and exerciseWe ight loss leads to improvemen t in liver biochemica l tests, liver histology, serum insulin levels and quality of life.Maint ain a healthy weight. Lose weight if you are overweight or obeseEat a healthy diet. Try to limit salt and sugar. You can eat fruits, vegetables and whole grains. The Mediterran sidney Diet is a good choice.Exe rcise regularly. This can help you lose weight and reduce fat in the liverLower your cholestero l and triglyceri desAvoid alcoholOnl y take medicines that you need and follow dosing recommenda tions. If you want to take any dietary supplement s like vitamins and herbal remedies, please call the office first.No Tylenol Body mass index 40+ - severely obese 161675183 Z68.41 BMI 48.6 Uncontroll ed type 2 diabetes mellitus 914082131 E11.65 + POLYSrando m HA1C 9.2stop metformin 500mg bidstart metformin 1000mg bidstart Lisinopril 2.5mg daily for kidney protection start Rx atorvastat in 20mg daily for mixed hyperlipid emiaHypogl ycemiaHype rglycemiac heck with pharmacy on [employer] machine-it was ordered at last visit Depression screening 171 652182 Z13.31 PHQ 2-9 NEG Mental hea lth screening 241596839 Z13.39 AUNDREA-7 NEG Mixed hyperlipidemia 267 985906 E78.2 04/22/2023 cho 175trig 132HDL 36LDL 115Avoid all breads, potatoes, cereal, pasta, rice, margarine, refined sugars, milk yogurt, ice cream, juices, soda (including diet), beer, and manmade or manufactur ed desserts. Enjoy steak, fish, chicken (no skin), pork, butter, vegetables , beans, nuts, whole eggs, cheese (low fat or skim), cream in your coffee. Administra tion of pneumococcal vaccine 15083906 Z23 Acute vaginitis 17782330 N76.0 c/o vaginal itching no discharge Injury of great toenail 268478753 S99.922A Elevated blood-pressure reading without diagnosis of hypertension 614724972 R03.0 REPEAT B/P CHECKreduc e salt in your diet 50-60 minutes of aerobic physical activity 5-6 time per week lose weight 5-20% of current body weight if B/P remains elevated will start B/P meds Dry skin dermatitis 2600 85674 L85.3 [id number] Lewis Lam MD [facility] [address], [place] [address] 04/12/2024 14:11:06 04/13/2024 11:02:54 Body mass index 40+ - severely obese 217033380 Z68.41 BMI 49.2Health y Weight: 5'3= 107-140 lbs Uncontroll ed type 2 diabetes mellitus 252155714 E11.65 + POLYSrando m HA1C 11.1re-sta rt metformin 1000mg bidre-star t Lisinopril 2.5mg daily for kidney protection re-start Rx atorvastat in 20mg daily for mixed hyperlipid emiaHypogl ycemiaHype rglycemiac heck with pharmacy on [employer] machine-it was ordered at last visit Mixed hyperlipidemia 267 781586 E78.2 04/22/2023 cho 175trig 132HDL 36LDL 115Avoid all breads, potatoes, cereal, pasta, rice, margarine, refined sugars, milk yogurt, ice cream, juices, soda (including diet), beer, and manmade or manufactur ed desserts. Enjoy steak, fish, chicken (no skin), pork, butter, vegetables , beans, nuts, whole eggs, cheese (low fat or skim), cream in your coffee. Morbid obesity 475345721 E66.01 BMI 49.2Avoid all breads, potatoes, cereal, pasta, rice, margarine, refined sugars, milk yogurt, ice cream, juices, soda (including diet), beer, and manmade or manufactur ed desserts. Enjoy fish, chicken (no skin), pork, butter, vegetables , beans, nuts, whole eggs, cheese (low fat or skim), cream in your coffee. Steatotic liver disease 802470837 K76.0 Alpha lipoid Acid diet, weight loss, and exerciseWe ight loss leads to improvemen t in liver biochemica l tests, liver histology, serum insulin levels and quality of life.Maint ain a healthy weight. Lose weight if you are overweight or obeseEat a healthy diet. Try to limit salt and sugar. You can eat fruits, vegetables and whole grains. The Mediterran sidney Diet is a good choice.Exe rcise regularly. This can help you lose weight and reduce fat in the liverLower your cholestero l and triglyceri desAvoid alcoholOnl y take medicines that you need and follow dosing recommenda tions. If you want to take any dietary supplement s like vitamins and herbal remedies, please call the office first.No Tylenol Acute vaginitis 01735528 N76.0 c/o vaginal itching no discharge Essential hypertension 81684608 I10 BP Goal: Less than 150/90BP Controlled : noHealthy Weight: 5'3= 107-140 lbsDiscuss ed: Low sodium balanced diet, moderate exercise at least 3-4 times per week for an average of 40 minutesNex t Visit: 3month(s) Chest pain 97674169 R07. 9 midsternum CPCant breathes/s for last 6 monthssome times at night at rest and with activity Administra tion of influenza vaccine 60616945 Z23 Multiple skin tags 27383 7009 L91.8 on neck [id number] Hilario Helms MD [facility] [address] [place] [address] 05/18/2024 10:47:52 05/19/2024 09:08:04 Gynecologic examination 51680382 Z01.411 Normal Territory Manager examLast pap 07/21/2018 normal cytology neg HPV will update todayLast mammogram has not had donecolono scopy Under 45 y/oSTD screen done will treat accordingl ySelf breast examcalciu m rich foods handoutvit palmer D 1000 iu dailyexerc ise 40-50 minutes 4-5 days per weekweight lossdiet Morbid obesity 289333977 E66.01 BMI 49.5Avoid all breads, potatoes, cereal, pasta, rice, margarine, refined sugars, milk yogurt, ice cream, juices, soda (including diet), beer, and manmade or manufactur ed desserts. Enjoy fish, chicken (no skin), pork, butter, vegetables , beans, nuts, whole eggs, cheese (low fat or skim), cream in your coffee. Chronic constipation 236 767273 K59.00 increase water and fiber daily Body mass index 40+ - severely obese 063478228 Z68.41 BMI 48.2 Multiple s kin tags on neck 821921509 L91.8 SCHEDULE FOR REMOVAL Screening for malignant neoplasm of breast 133348232 Z12.39 Has not had done yet Fibrocysti c changes of bilateral breasts 0431206470 0377997 N60.11 N60.12 PRIMROSE OILAVOID CAFFEINE Vitamin D deficiency 347 39049 E55.9 Vitamin D 8Start Rx Vitamin D2 78441 IU once weekly for 12 weeksonce you complete RX buy otc vitamin D3 1000 IU once daily Upper resp iratory infection 76143494 J06.9 cool mist humidifier fluidshot teas Cyclical mastalgia 06711 3001 N64.4 PRIMROSE OILAVOID CAFFEINE [id number] Lewis Lam MD [facility] [address] [place] [address] 07/14/2024 11:29:08 07/15/2024 13:09:59 Uncontrolled type 2 diabetes mellitus 915845253 E11.65 + POLYSrando m HA1C 11.1re-sta rt metformin 1000mg bidre-star t Lisinopril 2.5mg daily for kidney protection re-start Rx atorvastat in 20mg daily for mixed hyperlipid emiaHypogl ycemiaHype rglycemiac heck with pharmacy on [employer] machine-it was ordered at last visit Essential hypertension 14297891 I10 BP Goal: Less than 150/90BP Controlled : noHealthy Weight: 5'3= 107-140 lbsDiscuss ed: Low sodium balanced diet, moderate exercise at least 3-4 times per week for an average of 40 minutesNex t Visit: 3month(s) Body mass index 40+ - severely obese 062985862 Z68.41 BMI 48.2 Chest pain 97858416 R07. 9 resolvingm idsternum CPCant breathes/s for last 6 monthssome times at night at rest and with activity Mixed hyperlipidemia 267 138088 E78.2 04/22/2023 cho 175trig 132HDL 36LDL 115 04/12/2024 cho 180trig 251HDl 37LDL 100Avoid all breads, potatoes, cereal, pasta, rice, margarine, refined sugars, milk yogurt, ice cream, juices, soda (including diet), beer, and manmade or manufactur ed desserts. Enjoy steak, fish, chicken (no skin), pork, butter, vegetables , beans, nuts, whole eggs, cheese (low fat or skim), cream in your coffee. Morbid obesity 085342595 E66.01 BMI 49.2Avoid all breads, potatoes, cereal, pasta, rice, margarine, refined sugars, milk yogurt, ice cream, juices, soda (including diet), beer, and manmade or manufactur ed desserts. Enjoy fish, chicken (no skin), pork, butter, vegetables , beans, nuts, whole eggs, cheese (low fat or skim), cream in your coffee. Steatotic liver disease 540687673 K76.0 Alpha lipoid Acid diet, weight loss, and exerciseWe ight loss leads to improvemen t in liver biochemica l tests, liver histology, serum insulin levels and quality of life.Maint ain a healthy weight. Lose weight if you are overweight or obeseEat a healthy diet. Try to limit salt and sugar. You can eat fruits, vegetables and whole grains. The Mediterran sidney Diet is a good choice.Exe rcise regularly. This can help you lose weight and reduce fat in the liverLower your cholestero l and triglyceri desAvoid alcoholOnl y take medicines that you need and follow dosing recommenda tions. If you want to take any dietary supplement s like vitamins and herbal remedies, please call the office first.No Tylenol Acute vaginitis 65804390 N76.0 c/o vaginal itching no discharge Multiple skin tags 81959 7009 L91.8 on neck Anemia 182623626 D64.9 04/12/2024 HGB 9.4HCT 34.1 [id number] Lewis Lam MD [facility] [address] [address] 11/02/2024 16:07:16 11/03/2024 12:31:16 Acute bilateral otitis media 740016107 H66.93 3323299 Viral uppe r respiratory tract infection 471599300 J06.9 9741810 cool mist humidifier fluidshot teassuppor tive measures Influenza caused by Influenza B virus 18083657 J10.1 948796 Health Concerns Section Related Observation LastModified by Organization Detai ls LastModified Time None Recorded Concern Status LastModified by Organization Details LastModified Time None Recorded Advance Directives Directive N: Payers Insurance Date Sequence Insurance Name Policy Number Policy Caruso Covered Member ID Caruso Member ID Guarantor Name 04/12/2024 3 [place] Caterina Cha [id number] Caterina Garnica 02/02/2018 1 MEDICAID - MOVED-MGRHOL D - PENDING [id number] Caterina Cortezmenjivar 04/12/2024 SLIDING FEE SCHEDULE - DISCOUNT Caterina Cortezmenjivar 04/22/2023 2 *SELF PAY* Benjamin kearns Semajmenjivar 07/21/2018 SLIDING FEE SCHEDULE - DISCOUNT Caterina Cortezmenjivar 04/12/2024 1 [facility] PRIOR TO 12/07/2020 (MEDICAID REPLACEMENT - HMO) Caterina Cha [id number] Caterina Cortezmenjivar 11/12/2024 1 [facility] (MEDICAID HMO) [id number] Caterina Cortezmenjivar [id number] Caterina Cortezmenjivar 02/20/2017 SLIDING FEE SCHEDULE - DISCOUNT Caterina Cortezmenjivar 04/12/2024 1 [place] Caterina Cha [id number] Caterina Cortezmenjivar 04/12/2024 1 [place] Caterina Mar Cha [id number] Caterina Cortezmenjivar 04/12/2024 1 [place] Caterina Pelayoez [id number] Caterina Cortezmenjivar 04/12/2024 1 [place] Caterina Pelayoez [id number] Caterina Cortezmenjivar 04/12/2024 1 [place] [facility] Lawrence Pelayoezmenjivar [id number] Caterina Cortezmenjivar 04/12/2024 1 [place] Lawrence Mar Cortezmenjivar [id number] Caterina Cortezmenjivar 04/12/2024 1 [facility] PRIOR TO 12/07/2020 (MEDICAID REPLACEMENT - HMO) Caterina Cha-Nuñez [id number] Caterina Cortezmenjivar 04/12/2024 1 [facility] PRIOR TO 12/07/2020 (MEDICAID REPLACEMENT - HMO) Lawrence Pelayoezmenjivar [id number] Caterina Cortezmenjivar 09/08/2015 SLIDING FEE SCHEDULE - DISCOUNT Caterina Cortezmenjivar 09/10/2016 SLIDING FEE SCHEDULE - DISCOUNT Caterina Cortezmenjivar 01/06/2018 1 *SELF PAY* Benjamin kearns Cortmonimenjivar 01/06/2018 SLIDING FEE SCHEDULE - DISCOUNT Caterina Cortezmenjivar 03/19/2017 SLIDING FEE SCHEDULE - DISCOUNT Caterina Cortezmenjivar 01/06/2018 SLIDING FEE SCHEDULE - DISCOUNT Caterina Cortezmenjivar Notes Date Note Type Note Provider Name and Address Organization Details Recorded Time 4 text/html HyperlipidemiaReported by PatientHPIFor control, patient reportsusually well controlled,improving, andat goal. For compliance, patient reportscompliant,compliant with diet, andexercises. For complications, patient reportsno coronary artery disease,no peripheral artery disease, andno cardiovascular disease. Diabetes F/UReported by PatientHPIFor context, patient reportsnormal range of home blood sugars (in the low 100s),seeing eye doctor regularly, andchecking feet regularly. For associated symptoms, patient reportsno weight gain,no weight loss,no dizziness,no sweats,no headaches,no confusion,no increased thirst,no increased appetite,no increased urination,no blurred vision,no numbness of feet, andno calluses on feet. 42 y/o HF presents for f/u following initiation of metformin. She reports still has some vaginal itching no discharge. Also has feet cracking and peeling.She agrees to Prevnar 20 has no contraindications. Mindy Palafox, [employer]- Attn: Accounting,[address] [place], [address], [facility] 07/07/2023 14:10:59 4 text/html HyperlipidemiaReported by PatientHPIFor type of hyperlipidemia, patient reportscombined. For duration, patient reportschronic. For control, patient reportsnot at goal. For compliance, patient reportsnoncompliant,noncomp liant with diet, anddoes not exercise. For risk factors, patient reportsdiabetes,hypertensio n,obesity, andlow hdl level. For complications, patient reportsno coronary artery disease,no peripheral artery disease, andno cardiovascular disease. For current therapy, (3cho 175trig 132hdl 36ldl 115). Diabetes F/UReported by PatientHPIFor associated symptoms, patient reportsincreased thirst,increased appetite,increased urination, andblurred visionbut reportsno weight gain,no weight loss,no dizziness,no sweats,no headaches,no confusion,no numbness of feet, andno calluses on feet. For labs, patient reportslast a1c result: 11.1.ROS as noted in the HPI 43y/o HF presents for f/u following initiation of metformin. She reports still has vaginal itching no discharge. Also has feet cracking and peeling. She has been having CP for last 6 months with radiation up to neck while at rest or with activity. She took meds for 2 months then she stopped. She has been having poly's and visual disturbances. She wants to get influenza vaccine. She has no contraindications. CHANDAN Beckford- Attn: Accounting,[address] [place], [address], [facility] 04/12/2024 15:55:05 4 text/html Annual GYNReported by PatientGenitourinary symptomsFor vagina, patient reportsfoul-smelling,white, andvaginal itching. For menstrual cycle, patient reportsnormal menses. For urinary symptoms, patient reportsno hematuriaandno incontinence. For vulva, patient reportsno genital lesion.Breast symptomsFor breast, patient reportsbreast pain (r)but reportsno breast lumpandno nipple discharge.ContraceptionFor current contraception, patient reportssatisfied with current contraception,monogamous relationship,oral contraceptives, andrhythm method.Endocrine symptomsFor sexual complaints, patient reportsno sexual complaints,no pain during intercourse, andnormal libido. For menopausal symptoms, patient reportsno menopausal symptomsandnormal vaginal lubrication.Psychological symptomsFor psychological symptoms, patient reportsno depression,no anxiety, andno pmdd(insomnia for last couple of months-just cant seem to get to sleep wants to try rx).Preventative measuresFor preventive measures, patient reportsencourage self breast examination,encourage regular exercise,encourage no tobacco use,encourage regular mammograms starting age 40,followed with q3 year pap smear and high risk hpv typing, andhistory of abnormal pap smear/cervical dysplasia.ROS as noted in the HPI Patient is a 43 yo obese female presenting for annual presser all around exam.Her last pap was done on 07/21/2018, normal cytology and neg HPV. She denies any urinary symptoms and discharge. LMP 04/05/2024. She has no other concerns today. She had BTL for contraception.Patient has had a cold for about two weeks, no fever or chills. Some coughing but getting better. Hilario Helms MD Attn: Accounting,[address] [facility], [place], [address], [facility] 05/18/2024 16:02:54 5 text/html HyperlipidemiaReported by PatientHPIFor type of hyperlipidemia, patient reportscombined. For duration, patient reportschronic. For control, patient reportsnot at goal. For compliance, patient reportsnoncompliant,noncomp liant with diet, anddoes not exercise. For risk factors, patient reportsdiabetes,hypertensio n,obesity, andlow hdl level. For complications, patient reportsno coronary artery disease,no peripheral artery disease, andno cardiovascular disease. For current therapy, (3cho 175trig 132hdl 36ldl 115). Diabetes F/UReported by PatientHPIFor associated symptoms, patient reportsincreased thirst,increased appetite,increased urination, andblurred visionbut reportsno weight gain,no weight loss,no dizziness,no sweats,no headaches,no confusion,no numbness of feet, andno calluses on feet. For labs, patient reportslast a1c result: 11.1.ROS as noted in the HPI 43y/o HF presents for f/u following DM 2 and refill metformin. She has been having CP for last 6 months with radiation up to neck while at rest or with activity. She took meds for 2 months then she stopped. She has been having poly's and visual disturbances. TIFFANI Beckford Attn: Accounting,[address] [facility], [place], [address], [facility] 07/14/2024 18:02:59 5 text/html Upper Respiratory SymptomsReported by PatientUpper Respiratory SymptomsFor quality, patient reportsproductive cough,sharp throat pain,colored phlegm,congested,hacking cough,wheezy cough, andhurts to swallow. For associated symptoms, patient reportschest pain,yellow-green, thick sputum,yellow sputum,fatigue,morning cough, andsore throatbut reportsno shortness of breath,no wheezing,no change in number of pillows needed to sleep at night,no sweats,no fever,no significant weight gain,no significant weight loss,no vomiting,no diarrhea,no rash, andno nausea. For location, patient reportshead,chest, andthroat. For severity, patient reportssevereandpain level 12/16. For onset/timing, patient reportssudden. For context, patient reportsno sick contacts,no foreign travel, andnon-smoker. For modifying factors, patient reportsotc medication.ROS as noted in the HPI 44 y/o HF presents for c/o 4 day history of cough, congestion, headaches, thick yellow mucous, forehead pain and L ear pain with drainage. No sick contacts. No recorded fever. Patient is taking tylenol for symptoms mild improvement. She denies any diarrhea or vomiting. TIFFANI Beckford Attn: Accounting,[address] [place], [address], [facility] 11/02/2024 17:35:30 OBGyn Episode Ob Episode Information Episode Created Date Number of Fetuses Patient Bloodtype Patient rh Status Prepregnancy Weight lbs Domestic Partner Domestic Partner Phone Father Name Racing Car Driver Status 04/22/20 23 1 CLOSED Fetus Data First Name Last Name Admitted to NICU Weight (g) Sex Living Outcome Pediatric Complications Fetus ID Race Codes Race Delivery Type F [id number] Elvis Calculation Initial Elvis Date Initial Exam Date Initial Exam Provider Initial Ultrasound Date Last Menstrual Period Date Ultra Sound Weeks Gestation 0 Eighteen To Twenty Week Elvis Update Ultra Sound Date Fundal Height At Umbil Quickening Date Ultra Sound Latest Weeks Gestation Final Elvis Confirmed By Final Elvis Confirmed Date Final Elvis Date Ultra Sound Latest Days Gestation 0 0 Menstrual History Last Menstrual Date Menses Monthly On Bcp Conception Prior Menses Frequency Hcg Plus Date Menarche Onset Age Delivery Information Delivery Date Delivery Type Labor Anesthesia Weeks Gestation Incision Type Labor Labor Length Hrs Delivered By Post Complications Tubal Sterilization Discharge Date Comments 1 Discharge Information Feeding Method Contraceptive Method Maternal HG B and HCT Levels Ob Episode Information Episode Created Date Number of Fetuses Patient Bloodtype Patient rh Status Prepregnancy Weight lbs Domestic Partner Domestic Partner Phone Father Name Racing Car Driver Status 08/04/19 15 1 O Positive 200 CLOSED Fetus Data First Name Last Name Admitted to NICU Weight (g) Sex Living Outcome Pediatric Complications Fetus ID Race Codes Race Delivery Type Yesenia campos false 3827.18 25 F true Full Term [id number] White Problems Problem Notes Problem Name Start Date End Date Resolution Snomed Code Not e Herpes simplex [id number] NO hx of genital lesions, but agrees on prophylaxis in her 3rd trimester Past history of section OTHER [id number] Obesity [id number] Anemia [id number] Gestational diabetes mellitus [id number] Oligohydramnios with problem [id number] Delivered by section - at term [id number] Elvis Calculation Initial Elvis Date Initial Exam Date Initial Exam Provider Initial Ultrasound Date Last Menstrual Period Date Ultra Sound Weeks Gestation 02/16/2015 08/04/2014 08/22/2014 05/12/2014 14 Eighteen To Twenty Week Elvis Update Ultra Sound Date Fundal Height At Umbil Quickening Date Ultra Sound Latest Weeks Gestation Final Elvis Confirmed By Final Elvis Confirmed Date Final Elvis Date Ultra Sound Latest Days Gestation 09/23/19 15 17 [email or web address] 10/27/2014 015 6 Pre- Flowsheet Flowsheet Date 08/04/2014 Rousseau Score Blood Edema Fundus Height Fundus Units Glucose Ketones Leukocytes Nitrite Labor Signs Protein Cervic Dilation Cervic Effacement Cervic Station neg none 10 wks none negative neg Type Weight in lbs Pre/Post Dialysis Refused 221.772900696360 BP Diastolic BP Location Tested BP Systolic BP Type 60 R arm 110 sitting Fetus Heart Rate Present Fetus Movement Comments vulvar irritation--clotrimaz ole Tx / PN labs / U/S / rto in 2 weeks Flowsheet Date 08/18/2014 Rousseau Score Blood Edema Fundus Height Fundus Units Glucose Ketones Leukocytes Nitrite Labor Signs Protein Cervic Dilation Cervic Effacement Cervic Station neg none none negative neg Type Weight in lbs Pre/Post Dialysis Refused 222.39338698240 BP Diastolic BP Location Tested BP Systolic BP Type 70 L arm 106 sitting Fetus Heart Rate Present Fetus Movement Comments rto 2 weeks ffor integrsed p constance completion and FHT's not obtained today likely 2ry to her habitus Flowsheet Date 09/01/2014 Rousseau Score Blood Edema Fundus Height Fundus Units Glucose Ketones Leukocytes Nitrite Labor Signs Protein Cervic Dilation Cervic Effacement Cervic Station neg none 16 wks none negative none neg Type Weight in lbs Pre/Post Dialysis Refused 194.357799305851 BP Diastolic BP Location Tested BP Systolic BP Type 64 L arm 112 sitting Fetus Heart Rate Present A 150 Fetus Movement Comments cont on Fe Tx and PNV. anato mical survey and rto 4 wks Flowsheet Date 09/27/2014 Rousseau Score Blood Edema Fundus Height Fundus Units Glucose Ketones Leukocytes Nitrite Labor Signs Protein Cervic Dilation Cervic Effacement Cervic Station trace none 20 none small none neg Type Weight in lbs Pre/Post Dialysis Refused 224.630352153381 BP Diastolic BP Location Tested BP Systolic BP Type 70 L arm 118 sitting Fetus Heart Rate Present A 150 Fetus Movement A Yes Comments Needing letter of certification for immigration. 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 ( watch for lesions and srom)positive hx of oral lesion but denies hx of genital lesions Flowsheet Date 10/27/2014 Rousseau Score Blood Edema Fundus Height Fundus Units Glucose Ketones Leukocytes Nitrite Labor Signs Protein Cervic Dilation Cervic Effacement Cervic Station neg none 24 none negative none neg Type Weight in lbs Pre/Post Dialysis Refused 233.16547115087 BP Diastolic BP Location Tested BP Systolic BP Type 75 110 sitting Fetus Heart Rate Present A 150 Fetus Movement A Yes Comments labor precautions reviewed w ith pt (5:1) / 1 gct next week unable to be done today lab closed./ rto 4 weeks Flowsheet Date 11/01/2014 Rousseau Score Blood Edema Fundus Height Fundus Units Glucose Ketones Leukocytes Nitrite Labor Signs Protein Cervic Dilation Cervic Effacement Cervic Station Type Weight in lbs Pre/Post Dialysis Refused BP Diastolic BP Location Tested BP Systolic BP Type Fetus Heart Rate Present Fetus Movement Comments Flowsheet Date 11/28/2014 Rousseau Score Blood Edema Fundus Height Fundus Units Glucose Ketones Leukocytes Nitrite Labor Signs Protein Cervic Dilation Cervic Effacement Cervic Station neg none 30 cm none negative none neg Type Weight in lbs Pre/Post Dialysis Refused 237.999929938755 BP Diastolic BP Location Tested BP Systolic BP Type 70 132 sitting Fetus Heart Rate Present A 145 Present Fetus Movement A Yes Comments no c/o abnormal EFF=[id number] will get 3 hr GTT Flowsheet Date 11/29/2014 Rousseau Score Blood Edema Fundus Height Fundus Units Glucose Ketones Leukocytes Nitrite Labor Signs Protein Cervic Dilation Cervic Effacement Cervic Station Type Weight in lbs Pre/Post Dialysis Refused BP Diastolic BP Location Tested BP Systolic BP Type Fetus Heart Rate Present Fetus Movement Comments Flowsheet Date 12/14/2014 Rousseau Score Blood Edema Fundus Height Fundus Units Glucose Ketones Leukocytes Nitrite Labor Signs Protein Cervic Dilation Cervic Effacement Cervic Station neg none 30 none negative none neg Type Weight in lbs Pre/Post Dialysis Refused 237.046605737623 BP Diastolic BP Location Tested BP Systolic BP Type 74 122 sitting Fetus Heart Rate Present A 150 Fetus Movement A Yes Comments diet discussed and referral for dietitian / GESTDM DIET 2000 ALEXANDRO/DAY EXPLAINED TO PATIENT (INDIAN HANDOUT GIVEN) / PT TO KEEP BLOOD SUGAR LOGS TESTING QID f AND 2HPP Flowsheet Date 12/28/2014 Rousseau Score Blood Edema Fundus Height Fundus Units Glucose Ketones Leukocytes Nitrite Labor Signs Protein Cervic Dilation Cervic Effacement Cervic Station neg none 32 cm none negative none neg Type Weight in lbs Pre/Post Dialysis Refused 238.949363495987 BP Diastolic BP Location Tested BP Systolic BP Type 70 122 sitting Fetus Heart Rate Present A 130 Present Fetus Movement A Yes Comments NST reactive--not following diabetic diet (eating lots of bread), never saw soft iron inspector and refusing to do so, only 5 accuchecks performed since last visit due to not having supplies she says--with Marley instructed patient on following diet recommendations and doing fasting and postprandial 3x/day accuchecks every day and follow-up in 1 week--supplies sent to pharmacy per Fany. Flowsheet Date 01/04/2015 Rousseau Score Blood Edema Fundus Height Fundus Units Glucose Ketones Leukocytes Nitrite Labor Signs Protein Cervic Dilation Cervic Effacement Cervic Station trace none 34 wks none negative none neg Type Weight in lbs Pre/Post Dialysis Refused 235.114931265412 BP Diastolic BP Location Tested BP Systolic BP Type 70 120 Fetus Heart Rate Present A 142 Present Fetus Movement A Yes Comments BPP 01/14 today / nst reactive 01/02 will f/uh BPP weekly and NST 2x /week / will get MFM consult for possible growth restriction / rto n 1 wk / pt reports not having testing strips since last visit hence no blood glucose values ERx sent for strips and lancets Flowsheet Date 01/06/2015 Rousseau Score Blood Edema Fundus Height Fundus Units Glucose Ketones Leukocytes Nitrite Labor Signs Protein Cervic Dilation Cervic Effacement Cervic Station neg none trace neg Type Weight in lbs Pre/Post Dialysis Refused 235.860227348752 BP Diastolic BP Location Tested BP Systolic BP Type 72 118 sitting Fetus Heart Rate Present Fetus Movement Comments NST REACTIVE today / rto in one week for second nst of next week--- after having bpp and nst with MF Jerry next Friday. Flowsheet Date 01/13/2015 Rousseau Score Blood Edema Fundus Height Fundus Units Glucose Ketones Leukocytes Nitrite Labor Signs Protein Cervic Dilation Cervic Effacement Cervic Station none Type Weight in lbs Pre/Post Dialysis Refused 238.531868016434 BP Diastolic BP Location Tested BP Systolic BP Type 72 118 Fetus Heart Rate Present Fetus Movement Comments NST reactive / BPP in 4 days plan rto in 7 days for NST and 36 weeks check-up / Flowsheet Date 01/20/2015 Rousseau Score Blood Edema Fundus Height Fundus Units Glucose Ketones Leukocytes Nitrite Labor Signs Protein Cervic Dilation Cervic Effacement Cervic Station neg none 36 cm none negative none neg 0cm 0% - 4 Type Weight in lbs Pre/Post Dialysis Refused 236.109473638639 BP Diastolic BP Location Tested BP Systolic BP Type 72 118 sitting Fetus Heart Rate Present A 130 Present Fetus Movement A Yes Comments NST today s/p BPP 01/14 - cont inue present plan of care - HSV prophylaxis Erx'ed Flowsheet Date 01/30/2015 Rousseau Score Blood Edema Fundus Height Fundus Units Glucose Ketones Leukocytes Nitrite Labor Signs Protein Cervic Dilation Cervic Effacement Cervic Station neg none 37 none negative none neg 0cm 0% - 4 Type Weight in lbs Pre/Post Dialysis Refused 243.938061883982 BP Diastolic BP Location Tested BP Systolic BP Type 70 118 sitting Fetus Heart Rate Present A 140 Present Fetus Movement A Yes Comments C/S c possible BTL schedule @ 39 weeks gest / NST Reactive today BPP due this week at [facility] / scheduled for rep c/s poss btl 02/09/15 at 7:30 am / Pre testing tomorrow at 2 pm L&D and 3pm for labs. Thanks to Tianna who unblocked the time slot Flowsheet Date 02/17/2015 Rousseau Score Blood Edema Fundus Height Fundus Units Glucose Ketones Leukocytes Nitrite Labor Signs Protein Cervic Dilation Cervic Effacement Cervic Station Type Weight in lbs Pre/Post Dialysis Refused 231.497148462774 BP Diastolic BP Location Tested BP Systolic BP Type 82 R arm 126 sitting Fetus Heart Rate Present Fetus Movement Comments Flowsheet Date 03/20/2015 Rousseau Score Blood Edema Fundus Height Fundus Units Glucose Ketones Leukocytes Nitrite Labor Signs Protein Cervic Dilation Cervic Effacement Cervic Station Type Weight in lbs Pre/Post Dialysis Refused 224.409787484149 BP Diastolic BP Location Tested BP Systolic BP Type L arm sitting Fetus Heart Rate Present Fetus Movement Comments Menstrual History Last Menstrual Date Menses Monthly On Bcp Conception Prior Menses Frequency Hcg Plus Date Menarche Onset Age 1205/12/2014 false false 12 Genetic Screening And Infection History Question Response Note Patient's Age Will Be 35 Yea rs Or Older At Estimated Date of Delivery false Thalassemia ([place], Austrian, Mediterranean, Or Background): MCV < 80 false Neural Tube Defect (Meningomyelocele, Spina Bifi da, Or Anencephaly) false Congenital Heart Defect false Down Syndrome false Dwayne-Sachs (eg, Bahai, Cajun, Bahamian-Ukrainian) f alse Philly Disease false Sickle Cell Disease Or Trait () false Hemophilia Or Other Blood Disorders false Muscular Dystrophy false Cystic Fibrosis false Dukedom's Chorea false Mental Retardation/Autism false If Yes, Was Person Tested For Fragile X? false Other Inherited Genetic Or Chromosomal Disorder false Maternal Metabolic Disorder (eg, Type 1 Diabetes , PKU) false Patient Or Baby's Father Had A Child With Defects Not Listed Above false Recurrent Loss, Or A Stillbirth false Medications (including Suppl ements, Vitamins, Herbs, OTC Drugs), Illicit/Recreational Drugs, Alcohol false If Yes, Agent(s) And Strength/Dosage false Any Other Genetic History false Live With Someone With TB Or Exposed To TB false Patient Or Partner Has History Of Genital Herpes true HSV 1-2 Rash Or Viral Illness Since Last Menstrual Perio d false History Of STD, Gonorrhea, Chlamydia, HPV, Syphi lis false Other Infection History false Delivery Information Delivery Date Delivery Type Labor Anesthesia Weeks Gestation Incision Type Labor Labor Length Hrs Delivered By Post Complications Tubal Sterilization Discharge Date Comments 5 None Regional-Sp inal [address] Holliday None false 02/14/2015 Discharge Information Feeding Method Contraceptive Method Maternal HG B and HCT Levels Ob Episode Information Episode Created Date Number of Fetuses Patient Bloodtype Patient rh Status Prepregnancy Weight lbs Domestic Partner Domestic Partner Phone Father Name Racing Car Driver Status 08/19/19 15 1 CLOSED Fetus Data First Name Last Name Admitted to NICU Weight (g) Sex Living Outcome Pediatric Complications Fetus ID Race Codes Race Delivery Type 4082.32 8 F Full Term [id number] Elvis Calculation Initial Elvis Date Initial Exam Date Initial Exam Provider Initial Ultrasound Date Last Menstrual Period Date Ultra Sound Weeks Gestation 0 Eighteen To Twenty Week Elvis Update Ultra Sound Date Fundal Height At Umbil Quickening Date Ultra Sound Latest Weeks Gestation Final Elvis Confirmed By Final Elvis Confirmed Date Final Elvis Date Ultra Sound Latest Days Gestation 0 0 Menstrual History Last Menstrual Date Menses Monthly On Bcp Conception Prior Menses Frequency Hcg Plus Date Menarche Onset Age Delivery Information Delivery Date Delivery Type Labor Anesthesia Weeks Gestation Incision Type Labor Labor Length Hrs Delivered By Post Complications Tubal Sterilization Discharge Date Comments 8 39 BREECH Discharge Information Feeding Method Contraceptive Method Maternal HG B and HCT Levels Ob Episode Information Episode Created Date Number of Fetuses Patient Bloodtype Patient rh Status Prepregnancy Weight lbs Domestic Partner Domestic Partner Phone Father Name Racing Car Driver Status 08/19/19 15 1 CLOSED Fetus Data First Name Last Name Admitted to NICU Weight (g) Sex Living Outcome Pediatric Complications Fetus ID Race Codes Race Delivery Type 3628.73 6 F Full Term [id number] Vaginal Elvis Calculation Initial Elvis Date Initial Exam Date Initial Exam Provider Initial Ultrasound Date Last Menstrual Period Date Ultra Sound Weeks Gestation 0 Eighteen To Twenty Week Elvis Update Ultra Sound Date Fundal Height At Umbil Quickening Date Ultra Sound Latest Weeks Gestation Final Elvis Confirmed By Final Elvis Confirmed Date Final Elvis Date Ultra Sound Latest Days Gestation 0 0 Menstrual History Last Menstrual Date Menses Monthly On Bcp Conception Prior Menses Frequency Hcg Plus Date Menarche Onset Age Delivery Information Delivery Date Delivery Type Labor Anesthesia Weeks Gestation Incision Type Labor Labor Length Hrs Delivered By Post Complications Tubal Sterilization Discharge Date Comments 1 [address] [facility] house in [facility] Discharge Information Feeding Method Contraceptive Method Maternal HG B and HCT Levels Ob Episode Information Episode Created Date Number of Fetuses Patient Bloodtype Patient rh Status Prepregnancy Weight lbs Domestic Partner Domestic Partner Phone Father Name Racing Car Driver Status 08/19/19 15 1 CLOSED Fetus Data First Name Last Name Admitted to NICU Weight (g) Sex Living Outcome Pediatric Complications Fetus ID Race Codes Race Delivery Type 3175.14 4 F Full Term [id number] Elvis Calculation Initial Elvis Date Initial Exam Date Initial Exam Provider Initial Ultrasound Date Last Menstrual Period Date Ultra Sound Weeks Gestation 0 Eighteen To Twenty Week Elvis Update Ultra Sound Date Fundal Height At Umbil Quickening Date Ultra Sound Latest Weeks Gestation Final Elvis Confirmed By Final Elvis Confirmed Date Final Elvis Date Ultra Sound Latest Days Gestation 0 0 Menstrual History Last Menstrual Date Menses Monthly On Bcp Conception Prior Menses Frequency Hcg Plus Date Menarche Onset Age Delivery Information Delivery Date Delivery Type Labor Anesthesia Weeks Gestation Incision Type Labor Labor Length Hrs Delivered By Post Complications Tubal Sterilization Discharge Date Comments 3 Discharge Information Feeding Method Contraceptive Method Maternal HG B and HCT Levels Ob Episode Information Episode Created Date Number of Fetuses Patient Bloodtype Patient rh Status Prepregnancy Weight lbs Domestic Partner Domestic Partner Phone Father Name Racing Car Driver Status 01/07/20 18 1 O Positive CLOSED Fetus Data First Name Last Name Admitted to NICU Weight (g) Sex Living Outcome Pediatric Complications Fetus ID Race Codes Race Delivery Type [id number] Problems Problem Notes Problem Name Start Date End Date Resolution Snomed Code Not e Maternal history of gestational diabetes [id number] A1c at IOB; follow closely Past history of section [id number] h/o CDx3; RCD+B TL at 39wks Morbid obesity [id number] consi jadiel early 1hr GTT Advanced maternal age [id number] referral to M M placed 01/07 Genital herpes simplex 01/06/2018 [id number] no lesions at I OB visit; suppression starting 36wks Elvis Calculation Initial Elvis Date Initial Exam Date Initial Exam Provider Initial Ultrasound Date Last Menstrual Period Date Ultra Sound Weeks Gestation 08/20/2018 01/06/2018 [email or web address] 11/13/2017 0 Eighteen To Twenty Week Elvis Update Ultra Sound Date Fundal Height At Umbil Quickening Date Ultra Sound Latest Weeks Gestation Final Elvis Confirmed By Final Elvis Confirmed Date Final Elvis Date Ultra Sound Latest Days Gestation 0 08/21/19 19 0 Pre-luanne Flowsheet Flowsheet Date 01/06/2018 Rousseau Score Blood Edema Fundus Height Fundus Units Glucose Ketones Leukocytes Nitrite Labor Signs Protein Cervic Dilation Cervic Effacement Cervic Station neg none negative trace Type Weight in lbs Pre/Post Dialysis Refused 241.036375703113 BP Diastolic BP Location Tested BP Systolic BP Type 83 122 sitting Fetus Heart Rate Present Fetus Movement Comments 37 y/o at 7w5d by hickey re LMP 11/13/17 (ELVIS 08/20/18). complicated by h/o CDx3, AMA, h/o GDM, HSV and morbid obesity. Plan for RCD. Desires BTL. OB panel, A1c and MFM referral today. Unable to assess well-being due to early gestational age. Flowsheet Date 02/02/2018 Rousseau Score Blood Edema Fundus Height Fundus Units Glucose Ketones Leukocytes Nitrite Labor Signs Protein Cervic Dilation Cervic Effacement Cervic Station Type Weight in lbs Pre/Post Dialysis Refused 242.952533673821 BP Diastolic BP Location Tested BP Systolic BP Type 80 124 Fetus Heart Rate Present Fetus Movement Comments Flowsheet Date 02/12/2018 Rousseau Score Blood Edema Fundus Height Fundus Units Glucose Ketones Leukocytes Nitrite Labor Signs Protein Cervic Dilation Cervic Effacement Cervic Station Type Weight in lbs Pre/Post Dialysis Refused 239.378737516533 BP Diastolic BP Location Tested BP Systolic BP Type 80 L arm 130 sitting Fetus Heart Rate Present Fetus Movement Comments Flowsheet Date 02/17/2018 Rousseau Score Blood Edema Fundus Height Fundus Units Glucose Ketones Leukocytes Nitrite Labor Signs Protein Cervic Dilation Cervic Effacement Cervic Station Type Weight in lbs Pre/Post Dialysis Refused 242.542445131611 BP Diastolic BP Location Tested BP Systolic BP Type 70 L arm 110 sitting Fetus Heart Rate Present Fetus Movement Comments Menstrual History Last Menstrual Date Menses Monthly On Bcp Conception Prior Menses Frequency Hcg Plus Date Menarche Onset Age 0611/13/2017 true false 28 Genetic Screening And Infection History Question Response Note Patient's Age Will Be 35 Years Or Older At Estim ated Date of Delivery true Thalassemia ([place], Austrian, Mediterranean, Or Background): MCV < 80 false Neural Tube Defect (Meningomyelocele, Spina Bifi da, Or Anencephaly) false Congenital Heart Defect false Down Syndrome false Dwayne-Sachs (eg, Bahai, Cajun, Bahamian-Ukrainian) f alse Philly Disease false Sickle Cell Disease Or Trait () false Hemophilia Or Other Blood Disorders false Muscular Dystrophy false Cystic Fibrosis false Dukedom's Chorea false Mental Retardation/Autism false Maternal Metabolic Disorder (eg, Type 1 Diabetes , PKU) false Patient Or Baby's Father Had A Child With Defects Not Listed Above false Recurrent Loss, Or A Stillbirth false Medications (including Suppl ements, Vitamins, Herbs, OTC Drugs), Illicit/Recreational Drugs, Alcohol false If Yes, Agent(s) And Strength/Dosage false Live With Someone With TB Or Exposed To TB false Patient Or Partner Has History Of Genital Herpes true Rash Or Viral Illness Since Last Menstrual Perio d false History Of STD, Gonorrhea, Chlamydia, HPV, Syphi lis false Delivery Information Delivery Date Delivery Type Labor Anesthesia Weeks Gestation Incision Type Labor Labor Length Hrs Delivered By Post Complications Tubal Sterilization Discharge Date Comments Discharge Information Feeding Method Contraceptive Method Maternal HG B and HCT Levels Ob Episode Information Episode Created Date Number of Fetuses Patient Bloodtype Patient rh Status Prepregnancy Weight lbs Domestic Partner Domestic Partner Phone Father Name Racing Car Driver Status 07/25/19 18 1 DELETED Fetus Data First Name Last Name Admitted to NICU Weight (g) Sex Living Outcome Pediatric Complications Fetus ID Race Codes Race Delivery Type [id number] Elvis Calculation Initial Elvis Date Initial Exam Date Initial Exam Provider Initial Ultrasound Date Last Menstrual Period Date Ultra Sound Weeks Gestation 03/25/2018 07/25/2017 06/18/2017 0 Eighteen To Twenty Week Elvis Update Ultra Sound Date Fundal Height At Umbil Quickening Date Ultra Sound Latest Weeks Gestation Final Elvis Confirmed By Final Elvis Confirmed Date Final Elvis Date Ultra Sound Latest Days Gestation 0 03/25/20 18 0 Menstrual History Last Menstrual Date Menses Monthly On Bcp Conception Prior Menses Frequency Hcg Plus Date Menarche Onset Age 0106/18/2017 true Delivery Information Delivery Date Delivery Type Labor Anesthesia Weeks Gestation Incision Type Labor Labor Length Hrs Delivered By Post Complications Tubal Sterilization Discharge Date Comments Discharge Information Feeding Method Contraceptive Method Maternal HG B and HCT Levels
--- OUTSIDE RECORDS SUMMARY | 2025-05-23 18:36 | XMS_ITS | Clinical Summary ---
Author Organization [facility] Address [facility] [place] [address] Care Team Providers Care Emergency Room Clinician Name Role Phone Unavailable Primary Care Provider Unavailabl e Source Comments [facility],non-owned Affiliates and Associated Physician Practices is amultiple site organization consisting of ambulatory clinics and hospital sitesin [place], [place], [place] and [place]. This disclosure is being madepursuant to the Care Everywhere program and may not contain all information available regarding this patient. Last updated 18.[facility] Allergies No known active allergies Medications * Be aware that medications may not be up to date on this document. Alwaysverify current medications with the patient. Vit-Fe Fumarate-FA ( VITAMIN) 28-0.8 MG tablet Take 1 Tab by mouth once daily Active ferrous gluconate 324 (38 FE) MG tablet Take 324 mg by mouth once daily Active insulin NPH (HUMULIN N) vial Take 16 units by injection at bedtime. 10 mL 3 5 Active Insulin Syringe-Needle U-100 (BD ULTRAFINE 31 G X 6 MM 0.5 ML) 31G X 15/64 0.5 ML syringe Use one syringe for each injection. 100 Syringe 1 5 Active Active Problems Problem Noted Date Diagnosed Date AMA (advanced maternal age) multigravida 35+ Obesity in 02/06/2018 History of gestational diabetes mellitus (GDM) 0 02/06/2018 Obesity affecting , antepartum 01/17/20 15 Overview (04/16/2015): Previous delivery, antepartum condition or complication 01/16/2015 Social History Tobacco Use Types Packs/Day Years Used Date Smoking Tobacco: Never Alcohol Use Standard Drinks/Week Comments No 0 (1 standard drink = 0.6 oz pur e alcohol) Comments No Sex and Gender Information Value Date Recorded Sex Assigned at Not on file Legal Sex Female 7:39 AM CDT Gender Identity Not on file Sexual Orientation Not on file Last Filed Vital Signs Vital Sign Reading Time Taken Comments Blood Pressure 119/70 01/17/2015 9:44 AM CDT Pulse 86 01/10/2015 12:26 PM CDT Temperature - - Respiratory Rate - - Oxygen Saturation - - Inhaled Oxygen Concentration - - Weight 108.6 kg (239 lb 6.4 oz) 015 12:26 PM CDT Height 154.9 cm (5' 1) 01/10/2015 12:2 6 PM CDT Body Mass Index 45.23 01/10/2015 12:26 PM CDT Plan of Treatment Health Maintenance Due Date Last Done Comments LIPID TESTING 1982 MAMMOGRAM 1982 HIV SCREENING 1997 HEPATITIS C SCREENING 10/16/2000 DTAP/TDAP/TD VACCINES (1 - Tdap) 2001 HEPATITIS B VACCINE (1 of 3 - 19+ 3-dose series) 2001 HPV VACCINE (1 - 3-dose SCDM series) 2009 DEPRESSION SCREENING 06/09/2024 COVID-19 VACCINE (1 - 2024-2 6 season) 2025 INFLUENZA VACCINE (#1) 2025 ZOSTER VACCINE (1 of 2) 2032 HIB VACCINE Aged Out No longer eligi ble based on patient's age to complete this topic MENINGOCOCCAL (Group B) VACC INE SHARED DECISION-MAKING Aged Out No longer eligibl e based on patient's age to complete this topic MENINGOCOCCAL GROUPS A/C/Y/W VACCINE Aged Out No longer eligible b ased on patient's age to complete this topic PNEUMOCOCCAL VACCINE Aged Out No long er eligible based on patient's age to complete this topic Insurance [facility]
[2025-05-23 19:06] VITALS: PULSE 88; O2SAT 95
[2025-05-23 19:11] VITALS: O2SAT 95
[2025-05-23 19:28] LABS: Hematocrit 38.1 % (37.0-47.0); Hemoglobin 10.5 g/dL (12.0-15.0); Immature Granulocyte Percent A 0.7 % (0-0.5); Lymphocytes Absolute Auto 2.77 K/mm3 (0.9-3.2); Mean Corpuscular HGB Conc 27.6 g/dl (32-36); Mean Corpuscular Hemoglobin 19.1 pg (26-34); Mean Corpuscular Volume 69.3 fl (80-100); Nucleated Red Blood Cells Absolute Auto 0.030 K/mm3 (0.0-0.012); Nucleated Red Blood Cells Perc 0.2 % (0.0-0.2); Platelet Count Result 407 k/mm3 (150-375); Red Blood Count 5.50 M/mm3 (4.2-5.4); White Blood Count 14.3 K/mm3 (4.5-10.0)
--- NOTE | 2025-05-23 19:28 | ED_ITS ---
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 Patient presents to the emergency department today with complaints of shortness of breath, not feeling well, headache, fever and a productive cough. She has no sick contacts and was otherwise in her normal state of health. She does have a history of hypertension diabetes and on medications for both. Denies any ongoing changes to her health and states her symptoms have been going on close to 1 week. Denies any chest discomfort presently but states that when she coughs she gets some pain in chest pressure on the right side. No leg swelling or DVT. No recent surgical procedures. No history of thromboembolic event. Related Data Home Medications ?Medication ?Instructions ?Recorded ?Confirmed ?Last Taken ?Type Humulin N NPH U-100 Insulin See Rx Instructions .Route .COMPLEX 03/08/21 03/08/21 03/07/21 History insulin lispro 100 unit/mL See Rx Instructions .Route .COMPLEX 03/08/21 03/08/21 03/07/21 History subcutaneous solution (Humalog U-100 Insulin) Allergies Allergy/AdvReac Type Severity Reaction Status Date / Time No Known Allergies Allergy Verified 05/23/25 18:25 PMFSH Past Medical History Medical History (Updated 05/24/25 @ 05:53 by Maikol Thompson MD) Diabetes in Morbid obesity Medical history unknown History of miscarriage Surgical History Surgical History (Updated 03/08/21 @ 07:02 by Cristobal Martinez MD) History of section Surgical history unknown Social History Social History Smoking status: Never smoker Alcohol intake: never Substance use: never Gender identity (if verbalized by the patient): Female Spiritual care concerns: No Agree to blood products: No Exam 2 Narrative: GENERAL: [Well-appearing, well-nourished, and in no acute distress.] HEAD: [Normocephalic, atraumatic.] EYES: [PERRLA and EOMI.] ENT: Nares clear, no rhinorrhea or epistaxis. Mucous membranes moist. NECK: Supple. CHEST:Has asymmetric breath sounds with coarse breath sounds in the right lung base but no wheezing or prolonged expiratory phase HEART: [Regular rate and rhythm]. No murmur heard. [Normal peripheral pulses.] ABDOMEN: [Soft, nondistended], [nontender], [No rigidity or guarding] EXTREMITIES: Normal range of motion. [No edema.] SKIN: Warm, dry, no rash. NEURO: [No focal deficits]. Alert and oriented [x3.] PSYCH: [Normal mood and affect.] Course Vital Signs Vital signs: Vital Signs Temperature 36.8 C 05/23/25 18:22 Pulse Rate 95 05/23/25 18:22 Respiratory Rate 20 05/23/25 18:22 Blood Pressure 146/91 H 05/23/25 18:22 Pulse Oximetry 93 05/23/25 18:22 Temperature 36.8 C 05/23/25 18:22 Pulse Rate 93 05/24/25 00:59 Respiratory Rate 24 H 05/24/25 00:59 Blood Pressure 115/62 05/24/25 00:59 Pulse Oximetry 95 05/24/25 00:59 Oxygen Delivery Nasal Cannula 05/23/25 19:11 Oxygen Flow Rate 2 05/23/25 19:11 [facility] MDM Narrative Medical decision making narrative: 44-year-old female with a past medical history including 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 Patient presents to the emergency department today with complaints of shortness of breath, not feeling well, headache, fever and a productive cough. She has no sick contacts and was otherwise in her normal state of health. She does have a history of hypertension diabetes and on medications for both. Denies any ongoing changes to her health and states her symptoms have been going on close to 1 week. Denies any chest discomfort presently but states that when she coughs she gets some pain in chest pressure on the right side. No leg swelling or DVT. No recent surgical procedures. No history of thromboembolic event. Patient is overall well-appearing not any distress but is complaining of shortness of breath and saturating 92-93% on room air. Improved to 95+ on 2 L nasal cannula and she feels better with oxygen. No tachypnea, tachycardia or significant blood pressure concerns. She has asymmetric breath sounds with coarse breath sounds in the right lung base but no wheezing or prolonged expiratory phase. Her chest x-rays concerning for large right-sided pleural effusion and atelectasis in several lobes of the right lung. Given her history of tumor in the right-sided chest requiring surgical resection could be recurrence versus parapneumonic effusion versus malignant effusion. Low suspicion cardiac etiology. Cardiac workup ordered CT of the chest was obtained with contrast. COVID fluid RSV panel pain. Patient has a very large bilobular chest mass that appears to be worse than her previous chest mass found on imaging and resected. She also has compressive atelectasis and hypoxemia with an elevated white count. Placed empirically on antibiotics with azithromycin and Rocephin. [facility] was spoken to after we discovered that this is were patient's surgery was. Cardiothoracic surgeon Dr. Rodriguez will be on consult after discussion with transfer center. Patient was accepted direct admit to the hospitalist service and patient was transferred via ALS ambulance at this time and left the hospital with no further complaints and remained on supplemental oxygen with antibiotics and nuclear monitoring technician. Accepting physician named Dr. Brasher at [facility] in [place]. Differential Diagnosis Differential Diagnosis: Given her history of tumor in the right-sided chest requiring surgical resection could be recurrence versus parapneumonic effusion versus malignant effusion. Low suspicion cardiac etiology. Cardiac workup ordered CT of the chest was obtained with contrast. COVID fluid RSV panel pain. Lab Data MDM Lab Attestation statement: I personally reviewed the patient's lab results. 05/23/25 19:07 05/23/25 19:07 Labs: Lab Results 05/23/25 05/23/25 05/23/25 Range/Units 19:07 19:07 19:46 WBC 14.3 H (4.5-10.0) K/mm3 RBC 5.50 H (4.2-5.4) M/mm3 Hgb 10.5 L (12.0-15.0) g/dL Hct 38.1 (37.0-47.0) % MCV 69.3 L (80-100) fl MCH 19.1 L (26-34) pg MCHC 27.6 L (32-36) g/dl RDW 17.5 H (11.5-14.5) % Plt Count 407 H D (150-375) k/mm3 MPV 10.2 (7.4-10.4) fl Immature Gran % (Auto) 0.7 H (0-0.5) % Neut % (Auto) 70.3 (45.5-73.1) % Lymph % (Auto) 19.4 (18.3-44.2) % Villalba % (Auto) 8.2 (2.6-8.5) % Eos % (Auto) 1.0 (0-4.4) % Baso % (Auto) 0.4 (0.2-1.2) % Lymph # (Auto) 2.77 (0.9-3.2) K/mm3 Villalba # (Auto) 1.2 H (0.1-0.6) K/mm3 Eos # (Auto) 0.1 (0-0.3) K/mm3 Baso # (Auto) 0.1 (0.0-0.1) K/mm3 Abs Immat Gran (auto) 0.10 H (0.00-0.031) K/mm3 Absolute Neuts (auto) 10.0 H (1.3-6.7) K/mm3 Absolute Nucleated RBC 0.030 H (0.0-0.012) K/mm3 Band Neutrophils % 0 (0-6) % Nucleated RBC % 0.2 (0.0-0.2) % Platelet Estimate Increased (Adequate) Hypochromasia 1+ Anisocytosis 2+ Microcytosis 1+ (NORMAL) Schistocytes None seen PT 13.5 (11.1-14.7) Seconds INR 1.0 APTT 26.6 (22.3-36.8) Seconds Sodium 133 L (137-145) mmol/L Potassium 4.4 (3.4-5.0) mmol/L Chloride 93 L (98-107) mmol/L Carbon Dioxide 35 H (22-30) mmol/L Anion Gap 5 (4-12) mmol/L BUN 10 (7-17) mg/dL Creatinine 0.45 L (0.7-1.0) mg/dL Estim Creat Clear Calc 164 ml/min Estimated GFR > 60 (59 - ) Glucose 254 H (65-110) mg/dL Calcium 9.1 (8.4-10.2) mg/dL Total Bilirubin 0.3 (0.2-1.3) mg/dL AST 50 H (14-36) U/L ALT 53 H (6-35) U/L Alkaline Phosphatase 116 (38-126) U/L Troponin I < 0.012 (0.000-0.034) ng/mL NT-Pro-B Natriuret Pep 65 Cancelled (19.9-100) pg/mL Total Protein 7.8 (6.3-8.2) g/dL Albumin 3.9 (3.5-5.1) g/dL Lipase 111 (23-300) U/L POC Urine HCG, Qual (Negative) Influenza A (RT-PCR) Negative (Negative) Influenza B (RT-PCR) Negative (Negative) RSV (RT-PCR) Negative (Negative) SARS-CoV-2 RNA (RT-PCR) Negative (Negative) 05/23/25 05/23/25 05/24/25 Range/Units 20:56 22:04 00:53 WBC (4.5-10.0) K/mm3 RBC (4.2-5.4) M/mm3 Hgb (12.0-15.0) g/dL Hct (37.0-47.0) % MCV (80-100) fl MCH (26-34) pg MCHC (32-36) g/dl RDW (11.5-14.5) % Plt Count (150-375) k/mm3 MPV (7.4-10.4) fl Immature Gran % (Auto) (0-0.5) % Neut % (Auto) (45.5-73.1) % Lymph % (Auto) (18.3-44.2) % Villalba % (Auto) (2.6-8.5) % Eos % (Auto) (0-4.4) % Baso % (Auto) (0.2-1.2) % Lymph # (Auto) (0.9-3.2) K/mm3 Villalba # (Auto) (0.1-0.6) K/mm3 Eos # (Auto) (0-0.3) K/mm3 Baso # (Auto) (0.0-0.1) K/mm3 Abs Immat Gran (auto) (0.00-0.031) K/mm3 Absolute Neuts (auto) (1.3-6.7) K/mm3 Absolute Nucleated RBC (0.0-0.012) K/mm3 Band Neutrophils % (0-6) % Nucleated RBC % (0.0-0.2) % Platelet Estimate (Adequate) Hypochromasia Anisocytosis Microcytosis (NORMAL) Schistocytes PT (11.1-14.7) Seconds INR APTT (22.3-36.8) Seconds Sodium (137-145) mmol/L Potassium (3.4-5.0) mmol/L Chloride (98-107) mmol/L Carbon Dioxide (22-30) mmol/L Anion Gap (4-12) mmol/L BUN (7-17) mg/dL Creatinine (0.7-1.0) mg/dL Estim Creat Clear Calc ml/min Estimated GFR (59 - ) Glucose (65-110) mg/dL Calcium (8.4-10.2) mg/dL Total Bilirubin (0.2-1.3) mg/dL AST (14-36) U/L ALT (6-35) U/L Alkaline Phosphatase (38-126) U/L Troponin I < 0.012 < 0.012 (0.000-0.034) ng/mL NT-Pro-B Natriuret Pep (19.9-100) pg/mL Total Protein (6.3-8.2) g/dL Albumin (3.5-5.1) g/dL Lipase (23-300) U/L POC Urine HCG, Qual Negative (Negative) Influenza A (RT-PCR) (Negative) Influenza B (RT-PCR) (Negative) RSV (RT-PCR) (Negative) SARS-CoV-2 RNA (RT-PCR) (Negative) Imaging Data Attestation: I personally reviewed and interpreted this imaging study as follows: My impression: Impressions Chest X-Ray 05/23/25 18:52 IMPRESSION: Large right pleural effusion with right middle lobe and right lower lobe atelectasis. [ ] Chest CT 05/23/25 21:54 IMPRESSION: Irregular lobulated enhancing mass in the right middle lobe measures 11.8 x 8.9 x 10.9 cm. Nonenhancing component posteriorly measures 11.6 x 8.3 x 14.3 cm. Right middle lobe and right lower lobe atelectasis is noted. Moderate size right pleural effusion. All CT scans at this facility are performed using low dose modulation techniques as appropriate to perform exam including the following: automated exposure control; use of iterative reconstruction technique; adjustment of the mA and/or kV according to patient size (this includes techniques or standardized protocols for targeted exams where dose is matched to indication/reason for exam). Radiologist's impression: ITS Impressions Chest X-Ray 05/23/25 18:52 IMPRESSION: Large right pleural effusion with right middle lobe and right lower lobe atelectasis. [ ] Chest CT 05/23/25 21:54 IMPRESSION: Irregular lobulated enhancing mass in the right middle lobe measures 11.8 x 8.9 x 10.9 cm. Nonenhancing component posteriorly measures 11.6 x 8.3 x 14.3 cm. Right middle lobe and right lower lobe atelectasis is noted. Moderate size right pleural effusion. All CT scans at this facility are performed using low dose modulation techniques as appropriate to perform exam including the following: automated exposure control; use of iterative reconstruction technique; adjustment of the mA and/or kV according to patient size (this includes techniques or standardized protocols for targeted exams where dose is matched to indication/reason for exam). Critical Care Time Critical Care Time Critical Care Time: Yes Time Type: Intermittent Initial evaluation, discuss w/ involved parties, attempting to gather old records: 10 minutes Documenting medical record: 5 minutes Review of results (EKG's, labs, imaging): 5 minutes Serial repeat bedside evaluation: 10 minutes Discussing case with multiple memebers of the care team and consultants: 15 minutes Total Critical Care Time: 45 Discharge Plan Discharge Clinical Impression: Mass in chest, Acute hypoxic respiratory failure, Hypoxemia requiring supplemental oxygen Patient Disposition: Acute Care Hospital Condition: Stable Patient Language: Albanian Prescriptions: No Action ferrous sulfate 325 mg (65 mg iron) Tablet 324 mg PO BIDWM Qty: 30 0RF vit-iron fum-folic ac 28 mg iron- 800 mcg tablet 1 tablet PO DAILY Qty: 90 0RF insulin lispro [Humalog U-100 Insulin] 100 unit/mL solution See Rx Instructions .ROUTE .COMPLEX Rx Instructions: 23 unit subcutaneously Humulin N NPH U-100 Insulin See Rx Instructions .ROUTE .COMPLEX Rx Instructions: 23 units subcutaneously hydrocodone-acetaminophen 5-325 mg tablet 1 tablet PO Q4H PRN (Reason: pain) Qty: 30 0RF Follow-up/Referrals: PHYSICIAN NOT ON STAFF,NONSTAFF [Primary Care Provider]
[2025-05-23 19:38] VITALS: BP 122/82; PULSE 87; RESP 18; O2SAT 95
[2025-05-23 19:46] LABS: Alanine Aminotransferase 53 U/L (6-35); Albumin Level 3.9 g/dL (3.5-5.1); Alkaline Phosphatase 116 U/L (38-126); Anion Gap 5 mmol/L (4-12); Aspartate Amino Transferase 50 U/L (14-36); Bilirubin,Total 0.3 mg/dL (0.2-1.3); Blood Urea Nitrogen 10 mg/dL (7-17); Calcium 9.1 mg/dL (8.4-10.2); Carbon Dioxide 35 mmol/L (22-30); Chloride 93 mmol/L (98-107); Estimated CRCL calculation 164 ml/min; Estimated Glomerular Filt Rate > 60; Glucose 254 mg/dL (65-110); Lipase 111 U/L (23-300); Potassium 4.4 mmol/L (3.4-5.0); Sodium 133 mmol/L (137-145); Total Protein 7.8 g/dL (6.3-8.2)
[2025-05-23 19:47] LABS: INR 1.0; Prothrombin Time 13.5 Seconds (11.1-14.7)
[2025-05-23 19:48] LABS: Partial Thromboplastin Time 26.6 Seconds (22.3-36.8)
[2025-05-23 19:50] LABS: NT Pro B Type Natriuretic Pept 65 pg/mL (19.9-100); Troponin I < 0.012 ng/mL (0.000-0.034)
[2025-05-23 19:51] LABS: Band Neutrophils Percent 0 % (0-6); Hypochromasia 1+; Schistocytes None Seen
[2025-05-23 19:52] LABS: Anisocytosis 2+; Microcytosis 1+ (NORMAL)
[2025-05-23 20:29] LABS: Influenza A QL RT-PCR Negative (Negative); Influenza B QL RT-PCR Negative (Negative); RSV RNA, RT-PCR Negative (Negative); SARS-CoV-2 RNA PCR Negative (Negative)
[2025-05-23 20:57] VITALS: BP 132/81; PULSE 98; RESP 18; O2SAT 94
[2025-05-23 21:01] LABS: BEDSIDEPREGUCG Negative (Negative)
--- NOTE | 2025-05-23 21:55 | ECG_ITS ---
Test Date: 2025-05-23 22:03:02 Measurements Intervals [facility] Rate: 90 P: 26 MD: 158 QRS: -2 QRSD: 82 T: 29 QT: 360 QTc: 442 Interpretive Statements SINUS RHYTHM LOW QRS VOLTAGE IN PRECORDIAL LEADS POSSIBLE ANTERIOR MYOCARDIAL INFARCTION , OF INDETERMINATE AGE BASELINE ARTIFACT- I, AVR, AVL ABNORMAL ECG Compared to ECG 05/23/2025 18:26:36 NO SIGNIFICANT CHANGE Electronically Signed On 05-24-2025 06:04:08 [employer] D[employer]LLING MANAGER by Mina Rock D.O.
[2025-05-23 22:35] LABS: Troponin I < 0.012 ng/mL (0.000-0.034)
[2025-05-23 22:55] VITALS: BP 123/76; PULSE 100; RESP 29; O2SAT 95
[2025-05-24] MEDS: cefTRIAXone 1 GM in SODIUM CHLORIDE 0.9% IV 50 ML 100 ML IVPB (00:40)
--- NOTE | 2025-05-24 00:40 | PC.NURSE ---
MD Thompson verbally states he does not need blood cultures drawn prior to starting IV antibiotics.
[2025-05-24 00:59] VITALS: BP 115/62; PULSE 93; RESP 24; O2SAT 95
[2025-05-24 01:22] LABS: Troponin I < 0.012 ng/mL (0.000-0.034)
[2025-05-24] MEDS: AZITHROMYCIN IV 500 MG in SODIUM CHLORIDE 0.9% IV 250 ML IVPB (01:56)
== END 2025-05-24 02:52 | disposition short-term general hospital (02) ==
PROVIDERS: Student in an Organized Health Care Education/Training Program; Emergency Provider Student in an Organized Health Care Education/Training Program
DX: J96.01 Acute respiratory failure with hypoxia (principal); R22.2 Localized swelling, mass and lump, trunk; Z20.822 Contact with and (suspected) exposure to COVID-19; E66.01 Morbid (severe) obesity due to excess calories; Z68.41 Body mass index [BMI] 40.0-44.9, adult; R94.31 Abnormal electrocardiogram [ECG] [EKG]; J90 Pleural effusion, not elsewhere classified
CPT/HCPCS: 36415; 71046; 71260; 80053; 81025; 83690; 83880; 84484; 85025; 85610; 85730; 87637; 93005; 96365; 96367; 99291; J0456; J0696; J7050; Q9967